=== PATIENT | male | born 1965 | race African-American/Black ===

== ENCOUNTER 2019-12-22 11:22 | Inpatient (IN) | payer OTHER ==
--- NOTE | 2019-12-22 12:03 | BHS.RME ---
Substance Use & Tx History - Substance Use History Alcohol Substance amount: 6 pack beer, 1 pint of vodka Frequency of use: Daily Substance route: Oral Date of Last Use: 12/21/19 Cocaine (Crack) Substance amount: $100 Frequency of use: Daily Substance route: Smoking Date of Last Use: 12/21/19 Cannabis Substance amount: $5 Frequency of use: Daily Substance route: Smoking Date of Last Use: 12/22/19 CIWA Nausea/Vomitin-Int. Nausea w/Dry Heave Muscle Tremors: 4-Moderate,w/Arms Extend Anxiety: 4-Mod. Anxious/Guarded Agitation: 3 Paroxysmal Sweats: 5 Orientation: 0-Oriented Tacttile Disturbances: 3-Moderate Itch/Numb/Burn Auditory Disturbances: 0-None Visual Disturbances: 0-None Headache: 5-Severe (last drank last night at 10:30PM) CIWA-Ar Total Score: 28
--- NOTE | 2019-12-22 13:02 | HP ---
CIWA Score Nausea/Vomitin-Int. Nausea w/Dry Heave Muscle Tremors: 4-Moderate,w/Arms Extend Anxiety: 4-Mod. Anxious/Guarded Agitation: 3 Paroxysmal Sweats: 5 Orientation: 0-Oriented Tacttile Disturbances: 3-Moderate Itch/Numb/Burn Auditory Disturbances: 0-None Visual Disturbances: 0-None Headache: 5-Severe (last drank last night at 10:30PM) CIWA-Ar Total Score: 28 - Admission Criteria OASAS Guidelines: Admission for Medically Managed Detox: Requires at least one of the followin. CIWA greater than 12 2. Seizures within the past 24 hours 3. Delirium tremens within the past 24 hours 4. Hallucinations within the past 24 hours 5. Acute intervention needed for co occurring medical disorder 6. Acute intervention needed for co occurring psychiatric disorder 7. Severe withdrawal that cannot be handled at a lower level of care (continued vomiting, continued diarrhea, abnormal vital signs) requiring intravenous medication and/or fluids 8. Admitting History and Physical - Admission Chief Complaint: Mr. Wilkinson is a 54 yo gentleman who presents asking for detox for alcohol with follow up Rehab. History of Present Illness: Mr. Wilkinson is a 54 yo gentleman who presents asking for detox for alcohol with follow up Rehab. 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 Black out 2-3 days ago. No seizures. 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 Crack: first use age 20 y, last use yesterday, $100. per day Cannabis: first use at [age]age of 10 y, last use this am, $5. per day Cits: 4-10 per day K-2: first use at the age of 46y, last use 2 days ago, neighbor supplies drug, he smokes 2-3 joints per night SOC: domiciled, [facility] History Source: Patient Limitations to Obtaining History: No Limitations - Past Medical History Cardiovascular: Yes: HTN Pulmonary: Yes: Asthma Heme/Onc: Yes: Other (G6PD deficiency) Musculoskeletal: Yes: Osteoarthritis Endocrine: Yes: Diabetes Mellitus - Past Surgical History Additional Past Surgical History: Left hip replacement, left toe bunionectomy, mammoplasty - Alcohol/Substance Use Hx Alcohol Use: Yes History of Substance Use: reports: Cocaine, Marijuana - Social History Usual Living Arrangement: Yes: Alone Admission [facility] - HPI Exam Limitations: No Limitations - Ebola screening Have you traveled outside of the country in the last 21 days: No Have you had contact with anyone from an Ebola affected area: No Have you been sick,other than usual withdrawal symptoms: No Do you have a fever: No - Review of Systems Constitutional: Unexplained wgt Loss (50 lbs loss in the past 4 months) EENT: reports: Other (pain with deep inspiration x 2) Cardiac: reports: No Symptoms Reported GI: reports: Diarrhea, Nausea : reports: No Symptoms Reported Musculoskeletal: reports: Joint Pain Integumentary: reports: No Symptoms Reported Neuro: reports: Headache Endocrine: reports: Unexplained Weight Loss (does not check his sugar) Hematology: reports: No Symptoms Reported Psychiatric: reports: No Sypmtoms Reported Patient History - Smoking Cessation Smoking history: Current every day smoker Have you smoked in the past 12 months: Yes Aproximately how many cigarettes per day: 10 Initiated information on smoking cessation: Yes 'Breaking Loose' booklet given: 12/22/19 Admission Physical Exam [facility] - Physical General Appearance: Yes: Nourished, Appropriately Dressed HEENTM: Yes: Hearing grossly Normal, Other (loose fitting dentures, mildly dysmorphic facies) Respiratory: Yes: Lungs Clear Breast: Yes: Mastectomy (scars beneath both breasts, well healed surgical scars) Cardiology: Yes: Systolic Murmur Abdominal: Yes: Normal Bowel Sounds, Non Tender, Protuberent Back: Yes: Normal Inspection Extremities: Yes: Other (left calf larger than right , bilateral hyperpigmented legs) Neurological: Yes: Alert, Normal Response, Other (mild dysarthria) Integumentary: Yes: Within Normal Limits - Diagnostic (1) Uncomplicated alcohol withdrawal Current Visit: Yes Status: Acute (2) HTN (hypertension) Current Visit: Yes Status: Chronic (3) Diabetes mellitus Current Visit: Yes Status: Chronic (4) Asthma Current Visit: Yes Status: Chronic (5) Osteoarthritis Current Visit: Yes Status: Chronic (6) G6PD deficiency Current Visit: No Status: Chronic (7) Klinefelter syndrome Current Visit: No Status: Chronic Cleared for Admission S - Detox or Rehab [facility] Level of Care: Medically Managed Breathalyzer - Breathalyzer Breathalyzer: 0 Urine Drug Screen - Test Device Lot number: [id number] Expiration date: 10/02/21 - Control Is test valid?: Yes - Results Drug screen NEGATIVE: No Urine drug screen results: THC-Marijuana, BAIRON-Cocaine Inpatient Rehab Admission - Rehab Decision to Admit Inpatient rehab admission?: No
[2019-12-22] MEDS ORDERED: ACETAMINOPHEN 325 MG TABLET (FP) PO PRN ×2 (13:14)
[2019-12-22] MEDS ORDERED: MAGNESIUM CITRATE 300 ML BOTTLE PO PRN (13:14)
[2019-12-22] MEDS ORDERED: MELATONIN 5 MG TABLETS PO PRN (13:14)
[2019-12-22] MEDS ORDERED: BISMUTH SUBSALICYLATE 262 MG/15 ML BTL PO PRN (13:14)
[2019-12-22] MEDS ORDERED: hydrOXYzine PAMOATE 25 MG CAPSULE (FP) PO PRN (13:14)
[2019-12-22] MEDS ORDERED: MAGNESIUM HYDROX 2400MG/30ML ORAL SUSPENSION 30 ML CUP PO PRN (13:14)
[2019-12-22] MEDS ORDERED: MENTHOL/PHENOL 1 EACH UD MM PRN (13:14)
[2019-12-22] MEDS ORDERED: METHOCARBAMOL 500 MG TABLET PO PRN (13:14)
[2019-12-22] MEDS ORDERED: MAG HYDROX/AL HYDROX/SIMETH 30 ML UNIT-DOSE CUP PO PRN (13:14)
[2019-12-22] MEDS ORDERED: chlordiazePOXIDE HCL 25 MG CAPSULE PO PRN (13:14)
[2019-12-22] MEDS ORDERED: GABAPENTIN 300 MG CAPSULE PO PRN (13:26)
[2019-12-22 13:53] VITALS: BMI 28.0
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
[2019-12-22] MEDS: PANTOPRAZOLE 20 MG TABLET PO SCH ×2 (15:02→22:32)
[2019-12-22 16:58] LABS: HEMATOCRIT 42.5 % (35.4-49); HEMOGLOBIN 14.4 GM/dL (11.7-16.9); MCH 34.1 pg (25.7-33.7); MCHC 33.9 g/dl (32.0-35.9); MEAN CELL VOLUME 100.4 fl (80-96); MEAN PLT VOLUME 9.2 fl (7.5-11.1); PLATELET COUNT 153 K/MM3 (134-434); RBC 4.23 M/mm3 (4.00-5.60); RDW 15.4 % (11.9-15.9); WHITE BLOOD COUNT 5.1 K/mm3 (4.0-10.0)
[2019-12-22 17:03] LABS: ALBUMIN 3.6 g/dl (3.4-5.0); BILIRUBIN,TOTAL 0.6 mg/dL (0.2-1); BLOOD UREA NITROGEN 8.3 mg/dL (7-18); CALCIUM 8.8 mg/dL (8.5-10.1); POTASSIUM 4.2 mmol/L (3.5-5.1); TOT PROT 6.7 g/dl (6.4-8.2)
[2019-12-22] MEDS: chlordiazePOXIDE HCL 25 MG CAPSULE PO SCH ×2 (17:23→22:32)
[2019-12-22] MEDS: MIRTAZAPINE 15 MG TABLET (FP) PO SCH (22:32)
[2019-12-22] MEDS: OLANZapine 10 MG TABLET PO SCH (22:32)
[2019-12-22] MEDS: THIAMINE HCL 100 MG TABLET (FP) PO SCH (22:33)
[2019-12-22] MEDS: BUDESONIDE/FORMETEROL FUMARATE 160/4.5 mcg INHALER IH SCH (22:33)
[2019-12-23] MEDS: chlordiazePOXIDE HCL 25 MG CAPSULE PO SCH ×4 (05:40→23:11)
[2019-12-23] MEDS: OLANZapine 10 MG TABLET PO SCH ×2 (10:55→22:54)
[2019-12-23] MEDS: PANTOPRAZOLE 20 MG TABLET PO SCH ×2 (10:55→22:54)
[2019-12-23] MEDS: BUDESONIDE/FORMETEROL FUMARATE 160/4.5 mcg INHALER IH SCH ×2 (10:55→22:55)
[2019-12-23] MEDS: PRENATAL VITAMINS W/ FOLIC ACID TABLET (FP) PO SCH (10:56)
--- NOTE | 2019-12-23 11:18 | PN ---
BHS CIWA - CIWA Score Nausea/Vomitin-Mild Nausea/No Vomiting Muscle Tremors: 3 Anxiety: 2 Agitation: 1-Slight > Activity Paroxysmal Sweats: 1-Minimal Palms Moist Orientation: 0-Oriented Tacttile Disturbances: 0-None Auditory Disturbances: 0-None Visual Disturbances: 1-Very Mild Sensitivity Headache: 0-None Present CIWA-Ar Total Score: 9 BHS Progress Note (SOAP) Subjective: pt states feeling better O: Vital Signs - 24 hr 12/22/19 12/22/19 12/22/19 13:50 16:50 20:37 Temperature 98.4 F 97.5 F L 97.9 F Pulse Rate 101 H 76 72 Respiratory 18 18 18 Rate Blood Pressure 156/85 160/88 151/77 12/23/19 12/23/19 12/23/19 04:31 05:29 09:42 Temperature 98.1 F 98.6 F Pulse Rate 71 65 Respiratory 18 19 17 Rate Blood Pressure 144/76 158/79 Laboratory Tests 12/22/19 12/22/19 12/22/19 13:35 13:35 13:35 WBC 5.1 RBC 4.23 Hgb 14.4 Hct 42.5 MCV 100.4 H MCH 34.1 H MCHC 33.9 RDW 15.4 Plt Count 153 MPV 9.2 Sodium 143 Potassium 4.2 Chloride 113 H Carbon Dioxide 26 Anion Gap 4 L BUN 8.3 Creatinine 1.0 Est GFR (CKD-EPI)AfAm 97.08 Est GFR (CKD-EPI)NonAf 83.76 POC Glucometer Random Glucose 246 H Calcium 8.8 Total Bilirubin 0.6 AST 39 H ALT 41 Alkaline Phosphatase 90 Total Protein 6.7 Albumin 3.6 HIV 1&2 Antibody Screen Cancelled HIV P24 Antigen Cancelled 12/22/19 12/23/19 13:55 05:40 WBC RBC Hgb Hct MCV MCH MCHC RDW Plt Count MPV Sodium Potassium Chloride Carbon Dioxide Anion Gap BUN Creatinine Est GFR (CKD-EPI)AfAm Est GFR (CKD-EPI)NonAf POC Glucometer 183 131 Random Glucose Calcium Total Bilirubin AST ALT Alkaline Phosphatase Total Protein Albumin HIV 1&2 Antibody Screen HIV P24 Antigen a/p AUD- continue detox protocol MH- pt on meds seen by MH consult DM- f/s
[2019-12-23 14:57] LABS: RPR REACTIVE 1:1 (NONREACTIVE)
[2019-12-23] MEDS: THIAMINE HCL 100 MG TABLET (FP) PO SCH (22:54)
[2019-12-23] MEDS: MIRTAZAPINE 15 MG TABLET (FP) PO SCH (22:54)
[2019-12-24] MEDS: chlordiazePOXIDE HCL 25 MG CAPSULE PO SCH ×3 (05:44→17:29)
[2019-12-24] MEDS: OLANZapine 10 MG TABLET PO SCH (10:35)
[2019-12-24] MEDS: BUDESONIDE/FORMETEROL FUMARATE 160/4.5 mcg INHALER IH SCH (10:35)
[2019-12-24] MEDS: PRENATAL VITAMINS W/ FOLIC ACID TABLET (FP) PO SCH (10:35)
--- NOTE | 2019-12-24 12:02 | PN ---
[facility] CIWA - CIWA Score Nausea/Vomitin-No Nausea/No Vomiting Muscle Tremors: 2 Anxiety: 4-Mod. Anxious/Guarded Agitation: 0-Normal Activity Paroxysmal Sweats: No Perspiration Orientation: 1-Uncertain about Date Tacttile Disturbances: 0-None Auditory Disturbances: 0-None Visual Disturbances: 0-None Headache: 2-Mild CIWA-Ar Total Score: 9 S Progress Note (SOAP) Subjective: Patient admitted for alcohol detox Sleepy, guarded, +chills/ mild shakes Objective: 12/24/19 11:59 Laboratory Tests 12/22/19 12/22/19 12/22/19 13:00 13:35 13:35 WBC 5.1 RBC 4.23 Hgb 14.4 Hct 42.5 MCV 100.4 H MCH 34.1 H MCHC 33.9 RDW 15.4 Plt Count 153 MPV 9.2 Sodium 143 Potassium 4.2 Chloride 113 H Carbon Dioxide 26 Anion Gap 4 L BUN 8.3 Creatinine 1.0 Est GFR (CKD-EPI)AfAm 97.08 Est GFR (CKD-EPI)NonAf 83.76 POC Glucometer Random Glucose 246 H Calcium 8.8 Total Bilirubin 0.6 AST 39 H ALT 41 Alkaline Phosphatase 90 Total Protein 6.7 Albumin 3.6 RPR Titer HIV 1&2 Ag/Ab, 4th Gen Non reactive HIV 1&2 Antibody Screen HIV P24 Antigen 12/22/19 12/22/19 12/22/19 13:35 13:35 13:55 WBC RBC Hgb Hct MCV MCH MCHC RDW Plt Count MPV Sodium Potassium Chloride Carbon Dioxide Anion Gap BUN Creatinine Est GFR (CKD-EPI)AfAm Est GFR (CKD-EPI)NonAf POC Glucometer 183 Random Glucose Calcium Total Bilirubin AST ALT Alkaline Phosphatase Total Protein Albumin RPR Titer Reactive 1:1 H HIV 1&2 Ag/Ab, 4th Gen HIV 1&2 Antibody Screen Cancelled HIV P24 Antigen Cancelled 12/23/19 12/24/19 05:40 05:43 WBC RBC Hgb Hct MCV MCH MCHC RDW Plt Count MPV Sodium Potassium Chloride Carbon Dioxide Anion Gap BUN Creatinine Est GFR (CKD-EPI)AfAm Est GFR (CKD-EPI)NonAf POC Glucometer 131 136 Random Glucose Calcium Total Bilirubin AST ALT Alkaline Phosphatase Total Protein Albumin RPR Titer HIV 1&2 Ag/Ab, 4th Gen HIV 1&2 Antibody Screen HIV P24 Antigen Vital Signs Temperature 98.2 F 12/24/19 11:35 Pulse Rate 62 12/24/19 11:35 Respiratory Rate 15 12/24/19 11:35 Blood Pressure 126/72 12/24/19 11:35 O2 Sat by Pulse Oximetry (%) PE exam limited, pt guarded and sleepiness alert and oriented x 3 skin warm and dry ext no visible edema, mild tremors anxious/guarded 12/24/19 12:03 Assessment: 12/24/19 12:02 etoh withdrawal sx Plan: continue detox encourage oral fluids monitor clinically
[2019-12-24] MEDS: PANTOPRAZOLE 20 MG TABLET PO SCH (13:33)
[2019-12-24] MEDS: NICOTINE 7 MG/24 HOURS TOPICAL PATCH TD SCH (19:30)
[2019-12-25] MEDS ORDERED: chlordiazePOXIDE HCL 10 MG CAPSULE PO PRN
[2019-12-25] MEDS: chlordiazePOXIDE HCL 25 MG CAPSULE PO SCH (00:07)
[2019-12-25] MEDS: OLANZapine 10 MG TABLET PO SCH ×3 (00:08→22:26)
[2019-12-25] MEDS: BUDESONIDE/FORMETEROL FUMARATE 160/4.5 mcg INHALER IH SCH ×3 (00:08→22:28)
[2019-12-25] MEDS: PANTOPRAZOLE 20 MG TABLET PO SCH ×3 (00:08→22:26)
[2019-12-25] MEDS: MIRTAZAPINE 15 MG TABLET (FP) PO SCH ×2 (00:08→22:26)
[2019-12-25] MEDS: THIAMINE HCL 100 MG TABLET (FP) PO SCH ×2 (00:08→22:26)
[2019-12-25] MEDS: chlordiazePOXIDE HCL 10 MG CAPSULE PO SCH ×4 (05:54→22:29)
[2019-12-25 07:49] LABS: TREPONEMA ANTIBODY NON REACTIVE (NONREACTIVE)
[2019-12-25] MEDS: PRENATAL VITAMINS W/ FOLIC ACID TABLET (FP) PO SCH (10:59)
[2019-12-25] MEDS: NICOTINE 7 MG/24 HOURS TOPICAL PATCH TD SCH (10:59)
[2019-12-25] MEDS: IBUPROFEN 400 MG TABLET (FP) PO PRN (11:03)
--- NOTE | 2019-12-25 13:14 | PN ---
S CIWA - CIWA Score Nausea/Vomitin-Mild Nausea/No Vomiting Muscle Tremors: 1-None Visible, but [place] Anxiety: 1-Mildly Anxious Agitation: 1-Slight > Activity Paroxysmal Sweats: No Perspiration Orientation: 0-Oriented Tacttile Disturbances: 0-None Auditory Disturbances: 0-None Visual Disturbances: 0-None Headache: 1-Very Mild CIWA-Ar Total Score: 5 BHS Progress Note (SOAP) Subjective: alert,irritable,pain in the body Objective: 12/25/19 13:15 Vital Signs Temperature 97.7 F 12/25/19 10:57 Pulse Rate 75 12/25/19 10:57 Respiratory Rate 18 12/25/19 10:57 Blood Pressure 141/79 12/25/19 10:57 O2 Sat by Pulse Oximetry (%) 12/25/19 13:15 Laboratory 12/22/19 12/22/19 12/22/19 13:00 13:35 13:35 WBC 5.1 K/mm3 K/mm3 (4.0-10.0) RBC 4.23 M/mm3 M/mm3 (4.00-5.60) Hgb 14.4 GM/dL GM/dL (11.7-16.9) Hct 42.5 % % (35.4-49) MCV 100.4 fl H fl (80-96) MCH 34.1 pg H pg (25.7-33.7) MCHC 33.9 g/dl g/dl (32.0-35.9) RDW 15.4 % % (11.9-15.9) Plt Count 153 K/MM3 K/MM3 (134-434) MPV 9.2 fl fl (7.5-11.1) Sodium 143 mmol/L mmol/L (136-145) Potassium 4.2 mmol/L mmol/L (3.5-5.1) Chloride 113 mmol/L H mmol/L (98-107) Carbon Dioxide 26 mmol/L mmol/L (21-32) Anion Gap 4 MMOL/L L MMOL/L (8-16) BUN 8.3 mg/dL mg/dL (7-18) Creatinine 1.0 mg/dL mg/dL (0.55-1.3) Est GFR (CKD-EPI)AfAm 97.08 Est GFR (CKD-EPI)NonAf 83.76 POC Glucometer Random Glucose 246 mg/dL H mg/dL (74-106) Calcium 8.8 mg/dL mg/dL (8.5-10.1) Total Bilirubin 0.6 mg/dL mg/dL (0.2-1) AST 39 U/L H U/L (15-37) ALT 41 U/L U/L (13-61) Alkaline Phosphatase 90 U/L U/L (45-117) Total Protein 6.7 g/dl g/dl (6.4-8.2) Albumin 3.6 g/dl g/dl (3.4-5.0) RPR Titer T.pallidum Ab (MHA) HIV 1&2 Ag/Ab, 4th Gen Non reactive (Non Reactive) HIV 1&2 Antibody Screen HIV P24 Antigen 12/22/19 12/22/19 12/22/19 13:35 13:35 13:55 WBC RBC Hgb Hct MCV MCH MCHC RDW Plt Count MPV Sodium Potassium Chloride Carbon Dioxide Anion Gap BUN Creatinine Est GFR (CKD-EPI)AfAm Est GFR (CKD-EPI)NonAf POC Glucometer 183 UNITS UNITS (80-120) Random Glucose Calcium Total Bilirubin AST ALT Alkaline Phosphatase Total Protein Albumin RPR Titer Reactive 1:1 H (NONREACTIVE) T.pallidum Ab (MHA) Non reactive (NONREACTIVE) HIV 1&2 Ag/Ab, 4th Gen HIV 1&2 Antibody Screen Cancelled HIV P24 Antigen Cancelled 12/23/19 12/24/19 12/25/19 05:40 05:43 05:53 WBC RBC Hgb Hct MCV MCH MCHC RDW Plt Count MPV Sodium Potassium Chloride Carbon Dioxide Anion Gap BUN Creatinine Est GFR (CKD-EPI)AfAm Est GFR (CKD-EPI)NonAf POC Glucometer 131 UNITS UNITS 136 UNITS UNITS 163 UNITS UNITS (80-120) (80-120) (80-120) Random Glucose Calcium Total Bilirubin AST ALT Alkaline Phosphatase Total Protein Albumin RPR Titer T.pallidum Ab (MHA) HIV 1&2 Ag/Ab, 4th Gen HIV 1&2 Antibody Screen HIV P24 Antigen Assessment: 12/25/19 13:16 withdrawal symptom Plan: continue detox librium regimen,bgm monitoring
[2019-12-26] MEDS: chlordiazePOXIDE HCL 10 MG CAPSULE PO SCH ×2 (06:36→17:41)
--- NOTE | 2019-12-26 10:11 | PN ---
[facility] CIWA - CIWA Score Nausea/Vomitin-Mild Nausea/No Vomiting Muscle Tremors: 1-None Visible, but [place] Anxiety: 1-Mildly Anxious Agitation: 1-Slight > Activity Paroxysmal Sweats: No Perspiration Orientation: 0-Oriented Tacttile Disturbances: 1-Very Mild Itch/Numbness Auditory Disturbances: 0-None Visual Disturbances: 0-None Headache: 0-None Present CIWA-Ar Total Score: 5 BHS Progress Note (SOAP) Subjective: alert,anxious,interrupted sleep Objective: 12/26/19 10:09 Vital Signs Temperature 97.0 F L 12/26/19 09:16 Pulse Rate 82 12/26/19 09:16 Respiratory Rate 17 12/26/19 09:16 Blood Pressure 157/85 12/26/19 09:16 O2 Sat by Pulse Oximetry (%) Laboratory Last Values WBC 5.1 K/mm3 (4.0-10.0) 12/22/19 13:35 RBC 4.23 M/mm3 (4.00-5.60) 12/22/19 13:35 Hgb 14.4 GM/dL (11.7-16.9) 12/22/19 13:35 Hct 42.5 % (35.4-49) 12/22/19 13:35 MCV 100.4 fl (80-96) H 12/22/19 13:35 MCH 34.1 pg (25.7-33.7) H 12/22/19 13:35 MCHC 33.9 g/dl (32.0-35.9) 12/22/19 13:35 RDW 15.4 % (11.9-15.9) 12/22/19 13:35 Plt Count 153 K/MM3 (134-434) 12/22/19 13:35 MPV 9.2 fl (7.5-11.1) 12/22/19 13:35 Sodium 143 mmol/L (136-145) 12/22/19 13:35 Potassium 4.2 mmol/L (3.5-5.1) 12/22/19 13:35 Chloride 113 mmol/L (98-107) H 12/22/19 13:35 Carbon Dioxide 26 mmol/L (21-32) 12/22/19 13:35 Anion Gap 4 MMOL/L (8-16) L 12/22/19 13:35 BUN 8.3 mg/dL (7-18) 12/22/19 13:35 Creatinine 1.0 mg/dL (0.55-1.3) 12/22/19 13:35 Est GFR (CKD-EPI)AfAm 97.08 12/22/19 13:35 Est GFR (CKD-EPI)NonAf 83.76 12/22/19 13:35 POC Glucometer 111 UNITS (80-120) 12/26/19 06:35 Random Glucose 246 mg/dL (74-106) H 12/22/19 13:35 Calcium 8.8 mg/dL (8.5-10.1) 12/22/19 13:35 Total Bilirubin 0.6 mg/dL (0.2-1) 12/22/19 13:35 AST 39 U/L (15-37) H 12/22/19 13:35 ALT 41 U/L (13-61) 12/22/19 13:35 Alkaline Phosphatase 90 U/L (45-117) 12/22/19 13:35 Total Protein 6.7 g/dl (6.4-8.2) 12/22/19 13:35 Albumin 3.6 g/dl (3.4-5.0) 12/22/19 13:35 RPR Titer Reactive 1:1 (NONREACTIVE) H 12/22/19 13:35 T.pallidum Ab (MHA) Non reactive (NONREACTIVE) 12/22/19 13:35 HIV 1&2 Ag/Ab, 4th Gen Non reactive (Non Reactive) 12/22/19 13:00 HIV 1&2 Antibody Screen Cancelled 12/22/19 13:35 HIV P24 Antigen Cancelled 12/22/19 13:35 josé luis has been treated for syphilis before Assessment: 12/26/19 10:10 withdrawal symptom Plan: continue detox with librium regimen,discharge in am
[2019-12-26] MEDS: OLANZapine 10 MG TABLET PO SCH ×2 (10:30→23:09)
[2019-12-26] MEDS: BUDESONIDE/FORMETEROL FUMARATE 160/4.5 mcg INHALER IH SCH ×2 (10:41→23:09)
[2019-12-26] MEDS: PANTOPRAZOLE 20 MG TABLET PO SCH ×2 (10:41→23:09)
[2019-12-26] MEDS: PRENATAL VITAMINS W/ FOLIC ACID TABLET (FP) PO SCH (10:41)
[2019-12-26] MEDS: NICOTINE 7 MG/24 HOURS TOPICAL PATCH TD SCH (10:42)
--- NOTE | 2019-12-26 15:15 | PN ---
[facility] Progress Note Note: informed by RN Teodora Vera,to evaluate patient,patient stated he fell in the bath room last night after midnight,hit the back of occipital area, no loc, alert,oriented x 3 no obvious injury to occipital area no pain n the nock lung clear no abdominal pain pin in right hip able to ambulate without difficulty no deformity of extremities Vital Signs Temperature 97.7 F 12/26/19 13:01 Pulse Rate 82 12/26/19 13:01 Respiratory Rate 18 12/26/19 13:01 Blood Pressure 152/65 12/26/19 13:01 O2 Sat by Pulse Oximetry (%) impression history of head injury unwitnessed fall treatment to er for evaluation initiate fall protocol 1 patient refused treatment and evaluation in er,signed release form,consequence explained,patient understood, to continue fall protocol 1,close monitoring
[2019-12-26] MEDS: IBUPROFEN 400 MG TABLET (FP) PO PRN (17:41)
[2019-12-26] MEDS: THIAMINE HCL 100 MG TABLET (FP) PO SCH (23:09)
[2019-12-26] MEDS: MIRTAZAPINE 15 MG TABLET (FP) PO SCH (23:09)
[2019-12-27] MEDS ORDERED: chlordiazePOXIDE HCL 10 MG CAPSULE PO ONE (05:00)
--- NOTE | 2019-12-27 09:00 | PN ---
[facility] CIWA - CIWA Score Nausea/Vomitin-No Nausea/No Vomiting Muscle Tremors: None Anxiety: 1-Mildly Anxious Agitation: 1-Slight > Activity Paroxysmal Sweats: No Perspiration Orientation: 0-Oriented Tacttile Disturbances: 0-None Auditory Disturbances: 0-None Visual Disturbances: 0-None Headache: 0-None Present CIWA-Ar Total Score: 2 BHS Progress Note (SOAP) Subjective: alert,no complaint,ambulation on the unit Objective: 12/27/19 08:59 Vital Signs Temperature 98.1 F 12/27/19 07:23 Pulse Rate 83 12/27/19 07:23 Respiratory Rate 18 12/27/19 07:23 Blood Pressure 139/71 12/27/19 07:23 O2 Sat by Pulse Oximetry (%) 12/27/19 09:02 Laboratory Last Values WBC 5.1 K/mm3 (4.0-10.0) 12/22/19 13:35 RBC 4.23 M/mm3 (4.00-5.60) 12/22/19 13:35 Hgb 14.4 GM/dL (11.7-16.9) 12/22/19 13:35 Hct 42.5 % (35.4-49) 12/22/19 13:35 MCV 100.4 fl (80-96) H 12/22/19 13:35 MCH 34.1 pg (25.7-33.7) H 12/22/19 13:35 MCHC 33.9 g/dl (32.0-35.9) 12/22/19 13:35 RDW 15.4 % (11.9-15.9) 12/22/19 13:35 Plt Count 153 K/MM3 (134-434) 12/22/19 13:35 MPV 9.2 fl (7.5-11.1) 12/22/19 13:35 Sodium 143 mmol/L (136-145) 12/22/19 13:35 Potassium 4.2 mmol/L (3.5-5.1) 12/22/19 13:35 Chloride 113 mmol/L (98-107) H 12/22/19 13:35 Carbon Dioxide 26 mmol/L (21-32) 12/22/19 13:35 Anion Gap 4 MMOL/L (8-16) L 12/22/19 13:35 BUN 8.3 mg/dL (7-18) 12/22/19 13:35 Creatinine 1.0 mg/dL (0.55-1.3) 12/22/19 13:35 Est GFR (CKD-EPI)AfAm 97.08 12/22/19 13:35 Est GFR (CKD-EPI)NonAf 83.76 12/22/19 13:35 POC Glucometer 155 UNITS (80-120) 12/27/19 05:51 Random Glucose 246 mg/dL (74-106) H 12/22/19 13:35 Calcium 8.8 mg/dL (8.5-10.1) 12/22/19 13:35 Total Bilirubin 0.6 mg/dL (0.2-1) 12/22/19 13:35 AST 39 U/L (15-37) H 12/22/19 13:35 ALT 41 U/L (13-61) 12/22/19 13:35 Alkaline Phosphatase 90 U/L (45-117) 12/22/19 13:35 Total Protein 6.7 g/dl (6.4-8.2) 12/22/19 13:35 Albumin 3.6 g/dl (3.4-5.0) 12/22/19 13:35 RPR Titer Reactive 1:1 (NONREACTIVE) H 12/22/19 13:35 T.pallidum Ab (MHA) Non reactive (NONREACTIVE) 12/22/19 13:35 HIV 1&2 Ag/Ab, 4th Gen Non reactive (Non Reactive) 12/22/19 13:00 HIV 1&2 Antibody Screen Cancelled 12/22/19 13:35 HIV P24 Antigen Cancelled 12/22/19 13:35 Assessment: 12/27/19 09:02 detox completed no withdrawal symptom Plan: discharge today,follow up with [facility]
--- NOTE | 2019-12-27 09:11 | DS ---
[facility] Detox Discharge Summary Admission Date: 12/22/19 Discharge Date: 12/27/19 - History Present History: Alcohol Dependence, Cannabis Dependence, Cocaine Dependence Additional Comments: alert,oriented x3 ambulation on the unit heart normal heart sound lung clear no abdominal pain stable for discharge time spending on discharge 30 mins patient going to [facility] for rehab Pertinent Past History: klinefelter syndrome g6pd deficiency history of syphilis history of fall hypertension dm - Physical Exam Results Vital Signs: Vital Signs Temperature 98.1 F 12/27/19 07:23 Pulse Rate 83 12/27/19 07:23 Respiratory Rate 18 12/27/19 07:23 Blood Pressure 139/71 12/27/19 07:23 O2 Sat by Pulse Oximetry (%) Pertinent Admission Physical Exam Findings: withdrawal sympto - Treatment Hospital Course: Detox Protocol Followed, Detoxed Safely, Responded well, Discharged Condition Good, Rehab Referral Accepted Patient has Accepted a Rehab Referral to: [facility] - Medication Discharge Medications: Ambulatory Orders Budesonide/Formeterol Fumarate [SYMBICORT 160/4.5mcg -] 1 inh PO BID 12/22/19 Gabapentin [Neurontin] 600 mg PO TID PRN 12/22/19 Metoprolol Succinate [Toprol Xl] 100 mg PO DAILY 12/22/19 Mirtazapine 45 mg PO HS 12/22/19 Olanzapine [Zyprexa] 10 mg PO DAILY 12/22/19 Omeprazole 20 mg PO BID 12/22/19 metFORMIN HCL [Metformin HCl ER] 500 mg PO DAILY 12/22/19 Albuterol Sulfate Inhaler - [Ventolin HFA Inhaler -] 2 puff IH Q4H PRN #0 inhaler 12/27/19 - Diagnosis (1) Alcohol dependence with uncomplicated withdrawal Current Visit: Yes Status: Acute (2) Cannabis dependence Current Visit: Yes Status: Acute (3) Cocaine dependence Current Visit: Yes Status: Acute (4) Asthma Current Visit: Yes Status: Chronic (5) Diabetes mellitus Current Visit: Yes Status: Chronic (6) HTN (hypertension) Current Visit: Yes Status: Chronic (7) Nicotine dependence Current Visit: Yes Status: Chronic (8) Osteoarthritis Current Visit: Yes Status: Chronic (9) Schizoaffective disorder Current Visit: Yes Status: Chronic (10) G6PD deficiency Current Visit: No Status: Chronic (11) Klinefelter syndrome Current Visit: No Status: Chronic - AMA Did Patient Leave Against Medical Advice: No
[2019-12-27] MEDS ORDERED: ALBUTEROL SO4 HFA INHALER IH PRN (09:15)
[2019-12-27] MEDS: BUDESONIDE/FORMETEROL FUMARATE 160/4.5 mcg INHALER IH SCH (10:46)
[2019-12-27] MEDS: OLANZapine 10 MG TABLET PO SCH (10:46)
[2019-12-27] MEDS: NICOTINE 7 MG/24 HOURS TOPICAL PATCH TD SCH (10:46)
[2019-12-27] MEDS: PANTOPRAZOLE 20 MG TABLET PO SCH (10:46)
[2019-12-27] MEDS: PRENATAL VITAMINS W/ FOLIC ACID TABLET (FP) PO SCH (10:46)
[2019-12-27 10:53] VITALS: BP 162/82; PULSE 89; TEMP 97.8
== END 2019-12-27 10:59 | disposition home or self-care (01) | DRG 774 ==
LOC: YASAS 11:22 → Y6N 13:39
PROVIDERS: ADMIT Allergy & Immunology; ATTEND Allergy & Immunology
PROC: HZ2ZZZZ Detoxification Services for Substance Abuse Treatment (ICD-10-PCS; principal; 2019-12-22)
DX: F10.230 Alcohol dependence with withdrawal, uncomplicated (principal); F14.20 Cocaine dependence, uncomplicated; F12.20 Cannabis dependence, uncomplicated; F17.210 Nicotine dependence, cigarettes, uncomplicated; F19.282 Other psychoactive substance dependence with psychoactive substance-induced sleep disorder; F19.280 Other psychoactive substance dependence with psychoactive substance-induced anxiety disorder; F25.9 Schizoaffective disorder, unspecified; D75.A Glucose-6-phosphate dehydrogenase (G6PD) deficiency without anemia; J45.909 Unspecified asthma, uncomplicated; I10 Essential (primary) hypertension; E11.9 Type 2 diabetes mellitus without complications; Z79.84 Long term (current) use of oral hypoglycemic drugs; M19.90 Unspecified osteoarthritis, unspecified site; Q98.4 Klinefelter syndrome, unspecified; S09.8XXA Other specified injuries of head, initial encounter; W18.39XA Other fall on same level, initial encounter; Y93.89 Activity, other specified; Y92.231 Patient bathroom in hospital as the place of occurrence of the external cause; Y99.8 Other external cause status; Z86.19 Personal history of other infectious and parasitic diseases; Z62.810 Personal history of physical and sexual abuse in childhood
CPT/HCPCS: 36415; 80053; 82962; 85027; 86593; 86780; 87389

== ENCOUNTER 2020-11-21 13:23 | Inpatient (IN) | payer OTHER ==
[2020-11-21 13:39] VITALS: BMI 28.8
[2020-11-21] MEDS ORDERED: ACETAMINOPHEN 325 MG TABLET (FP) PO ONE (13:57)
[2020-11-21] MEDS ORDERED: ACETAMINOPHEN 325 MG TABLET (FP) ONE (14:11)
[2020-11-21 14:20] LABS: BASO % 0.7 % (0-2.0); EOS % 2.8 % (0-4.5); HEMATOCRIT 41.6 % (35.4-49); HEMOGLOBIN 13.8 GM/dL (11.7-16.9); LYMPH % 25.5 % (8-40); MCH 33.2 pg (25.7-33.7); MEAN CELL VOLUME 100.4 fl (80-96); MEAN PLT VOLUME 8.7 fl (7.5-11.1); MONO % 8.2 % (3.8-10.2); NEUT % 62.8 % (42.8-82.8); PLATELET COUNT 174 K/MM3 (134-434); RBC 4.14 M/mm3 (4.00-5.60); RDW 14.9 % (11.9-15.9); WHITE BLOOD COUNT 5.6 K/mm3 (4.0-10.0)
[2020-11-21 14:42] LABS: POTASSIUM 4.3 mmol/L (3.5-5.1)
[2020-11-21 14:44] LABS: CALCIUM 8.8 mg/dL (8.5-10.1)
[2020-11-21 14:45] LABS: ALBUMIN 3.5 g/dl (3.4-5.0); BLOOD UREA NITROGEN 7.9 mg/dL (7-18)
[2020-11-21 14:50] LABS: BILIRUBIN,TOTAL 0.6 mg/dL (0.2-1); TOT PROT 6.6 g/dl (6.4-8.2)
[2020-11-21] MEDS ORDERED: chlordiazePOXIDE HCL 25 MG CAPSULE PO ONE (15:48)
[2020-11-21] MEDS ORDERED: chlordiazePOXIDE HCL 25 MG CAPSULE ONE ×2 (15:52→22:40)
[2020-11-21] MEDS ORDERED: ACETAMINOPHEN 325 MG TABLET (FP) PO PRN (16:07)
[2020-11-21] MEDS ORDERED: chlordiazePOXIDE HCL 25 MG CAPSULE PO PRN (16:40)
[2020-11-21] MEDS: INSULIN SLIDING SCALE (NOVOLOG) 1 VIAL SQ SCH ×2 (18:52→23:41)
[2020-11-21] MEDS ORDERED: ASPIRIN 81 MG CHEWABLE TABLETS PO ONE (19:15)
[2020-11-21] MEDS ORDERED: ASPIRIN 81 MG CHEWABLE TABLETS ONE (21:33)
[2020-11-21] MEDS ORDERED: OLANZapine 10 MG TABLET ONE (22:40)
[2020-11-21] MEDS ORDERED: MIRTAZAPINE 15 MG TABLET (FP) ONE (22:40)
[2020-11-21] MEDS: chlordiazePOXIDE HCL 25 MG CAPSULE PO SCH (23:00)
[2020-11-21] MEDS: OLANZapine 10 MG TABLET PO SCH (23:00)
[2020-11-21] MEDS: MIRTAZAPINE 30 MG TABLET PO SCH (23:00)
[2020-11-22] MEDS ORDERED: chlordiazePOXIDE HCL 25 MG CAPSULE ONE ×3 (06:13→17:44)
[2020-11-22] MEDS: chlordiazePOXIDE HCL 25 MG CAPSULE PO SCH ×3 (06:23→17:34)
[2020-11-22 07:23] LABS: HEMATOCRIT 40.3 % (35.4-49); HEMOGLOBIN 13.3 GM/dL (11.7-16.9); MCH 33.7 pg (25.7-33.7); MCHC 32.9 g/dl (32.0-35.9); MEAN CELL VOLUME 102.2 fl (80-96); MEAN PLT VOLUME 9.3 fl (7.5-11.1); PLATELET COUNT 152 K/MM3 (134-434); RBC 3.94 M/mm3 (4.00-5.60); RDW 14.6 % (11.9-15.9); WHITE BLOOD COUNT 3.7 K/mm3 (4.0-10.0)
[2020-11-22 07:38] LABS: POTASSIUM 4.1 mmol/L (3.5-5.1)
[2020-11-22 07:41] LABS: CALCIUM 8.5 mg/dL (8.5-10.1)
[2020-11-22 07:42] LABS: BLOOD UREA NITROGEN 9.3 mg/dL (7-18); MAGNESIUM 2.1 mg/dL (1.8-2.4)
[2020-11-22 07:45] LABS: ALBUMIN 3.1 g/dl (3.4-5.0); BILIRUBIN,TOTAL 0.4 mg/dL (0.2-1); CREATININE 0.9 mg/dL (0.55-1.3); PHOSPHOROUS 4.3 mg/dL (2.5-4.9)
[2020-11-22] MEDS: INSULIN SLIDING SCALE (NOVOLOG) 1 VIAL SQ SCH ×4 (08:27→21:21)
[2020-11-22] MEDS ORDERED: TOPIRAMATE 25 MG TABLET ONE (10:09)
[2020-11-22] MEDS ORDERED: metoPROLOL SUCCINATE 25 MG TAB.SR.24H (FP) ONE (10:09)
[2020-11-22] MEDS ORDERED: OLANZapine 10 MG TABLET ONE ×2 (10:09→21:02)
[2020-11-22] MEDS: metoPROLOL SUCCINATE 25 MG TAB.SR.24H (FP) PO SCH (10:44)
[2020-11-22] MEDS: OLANZapine 10 MG TABLET PO SCH ×2 (10:44→21:21)
[2020-11-22] MEDS: TOPIRAMATE 25 MG TABLET PO SCH (10:44)
[2020-11-22] MEDS ORDERED: FOLIC ACID INJECTION - 1 MG, THIAMINE HCL 100 MG, MULTIVIT INJECTION ADULT 10 ML in SOD... IVPB ONE (13:10)
[2020-11-22] MEDS ORDERED: ASPIRIN 81 MG CHEWABLE TABLETS ONE (14:00)
[2020-11-22] MEDS ORDERED: FAMOTIDINE 20 MG/50 ML IVPB 20 MG/50 ML MG IVPB ONE ×2 (14:00→21:02)
[2020-11-22] MEDS: FAMOTIDINE 20 MG/50 ML IVPB 20 MG/50 ML MG IVPB SCH ×2 (14:15→21:48)
[2020-11-22] MEDS: ASPIRIN 81 MG CHEWABLE TABLETS PO SCH (14:15)
[2020-11-22 17:19] LABS: METHADONE, UR NEGATIVE ng/ml (CUTOFF=300); OPIATES, URI NEGATIVE ng/ml (CUTOFF=300); PHENCYCLIDINE,URINE NEGATIVE ng/ml (CUTOFF=25)
[2020-11-22 17:44] LABS: URINE AMPHETAMINES NEGATIVE ng/ml (CUTOFF=500); URINE BARBITURATES NEGATIVE ng/ml (CUTOFF=200)
[2020-11-22 17:56] LABS: URINE BENZODIAZEPINES POSITIVE ng/ml (CUTOFF=200)
[2020-11-22 17:57] LABS: COCAINE, UR POSITIVE ng/ml (CUTOFF=300)
[2020-11-22] MEDS ORDERED: MIRTAZAPINE 15 MG TABLET (FP) ONE (21:02)
[2020-11-22] MEDS: MIRTAZAPINE 30 MG TABLET PO SCH (21:21)
[2020-11-23] MEDS: chlordiazePOXIDE HCL 25 MG CAPSULE PO SCH ×5 (05:37→23:33)
[2020-11-23] MEDS: INSULIN SLIDING SCALE (NOVOLOG) 1 VIAL SQ SCH ×4 (06:27→21:16)
[2020-11-23 08:49] LABS: BASO % 1.2 % (0-2.0); EOS % 7.4 % (0-4.5); HEMATOCRIT 37.7 % (35.4-49); HEMOGLOBIN 12.5 GM/dL (11.7-16.9); LYMPH % 37.6 % (8-40); MCH 33.7 pg (25.7-33.7); MEAN CELL VOLUME 102.2 fl (80-96); MEAN PLT VOLUME 9.3 fl (7.5-11.1); MONO % 8.6 % (3.8-10.2); NEUT % 45.2 % (42.8-82.8); PLATELET COUNT 142 K/MM3 (134-434); RBC 3.69 M/mm3 (4.00-5.60); RDW 14.6 % (11.9-15.9); WHITE BLOOD COUNT 3.6 K/mm3 (4.0-10.0)
[2020-11-23] MEDS ORDERED: PT OWN MED DRAWER 7, Y5N ONE ×4 (09:01→20:58)
[2020-11-23 09:03] LABS: POTASSIUM 4.2 mmol/L (3.5-5.1)
[2020-11-23] MEDS: ASPIRIN 81 MG CHEWABLE TABLETS PO SCH (09:16)
[2020-11-23] MEDS: FOLIC ACID 1 MG TABLET (FP) PO SCH (09:16)
[2020-11-23] MEDS: THIAMINE HCL 100 MG TABLET (FP) PO SCH (09:16)
[2020-11-23] MEDS: metoPROLOL SUCCINATE 25 MG TAB.SR.24H (FP) PO SCH (09:16)
[2020-11-23] MEDS: MULTIVITAMINS (DAILY MVI) TABLET (FP) PO SCH (09:16)
[2020-11-23] MEDS: OLANZapine 10 MG TABLET PO SCH ×2 (09:17→23:34)
[2020-11-23] MEDS: FAMOTIDINE 20 MG/50 ML IVPB 20 MG/50 ML MG IVPB SCH ×2 (09:17→21:16)
[2020-11-23 09:18] LABS: CALCIUM 8.3 mg/dL (8.5-10.1)
[2020-11-23 09:19] LABS: ALBUMIN 2.9 g/dl (3.4-5.0); MAGNESIUM 2.1 mg/dL (1.8-2.4)
[2020-11-23 09:20] LABS: PHOSPHOROUS 4.5 mg/dL (2.5-4.9)
[2020-11-23 09:22] LABS: BILIRUBIN,TOTAL 0.5 mg/dL (0.2-1); TOT PROT 5.5 g/dl (6.4-8.2)
[2020-11-23] MEDS: TOPIRAMATE 25 MG TABLET PO SCH (13:36)
[2020-11-23] MEDS ORDERED: MIRTAZAPINE 15 MG TABLET (FP) ONE (20:57)
[2020-11-23] MEDS ORDERED: NICOTINE 14 MG/24 HOURS TOPICAL PATCH TD ONE (21:09)
[2020-11-23] MEDS: MIRTAZAPINE 30 MG TABLET PO SCH (21:15)
[2020-11-23] MEDS: ATORVASTATIN CA 80 MG TABLET (FP) PO SCH (21:15)
[2020-11-24] MEDS ORDERED: chlordiazePOXIDE HCL 10 MG CAPSULE PO PRN
[2020-11-24] MEDS: chlordiazePOXIDE HCL 10 MG CAPSULE PO SCH ×4 (05:48→22:51)
[2020-11-24] MEDS: INSULIN SLIDING SCALE (NOVOLOG) 1 VIAL SQ SCH ×4 (06:09→22:22)
[2020-11-24 07:23] LABS: BASO % 0.8 % (0-2.0); EOS % 7.3 % (0-4.5); HEMATOCRIT 36.7 % (35.4-49); HEMOGLOBIN 12.1 GM/dL (11.7-16.9); LYMPH % 36.7 % (8-40); MCH 33.7 pg (25.7-33.7); MCHC 33.1 g/dl (32.0-35.9); NEUT % 46.2 % (42.8-82.8); PLATELET COUNT 125 K/MM3 (134-434); RDW 14.9 % (11.9-15.9); WHITE BLOOD COUNT 3.5 K/mm3 (4.0-10.0)
[2020-11-24 07:33] LABS: POTASSIUM 4.3 mmol/L (3.5-5.1)
[2020-11-24 07:44] LABS: BLOOD UREA NITROGEN 17.8 mg/dL (7-18); CALCIUM 8.3 mg/dL (8.5-10.1)
[2020-11-24 07:45] LABS: ALBUMIN 2.8 g/dl (3.4-5.0); MAGNESIUM 2.1 mg/dL (1.8-2.4)
[2020-11-24 07:47] LABS: CREATININE 1.2 mg/dL (0.55-1.3)
[2020-11-24 07:49] LABS: BILIRUBIN,TOTAL 0.4 mg/dL (0.2-1); PHOSPHOROUS 4.2 mg/dL (2.5-4.9); TOT PROT 5.6 g/dl (6.4-8.2)
[2020-11-24] MEDS ORDERED: PT OWN MED DRAWER 7, Y5N ONE ×2 (09:17→21:38)
[2020-11-24] MEDS: FAMOTIDINE 20 MG/50 ML IVPB 20 MG/50 ML MG IVPB SCH ×2 (09:43→21:55)
[2020-11-24] MEDS: metoPROLOL SUCCINATE 25 MG TAB.SR.24H (FP) PO SCH (09:43)
[2020-11-24] MEDS: ENOXAPARIN NA (PORCINE) 40 MG/0.4 ML DISP.SYRIN SQ SCH (09:43)
[2020-11-24] MEDS: FOLIC ACID 1 MG TABLET (FP) PO SCH (09:43)
[2020-11-24] MEDS: ASPIRIN 81 MG CHEWABLE TABLETS PO SCH (09:43)
[2020-11-24] MEDS: MULTIVITAMINS (DAILY MVI) TABLET (FP) PO SCH (09:43)
[2020-11-24] MEDS: THIAMINE HCL 100 MG TABLET (FP) PO SCH (09:43)
[2020-11-24] MEDS: OLANZapine 10 MG TABLET PO SCH ×2 (09:44→21:55)
[2020-11-24] MEDS: TOPIRAMATE 25 MG TABLET PO SCH (09:44)
[2020-11-24] MEDS ORDERED: MIRTAZAPINE 15 MG TABLET (FP) ONE (21:37)
[2020-11-24] MEDS: ATORVASTATIN CA 80 MG TABLET (FP) PO SCH (21:54)
[2020-11-24] MEDS: MIRTAZAPINE 30 MG TABLET PO SCH (21:55)
[2020-11-25] MEDS: chlordiazePOXIDE HCL 10 MG CAPSULE PO SCH ×2 (05:58→17:12)
[2020-11-25] MEDS: INSULIN SLIDING SCALE (NOVOLOG) 1 VIAL SQ SCH ×4 (05:59→23:44)
[2020-11-25] MEDS ORDERED: PT OWN MED DRAWER 7, Y5N ONE ×3 (08:59→22:57)
[2020-11-25] MEDS: FAMOTIDINE 20 MG/50 ML IVPB 20 MG/50 ML MG IVPB SCH ×2 (09:09→23:02)
[2020-11-25] MEDS: ENOXAPARIN NA (PORCINE) 40 MG/0.4 ML DISP.SYRIN SQ SCH (09:09)
[2020-11-25] MEDS: MULTIVITAMINS (DAILY MVI) TABLET (FP) PO SCH (09:10)
[2020-11-25] MEDS: metoPROLOL SUCCINATE 25 MG TAB.SR.24H (FP) PO SCH (09:10)
[2020-11-25] MEDS: ASPIRIN 81 MG CHEWABLE TABLETS PO SCH (09:10)
[2020-11-25] MEDS: THIAMINE HCL 100 MG TABLET (FP) PO SCH (09:10)
[2020-11-25] MEDS: FOLIC ACID 1 MG TABLET (FP) PO SCH (09:10)
[2020-11-25] MEDS: TOPIRAMATE 25 MG TABLET PO SCH (09:11)
[2020-11-25] MEDS: OLANZapine 10 MG TABLET PO SCH ×2 (09:11→23:02)
[2020-11-25] MEDS ORDERED: MIRTAZAPINE 15 MG TABLET (FP) ONE (22:56)
[2020-11-25] MEDS: ATORVASTATIN CA 80 MG TABLET (FP) PO SCH (23:01)
[2020-11-25] MEDS: MIRTAZAPINE 30 MG TABLET PO SCH (23:02)
[2020-11-26] MEDS ORDERED: chlordiazePOXIDE HCL 10 MG CAPSULE PO ONE (05:00)
[2020-11-26] MEDS: INSULIN SLIDING SCALE (NOVOLOG) 1 VIAL SQ SCH ×3 (06:35→16:00)
[2020-11-26 07:32] LABS: BASO % 0.8 % (0-2.0); HEMATOCRIT 40.2 % (35.4-49); HEMOGLOBIN 13.3 GM/dL (11.7-16.9); LYMPH % 35.1 % (8-40); MCH 33.8 pg (25.7-33.7); MCHC 33.2 g/dl (32.0-35.9); MEAN CELL VOLUME 101.9 fl (80-96); MEAN PLT VOLUME 8.4 fl (7.5-11.1); MONO % 9.3 % (3.8-10.2); NEUT % 47.8 % (42.8-82.8); PLATELET COUNT 138 K/MM3 (134-434); RBC 3.95 M/mm3 (4.00-5.60); RDW 14.4 % (11.9-15.9); WHITE BLOOD COUNT 3.5 K/mm3 (4.0-10.0)
[2020-11-26 08:35] LABS: CALCIUM 8.6 mg/dL (8.5-10.1)
[2020-11-26 08:36] LABS: BLOOD UREA NITROGEN 15.8 mg/dL (7-18); MAGNESIUM 2.1 mg/dL (1.8-2.4); PHOSPHOROUS 4.4 mg/dL (2.5-4.9)
[2020-11-26 08:37] LABS: BILIRUBIN,TOTAL 0.9 mg/dL (0.2-1)
[2020-11-26 08:38] LABS: TOT PROT 5.7 g/dl (6.4-8.2)
[2020-11-26 08:39] LABS: CREATININE 0.9 mg/dL (0.55-1.3)
[2020-11-26] MEDS: ENOXAPARIN NA (PORCINE) 40 MG/0.4 ML DISP.SYRIN SQ SCH (09:39)
[2020-11-26] MEDS: ASPIRIN 81 MG CHEWABLE TABLETS PO SCH (09:40)
[2020-11-26] MEDS: FOLIC ACID 1 MG TABLET (FP) PO SCH (09:40)
[2020-11-26] MEDS: TOPIRAMATE 25 MG TABLET PO SCH (09:40)
[2020-11-26] MEDS: THIAMINE HCL 100 MG TABLET (FP) PO SCH (09:40)
[2020-11-26] MEDS: metoPROLOL SUCCINATE 25 MG TAB.SR.24H (FP) PO SCH (09:40)
[2020-11-26] MEDS: MULTIVITAMINS (DAILY MVI) TABLET (FP) PO SCH (09:40)
[2020-11-26] MEDS: OLANZapine 10 MG TABLET PO SCH (09:40)
[2020-11-26] MEDS: FAMOTIDINE 20 MG/50 ML IVPB 20 MG/50 ML MG IVPB SCH (09:50)
[2020-11-26 16:02] VITALS: BP 125/59; PULSE 70; TEMP 97.9
== END 2020-11-26 16:52 | disposition other institution (70) | DRG 774 ==
LOC: JER 13:23 → OBSVTOIN 16:11 → JERBED 16:11 → J4W 11-23 00:01 → JERBED 11-23 00:37 → J4W 11-23 00:39
PROVIDERS: ADMIT Internal Medicine; ATTEND Student in an Organized Health Care Education/Training Program
PROC: HZ2ZZZZ Detoxification Services for Substance Abuse Treatment (ICD-10-PCS; principal; 2020-11-21)
DX: F14.288 Cocaine dependence with other cocaine-induced disorder (principal); I10 Essential (primary) hypertension; E11.9 Type 2 diabetes mellitus without complications; Q98.4 Klinefelter syndrome, unspecified; I25.2 Old myocardial infarction; F10.230 Alcohol dependence with withdrawal, uncomplicated; F25.9 Schizoaffective disorder, unspecified; I42.2 Other hypertrophic cardiomyopathy; I25.119 Atherosclerotic heart disease of native coronary artery with unspecified angina pectoris; I31.3 Pericardial effusion (noninflammatory); J44.9 Chronic obstructive pulmonary disease, unspecified; J45.909 Unspecified asthma, uncomplicated; E78.5 Hyperlipidemia, unspecified; I24.8 Other forms of acute ischemic heart disease; Z96.649 Presence of unspecified artificial hip joint
CPT/HCPCS: 36415; 71046-TC-FY; 80053; 80061; 80307; 82550; 82962; 83036; 83721; 83735; 84100; 84443; 84484; 85025; 85027; 93005; 93010; 93306-TC; 99285-25; C9803; U0003

== ENCOUNTER 2020-11-26 17:26 | Inpatient (IN) | payer OTHER ==
[2020-11-26 17:53] VITALS: BMI 28.8
[2020-11-26] MEDS ORDERED: MAG HYDROX/AL HYDROX/SIMETH 30 ML UNIT-DOSE CUP PO PRN (18:02)
[2020-11-26] MEDS ORDERED: IBUPROFEN 400 MG TABLET (FP) PO PRN (18:02)
[2020-11-26] MEDS ORDERED: LOPERAMIDE HCL 2 MG CAPSULE PO PRN (18:02)
[2020-11-26] MEDS ORDERED: ACETAMINOPHEN 325 MG TABLET (FP) PO PRN (18:02)
[2020-11-26] MEDS ORDERED: P-EPHED 60MG/TRIPROLIDI 2.5MG TABLET PO PRN (18:02)
[2020-11-26] MEDS ORDERED: MAGNESIUM CITRATE 300 ML BOTTLE PO PRN (18:02)
[2020-11-26] MEDS ORDERED: NICOTINE POLACRILEX 2 MG GUM BC PRN (18:02)
[2020-11-26] MEDS ORDERED: MAGNESIUM HYDROX 2400MG/30ML ORAL SUSPENSION 30 ML CUP PO PRN (18:02)
[2020-11-26] MEDS ORDERED: guaiFENesin 200 MG/10 ML 10 ML UNIT-DOSE CUPS PO PRN (18:02)
[2020-11-26] MEDS: MELATONIN 5 MG TABLETS PO SCH (21:50)
[2020-11-26] MEDS: PANTOPRAZOLE 20 MG TABLET PO SCH (21:50)
[2020-11-26] MEDS: ATORVASTATIN CA 40 MG TABLET (FP) PO SCH (21:50)
[2020-11-26] MEDS: THIAMINE HCL 100 MG TABLET (FP) PO SCH (21:50)
[2020-11-27] MEDS: metFORMIN HCL 500 MG TABLET (FP) PO SCH ×2 (06:53→16:39)
[2020-11-27] MEDS: ASPIRIN 81 MG CHEWABLE TABLETS PO SCH (09:50)
[2020-11-27] MEDS: NICOTINE 21 MG/24 HOURS TOPICAL PATCH TD SCH (09:50)
[2020-11-27] MEDS: PANTOPRAZOLE 20 MG TABLET PO SCH ×2 (09:50→21:51)
[2020-11-27] MEDS: PRENATAL VITAMINS W/ FOLIC ACID TABLET (FP) PO SCH (09:50)
[2020-11-27] MEDS: FOLIC ACID 1 MG TABLET (FP) PO SCH (09:50)
[2020-11-27] MEDS: metoPROLOL SUCCINATE 25 MG TAB.SR.24H (FP) PO SCH (09:51)
[2020-11-27] MEDS: OLANZapine 10 MG TABLET PO SCH ×2 (10:51→21:51)
[2020-11-27] MEDS: MELATONIN 5 MG TABLETS PO SCH (21:50)
[2020-11-27] MEDS: THIAMINE HCL 100 MG TABLET (FP) PO SCH (21:50)
[2020-11-27] MEDS: MIRTAZAPINE 30 MG TABLET PO SCH (21:51)
[2020-11-27] MEDS: ATORVASTATIN CA 40 MG TABLET (FP) PO SCH (21:51)
[2020-11-28] MEDS: metFORMIN HCL 500 MG TABLET (FP) PO SCH ×2 (06:40→16:55)
[2020-11-28] MEDS: OLANZapine 10 MG TABLET PO SCH ×2 (09:37→21:52)
[2020-11-28] MEDS: ASPIRIN 81 MG CHEWABLE TABLETS PO SCH (09:38)
[2020-11-28] MEDS: PANTOPRAZOLE 20 MG TABLET PO SCH ×2 (09:38→21:52)
[2020-11-28] MEDS: NICOTINE 21 MG/24 HOURS TOPICAL PATCH TD SCH (09:38)
[2020-11-28] MEDS: PRENATAL VITAMINS W/ FOLIC ACID TABLET (FP) PO SCH (09:38)
[2020-11-28] MEDS: FOLIC ACID 1 MG TABLET (FP) PO SCH (11:10)
[2020-11-28] MEDS: metoPROLOL SUCCINATE 25 MG TAB.SR.24H (FP) PO SCH (11:10)
[2020-11-28] MEDS: THIAMINE HCL 100 MG TABLET (FP) PO SCH (21:52)
[2020-11-28] MEDS: MELATONIN 5 MG TABLETS PO SCH (21:52)
[2020-11-28] MEDS: ATORVASTATIN CA 40 MG TABLET (FP) PO SCH (21:52)
[2020-11-28] MEDS: MIRTAZAPINE 30 MG TABLET PO SCH (21:52)
[2020-11-29] MEDS: metFORMIN HCL 500 MG TABLET (FP) PO SCH ×2 (06:49→16:45)
[2020-11-29] MEDS: ASPIRIN 81 MG CHEWABLE TABLETS PO SCH (09:13)
[2020-11-29] MEDS: FOLIC ACID 1 MG TABLET (FP) PO SCH (09:14)
[2020-11-29] MEDS: NICOTINE 21 MG/24 HOURS TOPICAL PATCH TD SCH (09:14)
[2020-11-29] MEDS: PRENATAL VITAMINS W/ FOLIC ACID TABLET (FP) PO SCH (09:14)
[2020-11-29] MEDS: PANTOPRAZOLE 20 MG TABLET PO SCH ×2 (09:14→21:52)
[2020-11-29] MEDS: OLANZapine 10 MG TABLET PO SCH ×2 (09:15→21:52)
[2020-11-29] MEDS: metoPROLOL SUCCINATE 25 MG TAB.SR.24H (FP) PO SCH (09:15)
[2020-11-29] MEDS: MIRTAZAPINE 30 MG TABLET PO SCH (21:52)
[2020-11-29] MEDS: MELATONIN 5 MG TABLETS PO SCH (21:52)
[2020-11-29] MEDS: ATORVASTATIN CA 40 MG TABLET (FP) PO SCH (21:52)
[2020-11-29] MEDS: THIAMINE HCL 100 MG TABLET (FP) PO SCH (21:52)
[2020-11-30] MEDS: metFORMIN HCL 500 MG TABLET (FP) PO SCH ×2 (06:32→16:58)
[2020-11-30] MEDS: PRENATAL VITAMINS W/ FOLIC ACID TABLET (FP) PO SCH (09:26)
[2020-11-30] MEDS: FOLIC ACID 1 MG TABLET (FP) PO SCH (09:26)
[2020-11-30] MEDS: metoPROLOL SUCCINATE 25 MG TAB.SR.24H (FP) PO SCH (09:26)
[2020-11-30] MEDS: NICOTINE 21 MG/24 HOURS TOPICAL PATCH TD SCH (09:26)
[2020-11-30] MEDS: ASPIRIN 81 MG CHEWABLE TABLETS PO SCH (09:26)
[2020-11-30] MEDS: OLANZapine 10 MG TABLET PO SCH ×2 (09:26→21:07)
[2020-11-30] MEDS: PANTOPRAZOLE 20 MG TABLET PO SCH ×2 (09:27→21:08)
[2020-11-30] MEDS: LIDOCAINE 5% TOPICAL PATCH TP SCH (14:46)
[2020-11-30] MEDS: MIRTAZAPINE 30 MG TABLET PO SCH (21:07)
[2020-11-30] MEDS: ATORVASTATIN CA 40 MG TABLET (FP) PO SCH (21:08)
[2020-11-30] MEDS: THIAMINE HCL 100 MG TABLET (FP) PO SCH (21:08)
[2020-11-30] MEDS: MELATONIN 5 MG TABLETS PO SCH (21:08)
[2020-11-30] MEDS: LIDOCAINE PATCH REMOVAL MC SCH (21:08)
[2020-12-01] MEDS: metFORMIN HCL 500 MG TABLET (FP) PO SCH ×2 (06:52→17:05)
[2020-12-01] MEDS: ASPIRIN 81 MG CHEWABLE TABLETS PO SCH (09:27)
[2020-12-01] MEDS: metoPROLOL SUCCINATE 25 MG TAB.SR.24H (FP) PO SCH (09:27)
[2020-12-01] MEDS: PANTOPRAZOLE 20 MG TABLET PO SCH ×2 (09:27→21:41)
[2020-12-01] MEDS: PRENATAL VITAMINS W/ FOLIC ACID TABLET (FP) PO SCH (09:27)
[2020-12-01] MEDS: OLANZapine 10 MG TABLET PO SCH ×2 (09:27→21:41)
[2020-12-01] MEDS: LIDOCAINE 5% TOPICAL PATCH TP SCH (09:28)
[2020-12-01] MEDS: FOLIC ACID 1 MG TABLET (FP) PO SCH (09:28)
[2020-12-01] MEDS: NICOTINE 21 MG/24 HOURS TOPICAL PATCH TD SCH (09:28)
[2020-12-01] MEDS: THIAMINE HCL 100 MG TABLET (FP) PO SCH (21:38)
[2020-12-01] MEDS: LIDOCAINE PATCH REMOVAL MC SCH (21:39)
[2020-12-01] MEDS: ATORVASTATIN CA 40 MG TABLET (FP) PO SCH (21:39)
[2020-12-01] MEDS: MELATONIN 5 MG TABLETS PO SCH (21:39)
[2020-12-01] MEDS: MIRTAZAPINE 30 MG TABLET PO SCH (21:40)
[2020-12-02] MEDS: metFORMIN HCL 500 MG TABLET (FP) PO SCH ×2 (06:29→16:50)
[2020-12-02] MEDS: PANTOPRAZOLE 20 MG TABLET PO SCH ×2 (09:25→21:04)
[2020-12-02] MEDS: ASPIRIN 81 MG CHEWABLE TABLETS PO SCH (09:25)
[2020-12-02] MEDS: metoPROLOL SUCCINATE 25 MG TAB.SR.24H (FP) PO SCH (09:25)
[2020-12-02] MEDS: LIDOCAINE 5% TOPICAL PATCH TP SCH (09:26)
[2020-12-02] MEDS: PRENATAL VITAMINS W/ FOLIC ACID TABLET (FP) PO SCH (09:26)
[2020-12-02] MEDS: FOLIC ACID 1 MG TABLET (FP) PO SCH (09:26)
[2020-12-02] MEDS: NICOTINE 21 MG/24 HOURS TOPICAL PATCH TD SCH (09:26)
[2020-12-02] MEDS: OLANZapine 10 MG TABLET PO SCH ×2 (09:28→21:04)
[2020-12-02] MEDS: LIDOCAINE PATCH REMOVAL MC SCH (21:03)
[2020-12-02] MEDS: THIAMINE HCL 100 MG TABLET (FP) PO SCH (21:04)
[2020-12-02] MEDS: MIRTAZAPINE 30 MG TABLET PO SCH (21:04)
[2020-12-02] MEDS: ATORVASTATIN CA 40 MG TABLET (FP) PO SCH (21:04)
[2020-12-02] MEDS: MELATONIN 5 MG TABLETS PO SCH (21:04)
[2020-12-03] MEDS: metFORMIN HCL 500 MG TABLET (FP) PO SCH ×2 (06:24→16:42)
[2020-12-03] MEDS: ASPIRIN 81 MG CHEWABLE TABLETS PO SCH (09:26)
[2020-12-03] MEDS: PRENATAL VITAMINS W/ FOLIC ACID TABLET (FP) PO SCH (09:27)
[2020-12-03] MEDS: LIDOCAINE 5% TOPICAL PATCH TP SCH (09:27)
[2020-12-03] MEDS: OLANZapine 10 MG TABLET PO SCH ×2 (09:27→21:03)
[2020-12-03] MEDS: PANTOPRAZOLE 20 MG TABLET PO SCH ×2 (09:27→21:03)
[2020-12-03] MEDS: FOLIC ACID 1 MG TABLET (FP) PO SCH (09:27)
[2020-12-03] MEDS: metoPROLOL SUCCINATE 25 MG TAB.SR.24H (FP) PO SCH (09:28)
[2020-12-03] MEDS: NICOTINE 21 MG/24 HOURS TOPICAL PATCH TD SCH (09:28)
[2020-12-03] MEDS: THIAMINE HCL 100 MG TABLET (FP) PO SCH (21:02)
[2020-12-03] MEDS: MIRTAZAPINE 30 MG TABLET PO SCH (21:02)
[2020-12-03] MEDS: LIDOCAINE PATCH REMOVAL MC SCH (21:03)
[2020-12-03] MEDS: MELATONIN 5 MG TABLETS PO SCH (21:03)
[2020-12-03] MEDS: ATORVASTATIN CA 40 MG TABLET (FP) PO SCH (21:03)
[2020-12-04] MEDS: metFORMIN HCL 500 MG TABLET (FP) PO SCH ×2 (06:36→16:51)
[2020-12-04] MEDS: ASPIRIN 81 MG CHEWABLE TABLETS PO SCH (09:29)
[2020-12-04] MEDS: FOLIC ACID 1 MG TABLET (FP) PO SCH (09:29)
[2020-12-04] MEDS: LIDOCAINE 5% TOPICAL PATCH TP SCH (09:29)
[2020-12-04] MEDS: PANTOPRAZOLE 20 MG TABLET PO SCH ×2 (09:30→21:13)
[2020-12-04] MEDS: PRENATAL VITAMINS W/ FOLIC ACID TABLET (FP) PO SCH (09:30)
[2020-12-04] MEDS: NICOTINE 21 MG/24 HOURS TOPICAL PATCH TD SCH (09:30)
[2020-12-04] MEDS: metoPROLOL SUCCINATE 25 MG TAB.SR.24H (FP) PO SCH (09:31)
[2020-12-04] MEDS: OLANZapine 10 MG TABLET PO SCH ×2 (09:31→21:14)
[2020-12-04] MEDS: LIDOCAINE PATCH REMOVAL MC SCH (21:13)
[2020-12-04] MEDS: MIRTAZAPINE 30 MG TABLET PO SCH (21:13)
[2020-12-04] MEDS: ATORVASTATIN CA 40 MG TABLET (FP) PO SCH (21:13)
[2020-12-04] MEDS: THIAMINE HCL 100 MG TABLET (FP) PO SCH (21:13)
[2020-12-04] MEDS: MELATONIN 5 MG TABLETS PO SCH (21:14)
[2020-12-05] MEDS: metFORMIN HCL 500 MG TABLET (FP) PO SCH ×2 (06:38→17:05)
[2020-12-05] MEDS: FOLIC ACID 1 MG TABLET (FP) PO SCH (09:34)
[2020-12-05] MEDS: PANTOPRAZOLE 20 MG TABLET PO SCH ×2 (09:34→21:50)
[2020-12-05] MEDS: metoPROLOL SUCCINATE 25 MG TAB.SR.24H (FP) PO SCH (09:34)
[2020-12-05] MEDS: PRENATAL VITAMINS W/ FOLIC ACID TABLET (FP) PO SCH (09:34)
[2020-12-05] MEDS: LIDOCAINE 5% TOPICAL PATCH TP SCH (09:34)
[2020-12-05] MEDS: ASPIRIN 81 MG CHEWABLE TABLETS PO SCH (09:34)
[2020-12-05] MEDS: NICOTINE 21 MG/24 HOURS TOPICAL PATCH TD SCH (09:35)
[2020-12-05] MEDS: OLANZapine 10 MG TABLET PO SCH ×2 (09:55→21:51)
[2020-12-05] MEDS: MELATONIN 5 MG TABLETS PO SCH (21:50)
[2020-12-05] MEDS: LIDOCAINE PATCH REMOVAL MC SCH (21:50)
[2020-12-05] MEDS: THIAMINE HCL 100 MG TABLET (FP) PO SCH (21:50)
[2020-12-05] MEDS: MIRTAZAPINE 30 MG TABLET PO SCH (21:50)
[2020-12-05] MEDS: ATORVASTATIN CA 40 MG TABLET (FP) PO SCH (21:50)
[2020-12-06] MEDS: metFORMIN HCL 500 MG TABLET (FP) PO SCH ×2 (06:19→16:51)
[2020-12-06] MEDS ORDERED: MASKS NR ONE (06:22)
[2020-12-06] MEDS: NICOTINE 21 MG/24 HOURS TOPICAL PATCH TD SCH (09:38)
[2020-12-06] MEDS: OLANZapine 10 MG TABLET PO SCH ×2 (09:38→21:07)
[2020-12-06] MEDS: ASPIRIN 81 MG CHEWABLE TABLETS PO SCH (09:38)
[2020-12-06] MEDS: PANTOPRAZOLE 20 MG TABLET PO SCH ×2 (09:38→21:07)
[2020-12-06] MEDS: metoPROLOL SUCCINATE 25 MG TAB.SR.24H (FP) PO SCH (09:38)
[2020-12-06] MEDS: PRENATAL VITAMINS W/ FOLIC ACID TABLET (FP) PO SCH (09:38)
[2020-12-06] MEDS: LIDOCAINE 5% TOPICAL PATCH TP SCH (09:38)
[2020-12-06] MEDS: FOLIC ACID 1 MG TABLET (FP) PO SCH (09:39)
[2020-12-06] MEDS: ATORVASTATIN CA 40 MG TABLET (FP) PO SCH (21:07)
[2020-12-06] MEDS: MIRTAZAPINE 30 MG TABLET PO SCH (21:07)
[2020-12-06] MEDS: MELATONIN 5 MG TABLETS PO SCH (21:08)
[2020-12-06] MEDS: LIDOCAINE PATCH REMOVAL MC SCH (21:08)
[2020-12-06] MEDS: THIAMINE HCL 100 MG TABLET (FP) PO SCH (21:08)
[2020-12-07] MEDS: metFORMIN HCL 500 MG TABLET (FP) PO SCH ×2 (06:42→16:16)
[2020-12-07] MEDS: PRENATAL VITAMINS W/ FOLIC ACID TABLET (FP) PO SCH (09:27)
[2020-12-07] MEDS: metoPROLOL SUCCINATE 25 MG TAB.SR.24H (FP) PO SCH (09:28)
[2020-12-07] MEDS: ASPIRIN 81 MG CHEWABLE TABLETS PO SCH (09:28)
[2020-12-07] MEDS: PANTOPRAZOLE 20 MG TABLET PO SCH ×2 (09:28→21:04)
[2020-12-07] MEDS: OLANZapine 10 MG TABLET PO SCH ×2 (09:28→21:04)
[2020-12-07] MEDS: NICOTINE 21 MG/24 HOURS TOPICAL PATCH TD SCH (09:28)
[2020-12-07] MEDS: LIDOCAINE 5% TOPICAL PATCH TP SCH (09:28)
[2020-12-07] MEDS: FOLIC ACID 1 MG TABLET (FP) PO SCH (09:29)
[2020-12-07] MEDS: ATORVASTATIN CA 40 MG TABLET (FP) PO SCH (21:03)
[2020-12-07] MEDS: THIAMINE HCL 100 MG TABLET (FP) PO SCH (21:03)
[2020-12-07] MEDS: MIRTAZAPINE 30 MG TABLET PO SCH (21:04)
[2020-12-07] MEDS: LIDOCAINE PATCH REMOVAL MC SCH (21:04)
[2020-12-07] MEDS: MELATONIN 5 MG TABLETS PO SCH (21:04)
[2020-12-08] MEDS: metFORMIN HCL 500 MG TABLET (FP) PO SCH ×2 (06:04→16:29)
[2020-12-08] MEDS: OLANZapine 10 MG TABLET PO SCH ×2 (09:44→22:23)
[2020-12-08] MEDS: PANTOPRAZOLE 20 MG TABLET PO SCH ×2 (09:44→22:22)
[2020-12-08] MEDS: metoPROLOL SUCCINATE 25 MG TAB.SR.24H (FP) PO SCH (09:44)
[2020-12-08] MEDS: FOLIC ACID 1 MG TABLET (FP) PO SCH (09:44)
[2020-12-08] MEDS: ASPIRIN 81 MG CHEWABLE TABLETS PO SCH (09:44)
[2020-12-08] MEDS: PRENATAL VITAMINS W/ FOLIC ACID TABLET (FP) PO SCH (09:44)
[2020-12-08] MEDS: NICOTINE 21 MG/24 HOURS TOPICAL PATCH TD SCH (09:45)
[2020-12-08] MEDS: LIDOCAINE 5% TOPICAL PATCH TP SCH (09:46)
[2020-12-08] MEDS: THIAMINE HCL 100 MG TABLET (FP) PO SCH (22:22)
[2020-12-08] MEDS: ATORVASTATIN CA 40 MG TABLET (FP) PO SCH (22:22)
[2020-12-08] MEDS: MIRTAZAPINE 30 MG TABLET PO SCH (22:22)
[2020-12-08] MEDS: MELATONIN 5 MG TABLETS PO SCH (22:22)
[2020-12-08] MEDS: LIDOCAINE PATCH REMOVAL MC SCH (22:23)
[2020-12-09] MEDS: metFORMIN HCL 500 MG TABLET (FP) PO SCH ×2 (06:43→16:56)
[2020-12-09] MEDS: PRENATAL VITAMINS W/ FOLIC ACID TABLET (FP) PO SCH (09:50)
[2020-12-09] MEDS: FOLIC ACID 1 MG TABLET (FP) PO SCH (09:50)
[2020-12-09] MEDS: OLANZapine 10 MG TABLET PO SCH ×2 (09:50→21:04)
[2020-12-09] MEDS: NICOTINE 21 MG/24 HOURS TOPICAL PATCH TD SCH (09:50)
[2020-12-09] MEDS: PANTOPRAZOLE 20 MG TABLET PO SCH ×2 (09:50→21:05)
[2020-12-09] MEDS: metoPROLOL SUCCINATE 25 MG TAB.SR.24H (FP) PO SCH (09:50)
[2020-12-09] MEDS: LIDOCAINE 5% TOPICAL PATCH TP SCH (09:50)
[2020-12-09] MEDS: ASPIRIN 81 MG CHEWABLE TABLETS PO SCH (11:41)
[2020-12-09] MEDS: MIRTAZAPINE 30 MG TABLET PO SCH (21:04)
[2020-12-09] MEDS: THIAMINE HCL 100 MG TABLET (FP) PO SCH (21:05)
[2020-12-09] MEDS: LIDOCAINE PATCH REMOVAL MC SCH (21:05)
[2020-12-09] MEDS: MELATONIN 5 MG TABLETS PO SCH (21:05)
[2020-12-09] MEDS: ATORVASTATIN CA 40 MG TABLET (FP) PO SCH (21:05)
[2020-12-10] MEDS: metFORMIN HCL 500 MG TABLET (FP) PO SCH (06:26)
[2020-12-10 07:00] VITALS: TEMP 96.9
[2020-12-10 08:45] VITALS: BP 167/82; PULSE 84
[2020-12-10] MEDS: LIDOCAINE 5% TOPICAL PATCH TP SCH (09:46)
[2020-12-10] MEDS: FOLIC ACID 1 MG TABLET (FP) PO SCH (09:46)
[2020-12-10] MEDS: PANTOPRAZOLE 20 MG TABLET PO SCH (09:46)
[2020-12-10] MEDS: OLANZapine 10 MG TABLET PO SCH (09:46)
[2020-12-10] MEDS: ASPIRIN 81 MG CHEWABLE TABLETS PO SCH (09:46)
[2020-12-10] MEDS: PRENATAL VITAMINS W/ FOLIC ACID TABLET (FP) PO SCH (09:46)
[2020-12-10] MEDS: NICOTINE 21 MG/24 HOURS TOPICAL PATCH TD SCH (09:47)
[2020-12-10] MEDS: metoPROLOL SUCCINATE 25 MG TAB.SR.24H (FP) PO SCH (09:48)
== END 2020-12-10 09:50 | disposition home or self-care (01) | DRG 772 ==
LOC: YASAS 17:26 → Y5N 18:03
PROVIDERS: ADMIT Allergy & Immunology; ATTEND Allergy & Immunology
PROC: HZ42ZZZ Group Counseling for Substance Abuse Treatment, Cognitive-Behavioral (ICD-10-PCS; principal; 2020-11-26)
DX: F11.20 Opioid dependence, uncomplicated (principal); F10.20 Alcohol dependence, uncomplicated; F14.20 Cocaine dependence, uncomplicated; F12.20 Cannabis dependence, uncomplicated; F17.210 Nicotine dependence, cigarettes, uncomplicated; F25.9 Schizoaffective disorder, unspecified; F19.282 Other psychoactive substance dependence with psychoactive substance-induced sleep disorder; I25.10 Atherosclerotic heart disease of native coronary artery without angina pectoris; I10 Essential (primary) hypertension; I42.2 Other hypertrophic cardiomyopathy; R01.1 Cardiac murmur, unspecified; I25.2 Old myocardial infarction; D75.A Glucose-6-phosphate dehydrogenase (G6PD) deficiency without anemia; E11.9 Type 2 diabetes mellitus without complications; J45.909 Unspecified asthma, uncomplicated; M19.90 Unspecified osteoarthritis, unspecified site; Z96.642 Presence of left artificial hip joint; Q98.4 Klinefelter syndrome, unspecified; Z99.89 Dependence on other enabling machines and devices; Z79.84 Long term (current) use of oral hypoglycemic drugs; Z56.0 Unemployment, unspecified; Z88.8 Allergy status to other drugs, medicaments and biological substances; Z91.030 Bee allergy status
CPT/HCPCS: 82962; C9803; U0003

== ENCOUNTER 2021-07-29 10:20 | Inpatient (IN) | payer OTHER ==
[2021-07-29 11:08] VITALS: BMI 28.2
[2021-07-29] MEDS ORDERED: NICOTINE 10 MG CARTRIDGE (INHALER) IH PRN (11:40)
[2021-07-29] MEDS ORDERED: MENTHOL/PHENOL 1 EACH UD MM PRN (11:40)
[2021-07-29] MEDS ORDERED: IBUPROFEN 400 MG TABLET (FP) PO PRN (11:40)
[2021-07-29] MEDS ORDERED: MAGNESIUM CITRATE 300 ML BOTTLE PO PRN (11:40)
[2021-07-29] MEDS ORDERED: MAG HYDROX/AL HYDROX/SIMETH 30 ML UNIT-DOSE CUP PO PRN (11:40)
[2021-07-29] MEDS ORDERED: ACETAMINOPHEN 325 MG TABLET (FP) PO PRN ×2 (11:40)
[2021-07-29] MEDS ORDERED: diazePAM 5 MG TABLET PO PRN (11:40)
[2021-07-29] MEDS ORDERED: ONDANSETRON *ODT* 4 MG TABLET SL PRN (11:40)
[2021-07-29] MEDS ORDERED: MAGNESIUM HYDROX 2400MG/30ML ORAL SUSPENSION 30 ML CUP PO PRN (11:40)
[2021-07-29] MEDS ORDERED: METHOCARBAMOL 500 MG TABLET PO PRN (11:40)
[2021-07-29] MEDS ORDERED: BISMUTH SUBSALICYLATE 524 MG/30 ML PO PRN (11:40)
[2021-07-29 15:08] LABS: HEMATOCRIT 38.7 % (35.4-49); MCH 33.4 pg (25.7-33.7); MCHC 33.5 g/dl (32.0-35.9); MEAN CELL VOLUME 99.5 fl (80-96); MEAN PLT VOLUME 8.7 fl (7.5-11.1); PLATELET COUNT 155 10^3/uL (134-434); RDW 15.3 % (11.9-15.9); WHITE BLOOD COUNT 5.9 K/mm3 (4.0-10.0)
[2021-07-29] MEDS: PRENATAL VITAMINS W/ FOLIC ACID TABLET (FP) PO SCH (15:41)
[2021-07-29] MEDS: NICOTINE 21 MG/24 HOURS TOPICAL PATCH TD SCH (15:41)
[2021-07-29] MEDS: ASPIRIN 81 MG CHEWABLE TABLETS PO SCH (15:41)
[2021-07-29] MEDS: hydrOXYzine PAMOATE 25 MG CAPSULE (FP) PO SCH ×3 (15:42→22:56)
[2021-07-29 15:56] LABS: ALBUMIN 3.5 g/dl (3.4-5.0); BLOOD UREA NITROGEN 8.8 mg/dL (7-18)
[2021-07-29 15:58] LABS: BILIRUBIN,TOTAL 0.6 mg/dL (0.2-1); TOT PROT 6.6 g/dl (6.4-8.2)
[2021-07-29 15:59] LABS: CALCIUM 8.7 mg/dL (8.5-10.1)
[2021-07-29] MEDS: diazePAM 5 MG TABLET PO SCH ×2 (17:21→22:57)
[2021-07-29] MEDS: metFORMIN HCL 500 MG TABLET (FP) PO SCH (17:21)
[2021-07-29] MEDS: MIRTAZAPINE 15 MG TABLET (FP) PO SCH (22:56)
[2021-07-29] MEDS: ATORVASTATIN CA 40 MG TABLET (FP) PO SCH (22:56)
[2021-07-29] MEDS: OLANZapine 10 MG TABLET PO SCH (22:56)
[2021-07-29] MEDS: MELATONIN 5 MG TABLETS PO SCH (22:56)
[2021-07-29] MEDS: PANTOPRAZOLE 20 MG TABLET PO SCH (22:56)
[2021-07-29] MEDS: THIAMINE HCL 100 MG TABLET (FP) PO SCH (22:57)
[2021-07-30] MEDS: hydrOXYzine PAMOATE 25 MG CAPSULE (FP) PO SCH ×5 (06:06→23:10)
[2021-07-30] MEDS: diazePAM 5 MG TABLET PO SCH ×4 (06:07→22:50)
[2021-07-30] MEDS: metFORMIN HCL 500 MG TABLET (FP) PO SCH ×2 (07:42→16:30)
[2021-07-30] MEDS: metoPROLOL SUCCINATE 25 MG TAB.SR.24H (FP) PO SCH (10:38)
[2021-07-30] MEDS: ASPIRIN 81 MG CHEWABLE TABLETS PO SCH (10:38)
[2021-07-30] MEDS: PANTOPRAZOLE 20 MG TABLET PO SCH ×2 (10:38→22:49)
[2021-07-30] MEDS: OLANZapine 10 MG TABLET PO SCH ×2 (10:38→22:49)
[2021-07-30] MEDS: NICOTINE 21 MG/24 HOURS TOPICAL PATCH TD SCH (10:39)
[2021-07-30] MEDS: PRENATAL VITAMINS W/ FOLIC ACID TABLET (FP) PO SCH (10:39)
[2021-07-30 11:23] LABS: HIV INTERPRETATION NEGATIVE (NEGATIVE)
[2021-07-30] MEDS: MELATONIN 5 MG TABLETS PO SCH (22:49)
[2021-07-30] MEDS: MIRTAZAPINE 15 MG TABLET (FP) PO SCH (22:49)
[2021-07-30] MEDS: THIAMINE HCL 100 MG TABLET (FP) PO SCH (22:49)
[2021-07-30] MEDS: ATORVASTATIN CA 40 MG TABLET (FP) PO SCH (22:50)
[2021-07-31] MEDS: diazePAM 5 MG TABLET PO SCH ×3 (06:03→23:19)
[2021-07-31] MEDS: hydrOXYzine PAMOATE 25 MG CAPSULE (FP) PO SCH ×5 (06:03→23:05)
[2021-07-31] MEDS: metFORMIN HCL 500 MG TABLET (FP) PO SCH ×2 (06:11→18:38)
[2021-07-31] MEDS: PANTOPRAZOLE 20 MG TABLET PO SCH ×2 (10:46→23:17)
[2021-07-31] MEDS: ASPIRIN 81 MG CHEWABLE TABLETS PO SCH (10:46)
[2021-07-31] MEDS: OLANZapine 10 MG TABLET PO SCH ×2 (10:47→23:18)
[2021-07-31] MEDS: PRENATAL VITAMINS W/ FOLIC ACID TABLET (FP) PO SCH (10:49)
[2021-07-31] MEDS: metoPROLOL SUCCINATE 25 MG TAB.SR.24H (FP) PO SCH (10:49)
[2021-07-31] MEDS: NICOTINE 21 MG/24 HOURS TOPICAL PATCH TD SCH (10:50)
[2021-07-31] MEDS: MELATONIN 5 MG TABLETS PO SCH (23:14)
[2021-07-31] MEDS: THIAMINE HCL 100 MG TABLET (FP) PO SCH (23:14)
[2021-07-31] MEDS: MIRTAZAPINE 15 MG TABLET (FP) PO SCH (23:18)
[2021-07-31] MEDS: ATORVASTATIN CA 40 MG TABLET (FP) PO SCH (23:19)
[2021-08-01] MEDS: diazePAM 5 MG TABLET PO SCH ×2 (06:01→17:59)
[2021-08-01] MEDS: hydrOXYzine PAMOATE 25 MG CAPSULE (FP) PO SCH ×4 (06:01→18:00)
[2021-08-01] MEDS: metFORMIN HCL 500 MG TABLET (FP) PO SCH ×2 (06:18→17:59)
[2021-08-01] MEDS ORDERED: INSULIN SLIDING SCALE (NOVOLOG) 1 VIAL SQ ONE (06:59)
[2021-08-01] MEDS: metoPROLOL SUCCINATE 25 MG TAB.SR.24H (FP) PO SCH (10:35)
[2021-08-01] MEDS: PANTOPRAZOLE 20 MG TABLET PO SCH (10:36)
[2021-08-01] MEDS: OLANZapine 10 MG TABLET PO SCH (10:36)
[2021-08-01] MEDS: PRENATAL VITAMINS W/ FOLIC ACID TABLET (FP) PO SCH (10:36)
[2021-08-01] MEDS: NICOTINE 21 MG/24 HOURS TOPICAL PATCH TD SCH (10:36)
[2021-08-01] MEDS: ASPIRIN 81 MG CHEWABLE TABLETS PO SCH (10:36)
[2021-08-01 17:18] VITALS: BP 140/71; PULSE 72; TEMP 97.2
[2021-08-02] MEDS ORDERED: diazePAM 5 MG TABLET PO ONE (06:00)
== END 2021-08-01 19:08 | disposition other institution (70) | DRG 774 ==
LOC: YASAS 10:20 → Y3N 13:52
PROVIDERS: ADMIT Allergy & Immunology; ATTEND Allergy & Immunology
PROC: HZ2ZZZZ Detoxification Services for Substance Abuse Treatment (ICD-10-PCS; principal; 2021-07-29)
DX: F10.230 Alcohol dependence with withdrawal, uncomplicated (principal); F14.20 Cocaine dependence, uncomplicated; F12.20 Cannabis dependence, uncomplicated; F17.210 Nicotine dependence, cigarettes, uncomplicated; F25.9 Schizoaffective disorder, unspecified; F19.280 Other psychoactive substance dependence with psychoactive substance-induced anxiety disorder; F19.282 Other psychoactive substance dependence with psychoactive substance-induced sleep disorder; F19.24 Other psychoactive substance dependence with psychoactive substance-induced mood disorder; D75.A Glucose-6-phosphate dehydrogenase (G6PD) deficiency without anemia; E11.9 Type 2 diabetes mellitus without complications; Z79.84 Long term (current) use of oral hypoglycemic drugs; I10 Essential (primary) hypertension; I42.2 Other hypertrophic cardiomyopathy; I25.2 Old myocardial infarction; J45.909 Unspecified asthma, uncomplicated; Z96.641 Presence of right artificial hip joint; Z62.810 Personal history of physical and sexual abuse in childhood; Q98.4 Klinefelter syndrome, unspecified; Z99.89 Dependence on other enabling machines and devices; Z98.890 Other specified postprocedural states
CPT/HCPCS: 36415; 80053; 82962; 85027; 86780; 87389; C9803; U0003; U0005

== ENCOUNTER 2021-08-01 19:23 | Inpatient (IN) | payer OTHER ==
[2021-08-01] MEDS ORDERED: MELATONIN 5 MG TABLETS PO SCH (22:00)
[2021-08-01] MEDS ORDERED: IBUPROFEN 400 MG TABLET (FP) PO PRN (22:25)
[2021-08-01] MEDS ORDERED: ACETAMINOPHEN 325 MG TABLET (FP) PO PRN (22:25)
[2021-08-01] MEDS ORDERED: MENTHOL/PHENOL 1 EACH UD MM PRN (22:25)
[2021-08-01] MEDS ORDERED: MAGNESIUM HYDROX 2400MG/30ML ORAL SUSPENSION 30 ML CUP PO PRN (22:25)
[2021-08-01] MEDS ORDERED: MAGNESIUM CITRATE 300 ML BOTTLE PO PRN (22:25)
[2021-08-01] MEDS ORDERED: P-EPHED 60MG/TRIPROLIDI 2.5MG TABLET PO PRN (22:25)
[2021-08-01] MEDS ORDERED: guaiFENesin 200 MG/10 ML 10 ML UNIT-DOSE CUPS PO PRN (22:25)
[2021-08-01] MEDS ORDERED: NICOTINE 10 MG CARTRIDGE (INHALER) IH PRN (22:25)
[2021-08-01] MEDS ORDERED: MAG HYDROX/AL HYDROX/SIMETH 30 ML UNIT-DOSE CUP PO PRN (22:25)
[2021-08-01] MEDS ORDERED: NICOTINE POLACRILEX 2 MG GUM BUC PRN (22:25)
[2021-08-01] MEDS ORDERED: LOPERAMIDE HCL 2 MG CAPSULE PO PRN (22:25)
[2021-08-02] MEDS: metFORMIN HCL 500 MG TABLET (FP) PO SCH (06:32)
[2021-08-02] MEDS ORDERED: FOLIC ACID 1 MG TABLET (FP) PO SCH (10:00)
[2021-08-02] MEDS: metoPROLOL SUCCINATE 25 MG TAB.SR.24H (FP) PO SCH (10:16)
[2021-08-02] MEDS: PANTOPRAZOLE 20 MG TABLET PO SCH ×2 (10:16→21:25)
[2021-08-02] MEDS: PRENATAL VITAMINS W/ FOLIC ACID TABLET (FP) PO SCH (10:16)
[2021-08-02] MEDS: ASPIRIN 81 MG CHEWABLE TABLETS PO SCH (10:16)
[2021-08-02] MEDS: NICOTINE 21 MG/24 HOURS TOPICAL PATCH TD SCH (12:11)
[2021-08-02] MEDS: OLANZapine 10 MG TABLET PO SCH ×2 (12:11→21:25)
[2021-08-02] MEDS: THIAMINE HCL 100 MG TABLET (FP) PO SCH (21:25)
[2021-08-02] MEDS: ATORVASTATIN CA 40 MG TABLET (FP) PO SCH (21:25)
[2021-08-02] MEDS: MIRTAZAPINE 15 MG TABLET (FP) PO SCH (21:25)
[2021-08-03] MEDS: metFORMIN HCL 500 MG TABLET (FP) PO SCH (06:38)
[2021-08-03] MEDS: metoPROLOL SUCCINATE 25 MG TAB.SR.24H (FP) PO SCH (09:48)
[2021-08-03] MEDS: PRENATAL VITAMINS W/ FOLIC ACID TABLET (FP) PO SCH (09:48)
[2021-08-03] MEDS: ASPIRIN 81 MG CHEWABLE TABLETS PO SCH (09:48)
[2021-08-03] MEDS: OLANZapine 10 MG TABLET PO SCH ×2 (09:49→21:18)
[2021-08-03] MEDS: PANTOPRAZOLE 20 MG TABLET PO SCH ×2 (09:49→21:18)
[2021-08-03] MEDS: NICOTINE 21 MG/24 HOURS TOPICAL PATCH TD SCH (09:49)
[2021-08-03] MEDS: THIAMINE HCL 100 MG TABLET (FP) PO SCH (21:17)
[2021-08-03] MEDS: ATORVASTATIN CA 40 MG TABLET (FP) PO SCH (21:19)
[2021-08-03] MEDS: MIRTAZAPINE 15 MG TABLET (FP) PO SCH (21:19)
[2021-08-04] MEDS: metFORMIN HCL 500 MG TABLET (FP) PO SCH (06:43)
[2021-08-04] MEDS: PANTOPRAZOLE 20 MG TABLET PO SCH ×2 (10:33→21:19)
[2021-08-04] MEDS: ASPIRIN 81 MG CHEWABLE TABLETS PO SCH (10:33)
[2021-08-04] MEDS: metoPROLOL SUCCINATE 25 MG TAB.SR.24H (FP) PO SCH (10:33)
[2021-08-04] MEDS: PRENATAL VITAMINS W/ FOLIC ACID TABLET (FP) PO SCH (10:33)
[2021-08-04] MEDS: NICOTINE 21 MG/24 HOURS TOPICAL PATCH TD SCH (10:34)
[2021-08-04] MEDS: OLANZapine 10 MG TABLET PO SCH ×2 (10:34→21:19)
[2021-08-04] MEDS: MIRTAZAPINE 15 MG TABLET (FP) PO SCH (21:19)
[2021-08-04] MEDS: ATORVASTATIN CA 40 MG TABLET (FP) PO SCH (21:19)
[2021-08-04] MEDS: THIAMINE HCL 100 MG TABLET (FP) PO SCH (21:19)
[2021-08-05] MEDS: metFORMIN HCL 500 MG TABLET (FP) PO SCH (06:27)
[2021-08-05 06:55] VITALS: TEMP 97.5
[2021-08-05] MEDS: NICOTINE 21 MG/24 HOURS TOPICAL PATCH TD SCH (09:13)
[2021-08-05] MEDS: metoPROLOL SUCCINATE 25 MG TAB.SR.24H (FP) PO SCH (09:13)
[2021-08-05] MEDS: ASPIRIN 81 MG CHEWABLE TABLETS PO SCH (09:13)
[2021-08-05] MEDS: PANTOPRAZOLE 20 MG TABLET PO SCH (09:13)
[2021-08-05] MEDS: OLANZapine 10 MG TABLET PO SCH (09:14)
[2021-08-05] MEDS: PRENATAL VITAMINS W/ FOLIC ACID TABLET (FP) PO SCH (09:17)
[2021-08-05 10:56] VITALS: BP 151/85; PULSE 91
== END 2021-08-05 17:55 | disposition short-term general hospital (02) | DRG 774 ==
LOC: YASAS 19:23 → Y3W 19:27
PROVIDERS: ADMIT Allergy & Immunology; ATTEND Allergy & Immunology
PROC: HZ2ZZZZ Detoxification Services for Substance Abuse Treatment (ICD-10-PCS; principal; 2021-08-01)
DX: F10.20 Alcohol dependence, uncomplicated (principal); F14.20 Cocaine dependence, uncomplicated; F12.20 Cannabis dependence, uncomplicated; F17.210 Nicotine dependence, cigarettes, uncomplicated; F19.282 Other psychoactive substance dependence with psychoactive substance-induced sleep disorder; F25.9 Schizoaffective disorder, unspecified; F31.9 Bipolar disorder, unspecified; I10 Essential (primary) hypertension; E11.9 Type 2 diabetes mellitus without complications; E78.5 Hyperlipidemia, unspecified; J44.9 Chronic obstructive pulmonary disease, unspecified; M25.562 Pain in left knee; M25.462 Effusion, left knee; Z96.642 Presence of left artificial hip joint; Q98.4 Klinefelter syndrome, unspecified; Z99.89 Dependence on other enabling machines and devices
CPT/HCPCS: 82962; C9803; U0003; U0005

== ENCOUNTER 2021-08-05 12:09 | Inpatient (IN) | payer OTHER ==
[2021-08-05 13:51] LABS: BASO % 0.7 % (0-2.0); EOS % 3.2 % (0-4.5); HEMATOCRIT 38.9 % (35.4-49); LYMPH % 27.8 % (8-40); MCH 33.3 pg (25.7-33.7); MCHC 33.4 g/dl (32.0-35.9); MEAN CELL VOLUME 99.7 fl (80-96); MEAN PLT VOLUME 8.8 fl (7.5-11.1); MONO % 11.3 % (3.8-10.2); PLATELET COUNT 140 10^3/uL (134-434); RBC 3.91 M/mm3 (4.00-5.60); RDW 14.6 % (11.9-15.9)
[2021-08-05 14:20] LABS: ALBUMIN 3.4 g/dl (3.4-5.0); CALCIUM 8.9 mg/dL (8.5-10.1)
[2021-08-05 14:21] LABS: BLOOD UREA NITROGEN 18.4 mg/dL (7-18)
[2021-08-05 14:24] LABS: CREATININE 0.9 mg/dL (0.55-1.3)
[2021-08-05 14:25] LABS: BILIRUBIN,TOTAL 0.4 mg/dL (0.2-1); TOT PROT 6.7 g/dl (6.4-8.2)
[2021-08-05] MEDS ORDERED: CEFTRIAXONE 2,000 MG in DEXTROSE 5%-WATER - 50 ML IVPB ONE (15:54)
[2021-08-05] MEDS ORDERED: VANCOMYCIN 1 GM in D5W (PRE-DOCKED) 1,000 MG/250 ML IVPB ONE (15:54)
[2021-08-05] MEDS ORDERED: VANCOMYCIN 1 GRAM (PRE-DOCKED) 1,000 MG/250 ML BAG IVPB ONE (16:00)
[2021-08-05] MEDS ORDERED: CEFTRIAXONE 2 GM/100 ML BAG IVPB ONE (16:00)
[2021-08-05 17:05] LABS: BF WBC & OTHER NUCLEATED CELLS 606 /mm3
[2021-08-05 19:00] LABS: BODY FLUID MACROPHAGES 50 %; BODY FLUID MESOTHELIAL 19 %; BODY FLUID MONOCYTE 12 %
[2021-08-05] MEDS ORDERED: MIRTAZAPINE 30 MG TABLET PO SCH (22:00)
[2021-08-05] MEDS ORDERED: OLANZapine 10 MG TABLET PO SCH (22:00)
[2021-08-05] MEDS ORDERED: ATORVASTATIN CA 40 MG TABLET (FP) PO SCH (22:00)
[2021-08-05] MEDS ORDERED: MIRTAZAPINE 15 MG TABLET (FP) ONE (22:26)
[2021-08-05] MEDS: PANTOPRAZOLE 20 MG TABLET PO SCH (22:39)
[2021-08-05] MEDS: INSULIN SLIDING SCALE (NOVOLOG) 1 VIAL SQ SCH (22:40)
[2021-08-05] MEDS: ENOXAPARIN NA (PORCINE) 40 MG/0.4 ML DISP.SYRIN SQ SCH (22:45)
[2021-08-06 00:13] VITALS: BMI 28.9
[2021-08-06] MEDS: INSULIN SLIDING SCALE (NOVOLOG) 1 VIAL SQ SCH ×2 (06:55→11:34)
[2021-08-06 08:53] LABS: BASO % 0.8 % (0-2.0); EOS % 3.7 % (0-4.5); HEMATOCRIT 36.2 % (35.4-49); HEMOGLOBIN 12.4 GM/dL (11.7-16.9); LYMPH % 27.4 % (8-40); MCH 33.5 pg (25.7-33.7); MCHC 34.3 g/dl (32.0-35.9); MEAN CELL VOLUME 97.6 fl (80-96); MEAN PLT VOLUME 8.3 fl (7.5-11.1); MONO % 11.6 % (3.8-10.2); NEUT % 56.5 % (42.8-82.8); PLATELET COUNT 133 10^3/uL (134-434); RBC 3.71 M/mm3 (4.00-5.60); RDW 14.6 % (11.9-15.9); WHITE BLOOD COUNT 3.8 K/mm3 (4.0-10.0)
[2021-08-06 09:18] LABS: BLOOD UREA NITROGEN 15.7 mg/dL (7-18); CALCIUM 8.5 mg/dL (8.5-10.1); MAGNESIUM 1.9 mg/dL (1.8-2.4)
[2021-08-06 09:19] LABS: PHOSPHOROUS 4.8 mg/dL (2.5-4.9)
[2021-08-06 09:21] LABS: BILIRUBIN,TOTAL 0.4 mg/dL (0.2-1); CREATININE 0.8 mg/dL (0.55-1.3); TOT PROT 6.2 g/dl (6.4-8.2)
[2021-08-06] MEDS ORDERED: DEXTROSE 5%-WATER 100 ML IVPB ONE (09:33)
[2021-08-06] MEDS: PANTOPRAZOLE 20 MG TABLET PO SCH (09:41)
[2021-08-06] MEDS: ENOXAPARIN NA (PORCINE) 40 MG/0.4 ML DISP.SYRIN SQ SCH (09:42)
[2021-08-06] MEDS ORDERED: CEFTRIAXONE 2 GM in DEXTROSE 5%-WATER 100 ML IVPB SCH (10:00)
[2021-08-06] MEDS ORDERED: OLANZapine 10 MG TABLET PO SCH (10:00)
[2021-08-06] MEDS ORDERED: FOLIC ACID 1 MG TABLET (FP) PO SCH (10:00)
[2021-08-06] MEDS ORDERED: ASPIRIN 81 MG CHEWABLE TABLETS PO SCH (10:00)
[2021-08-06] MEDS ORDERED: THIAMINE HCL 100 MG TABLET (FP) PO SCH (10:00)
[2021-08-06 11:18] LABS: URIC ACID 5.1 mg/dL (2.6-7.2)
[2021-08-06] MEDS ORDERED: guaiFENesin 200 MG/10 ML 10 ML UNIT-DOSE CUPS PO PRN (13:13)
[2021-08-06 14:57] VITALS: BP 121/67; PULSE 86; TEMP 97.7
[2021-08-07 17:07] LABS: BODY FLUID ALBUMIN 1.9 g/dL (Not Estab.)
== END 2021-08-06 17:35 | disposition short-term general hospital (02) | DRG 351 ==
LOC: JER 12:09 → JERBED 16:01 → J6S 21:01
PROVIDERS: ADMIT Family Medicine
PROC: 0S9D3ZX Drainage of Left Knee Joint, Percutaneous Approach, Diagnostic (ICD-10-PCS; principal; 2021-08-05)
DX: M25.462 Effusion, left knee (principal); E11.9 Type 2 diabetes mellitus without complications; I10 Essential (primary) hypertension; E78.5 Hyperlipidemia, unspecified; M06.9 Rheumatoid arthritis, unspecified; F25.9 Schizoaffective disorder, unspecified; Q98.4 Klinefelter syndrome, unspecified; J45.909 Unspecified asthma, uncomplicated; D75.A Glucose-6-phosphate dehydrogenase (G6PD) deficiency without anemia; F19.10 Other psychoactive substance abuse, uncomplicated
CPT/HCPCS: 36415; 71046-TC-FY; 73564-TC-LT-FY; 80053; 82042; 82550; 82945; 82962; 83036; 83735; 83880; 84100; 84484; 84550; 85025; 87070; 87075; 87205; 89060; 93005; 93010; 97116-GP; 97162-GP; 99285-25; C9803; U0003; U0005

== ENCOUNTER 2021-08-06 17:12 | Inpatient (IN) | payer OTHER ==
[2021-08-06 17:40] VITALS: BMI 28.8
[2021-08-06] MEDS ORDERED: LOPERAMIDE HCL 2 MG CAPSULE PO PRN (17:47)
[2021-08-06] MEDS ORDERED: MAGNESIUM HYDROX 2400MG/30ML ORAL SUSPENSION 30 ML CUP PO PRN (17:47)
[2021-08-06] MEDS ORDERED: P-EPHED 60MG/TRIPROLIDI 2.5MG TABLET PO PRN (17:47)
[2021-08-06] MEDS ORDERED: guaiFENesin 200 MG/10 ML 10 ML UNIT-DOSE CUPS PO PRN (17:47)
[2021-08-06] MEDS ORDERED: MAG HYDROX/AL HYDROX/SIMETH 30 ML UNIT-DOSE CUP PO PRN (17:47)
[2021-08-06] MEDS ORDERED: MENTHOL/PHENOL 1 EACH UD MM PRN (17:47)
[2021-08-06] MEDS ORDERED: MAGNESIUM CITRATE 300 ML BOTTLE PO PRN (17:47)
[2021-08-06] MEDS ORDERED: NICOTINE POLACRILEX 2 MG GUM BUC PRN (17:47)
[2021-08-06] MEDS ORDERED: ACETAMINOPHEN 325 MG TABLET (FP) PO PRN (17:47)
[2021-08-06] MEDS: MELATONIN 5 MG TABLETS PO SCH (21:06)
[2021-08-06] MEDS: THIAMINE HCL 100 MG TABLET (FP) PO SCH (21:06)
[2021-08-06] MEDS: PANTOPRAZOLE 20 MG TABLET PO SCH (21:07)
[2021-08-06] MEDS: ATORVASTATIN CA 40 MG TABLET (FP) PO SCH (21:07)
[2021-08-06] MEDS: IBUPROFEN 400 MG TABLET (FP) PO PRN (21:07)
[2021-08-07] MEDS: metFORMIN HCL 500 MG TABLET (FP) PO SCH (06:22)
[2021-08-07] MEDS: metoPROLOL SUCCINATE 25 MG TAB.SR.24H (FP) PO SCH (09:32)
[2021-08-07] MEDS: ASPIRIN 81 MG CHEWABLE TABLETS PO SCH (09:32)
[2021-08-07] MEDS: PANTOPRAZOLE 20 MG TABLET PO SCH ×2 (09:32→21:17)
[2021-08-07] MEDS: PRENATAL VITAMINS W/ FOLIC ACID TABLET (FP) PO SCH (09:32)
[2021-08-07] MEDS: IBUPROFEN 400 MG TABLET (FP) PO PRN ×2 (09:33→21:20)
[2021-08-07] MEDS: OLANZapine 10 MG TABLET PO SCH ×2 (10:27→21:21)
[2021-08-07] MEDS: NICOTINE 21 MG/24 HOURS TOPICAL PATCH TD SCH (12:01)
[2021-08-07] MEDS: ATORVASTATIN CA 40 MG TABLET (FP) PO SCH (21:17)
[2021-08-07] MEDS: THIAMINE HCL 100 MG TABLET (FP) PO SCH (21:17)
[2021-08-07] MEDS: MELATONIN 5 MG TABLETS PO SCH (21:18)
[2021-08-07] MEDS: MIRTAZAPINE 30 MG TABLET PO SCH (21:22)
[2021-08-08] MEDS: metFORMIN HCL 500 MG TABLET (FP) PO SCH (06:28)
[2021-08-08] MEDS: IBUPROFEN 400 MG TABLET (FP) PO PRN ×2 (06:28→15:41)
[2021-08-08] MEDS: ASPIRIN 81 MG CHEWABLE TABLETS PO SCH (10:21)
[2021-08-08] MEDS: metoPROLOL SUCCINATE 25 MG TAB.SR.24H (FP) PO SCH (10:21)
[2021-08-08] MEDS: PRENATAL VITAMINS W/ FOLIC ACID TABLET (FP) PO SCH (10:21)
[2021-08-08] MEDS: OLANZapine 10 MG TABLET PO SCH ×2 (10:21→21:49)
[2021-08-08] MEDS: NICOTINE 21 MG/24 HOURS TOPICAL PATCH TD SCH (10:21)
[2021-08-08] MEDS: PANTOPRAZOLE 20 MG TABLET PO SCH ×2 (10:21→21:49)
[2021-08-08] MEDS: MELATONIN 5 MG TABLETS PO SCH (21:48)
[2021-08-08] MEDS: THIAMINE HCL 100 MG TABLET (FP) PO SCH (21:48)
[2021-08-08] MEDS: MIRTAZAPINE 30 MG TABLET PO SCH (21:49)
[2021-08-08] MEDS: ATORVASTATIN CA 40 MG TABLET (FP) PO SCH (21:49)
[2021-08-09] MEDS: IBUPROFEN 400 MG TABLET (FP) PO PRN ×2 (06:29→21:12)
[2021-08-09] MEDS: metFORMIN HCL 500 MG TABLET (FP) PO SCH (06:29)
[2021-08-09] MEDS: ASPIRIN 81 MG CHEWABLE TABLETS PO SCH (10:05)
[2021-08-09] MEDS: PRENATAL VITAMINS W/ FOLIC ACID TABLET (FP) PO SCH (10:05)
[2021-08-09] MEDS: NICOTINE 21 MG/24 HOURS TOPICAL PATCH TD SCH (10:05)
[2021-08-09] MEDS: OLANZapine 10 MG TABLET PO SCH ×2 (10:05→21:12)
[2021-08-09] MEDS: PANTOPRAZOLE 20 MG TABLET PO SCH ×2 (10:05→21:12)
[2021-08-09] MEDS: metoPROLOL SUCCINATE 25 MG TAB.SR.24H (FP) PO SCH (10:05)
[2021-08-09] MEDS: MELATONIN 5 MG TABLETS PO SCH (21:11)
[2021-08-09] MEDS: THIAMINE HCL 100 MG TABLET (FP) PO SCH (21:11)
[2021-08-09] MEDS: ATORVASTATIN CA 40 MG TABLET (FP) PO SCH (21:12)
[2021-08-09] MEDS: MIRTAZAPINE 30 MG TABLET PO SCH (21:12)
[2021-08-10] MEDS: metFORMIN HCL 500 MG TABLET (FP) PO SCH (06:18)
[2021-08-10] MEDS: IBUPROFEN 400 MG TABLET (FP) PO PRN ×2 (06:18→21:30)
[2021-08-10] MEDS: ASPIRIN 81 MG CHEWABLE TABLETS PO SCH (10:03)
[2021-08-10] MEDS: metoPROLOL SUCCINATE 25 MG TAB.SR.24H (FP) PO SCH (10:03)
[2021-08-10] MEDS: PANTOPRAZOLE 20 MG TABLET PO SCH ×2 (10:03→21:29)
[2021-08-10] MEDS: NICOTINE 21 MG/24 HOURS TOPICAL PATCH TD SCH (10:03)
[2021-08-10] MEDS: PRENATAL VITAMINS W/ FOLIC ACID TABLET (FP) PO SCH (10:03)
[2021-08-10] MEDS: OLANZapine 10 MG TABLET PO SCH ×2 (10:03→21:29)
[2021-08-10] MEDS: MELATONIN 5 MG TABLETS PO SCH (21:28)
[2021-08-10] MEDS: THIAMINE HCL 100 MG TABLET (FP) PO SCH (21:28)
[2021-08-10] MEDS: MIRTAZAPINE 30 MG TABLET PO SCH (21:29)
[2021-08-10] MEDS: ATORVASTATIN CA 40 MG TABLET (FP) PO SCH (21:29)
[2021-08-11] MEDS: IBUPROFEN 400 MG TABLET (FP) PO PRN ×2 (06:33→16:47)
[2021-08-11] MEDS: metFORMIN HCL 500 MG TABLET (FP) PO SCH (06:33)
[2021-08-11] MEDS: PRENATAL VITAMINS W/ FOLIC ACID TABLET (FP) PO SCH (09:40)
[2021-08-11] MEDS: OLANZapine 10 MG TABLET PO SCH ×2 (09:40→21:08)
[2021-08-11] MEDS: PANTOPRAZOLE 20 MG TABLET PO SCH ×2 (09:40→21:08)
[2021-08-11] MEDS: metoPROLOL SUCCINATE 25 MG TAB.SR.24H (FP) PO SCH (09:40)
[2021-08-11] MEDS: ASPIRIN 81 MG CHEWABLE TABLETS PO SCH (09:41)
[2021-08-11] MEDS: NICOTINE 21 MG/24 HOURS TOPICAL PATCH TD SCH (09:41)
[2021-08-11] MEDS ORDERED: PT OWN MED DRAWER 7, Y5N ONE (10:17)
[2021-08-11] MEDS: MIRTAZAPINE 30 MG TABLET PO SCH (21:08)
[2021-08-11] MEDS: THIAMINE HCL 100 MG TABLET (FP) PO SCH (21:08)
[2021-08-11] MEDS: MELATONIN 5 MG TABLETS PO SCH (21:08)
[2021-08-11] MEDS: ATORVASTATIN CA 40 MG TABLET (FP) PO SCH (21:08)
[2021-08-12] MEDS: IBUPROFEN 400 MG TABLET (FP) PO PRN ×3 (06:42→21:55)
[2021-08-12] MEDS: metFORMIN HCL 500 MG TABLET (FP) PO SCH (06:43)
[2021-08-12] MEDS: PANTOPRAZOLE 20 MG TABLET PO SCH ×2 (10:14→21:54)
[2021-08-12] MEDS: OLANZapine 10 MG TABLET PO SCH ×2 (10:14→21:54)
[2021-08-12] MEDS: metoPROLOL SUCCINATE 25 MG TAB.SR.24H (FP) PO SCH (10:14)
[2021-08-12] MEDS: PRENATAL VITAMINS W/ FOLIC ACID TABLET (FP) PO SCH (10:14)
[2021-08-12] MEDS: ASPIRIN 81 MG CHEWABLE TABLETS PO SCH (10:14)
[2021-08-12] MEDS: NICOTINE 21 MG/24 HOURS TOPICAL PATCH TD SCH (10:14)
[2021-08-12] MEDS: MELATONIN 5 MG TABLETS PO SCH (21:54)
[2021-08-12] MEDS: MIRTAZAPINE 30 MG TABLET PO SCH (21:54)
[2021-08-12] MEDS: ATORVASTATIN CA 40 MG TABLET (FP) PO SCH (21:54)
[2021-08-12] MEDS: THIAMINE HCL 100 MG TABLET (FP) PO SCH (21:54)
[2021-08-13] MEDS: metFORMIN HCL 500 MG TABLET (FP) PO SCH (06:26)
[2021-08-13] MEDS: IBUPROFEN 400 MG TABLET (FP) PO PRN ×2 (06:26→14:49)
[2021-08-13] MEDS: PRENATAL VITAMINS W/ FOLIC ACID TABLET (FP) PO SCH (09:51)
[2021-08-13] MEDS: OLANZapine 10 MG TABLET PO SCH ×2 (09:51→21:30)
[2021-08-13] MEDS: metoPROLOL SUCCINATE 25 MG TAB.SR.24H (FP) PO SCH (09:51)
[2021-08-13] MEDS: PANTOPRAZOLE 20 MG TABLET PO SCH ×2 (09:51→21:30)
[2021-08-13] MEDS: NICOTINE 21 MG/24 HOURS TOPICAL PATCH TD SCH (09:51)
[2021-08-13] MEDS: ASPIRIN 81 MG CHEWABLE TABLETS PO SCH (09:51)
[2021-08-13] MEDS: METHYL SALICYLATE/MENTHOL OINT 30 GM TUBE TP SCH ×2 (13:32→21:31)
[2021-08-13] MEDS ORDERED: PT OWN MED DRAWER 7, Y5N ONE ×2 (16:15→20:08)
[2021-08-13] MEDS: MIRTAZAPINE 30 MG TABLET PO SCH (21:30)
[2021-08-13] MEDS: ATORVASTATIN CA 40 MG TABLET (FP) PO SCH (21:30)
[2021-08-13] MEDS: THIAMINE HCL 100 MG TABLET (FP) PO SCH (21:30)
[2021-08-13] MEDS: MELATONIN 5 MG TABLETS PO SCH (21:30)
[2021-08-14] MEDS: metFORMIN HCL 500 MG TABLET (FP) PO SCH (06:22)
[2021-08-14] MEDS: IBUPROFEN 400 MG TABLET (FP) PO PRN (06:22)
[2021-08-14] MEDS: PRENATAL VITAMINS W/ FOLIC ACID TABLET (FP) PO SCH (10:27)
[2021-08-14] MEDS: METHYL SALICYLATE/MENTHOL OINT 30 GM TUBE TP SCH ×2 (10:27→21:06)
[2021-08-14] MEDS: metoPROLOL SUCCINATE 25 MG TAB.SR.24H (FP) PO SCH (10:27)
[2021-08-14] MEDS: PANTOPRAZOLE 20 MG TABLET PO SCH ×2 (10:27→21:05)
[2021-08-14] MEDS: ASPIRIN 81 MG CHEWABLE TABLETS PO SCH (10:27)
[2021-08-14] MEDS: OLANZapine 10 MG TABLET PO SCH ×2 (10:28→21:05)
[2021-08-14] MEDS: NICOTINE 21 MG/24 HOURS TOPICAL PATCH TD SCH (10:28)
[2021-08-14] MEDS: MELATONIN 5 MG TABLETS PO SCH (21:05)
[2021-08-14] MEDS: ATORVASTATIN CA 40 MG TABLET (FP) PO SCH (21:05)
[2021-08-14] MEDS: MIRTAZAPINE 30 MG TABLET PO SCH (21:05)
[2021-08-14] MEDS: THIAMINE HCL 100 MG TABLET (FP) PO SCH (21:05)
[2021-08-15] MEDS: metFORMIN HCL 500 MG TABLET (FP) PO SCH (06:31)
[2021-08-15] MEDS: IBUPROFEN 400 MG TABLET (FP) PO PRN (06:31)
[2021-08-15] MEDS: OLANZapine 10 MG TABLET PO SCH ×2 (09:46→21:14)
[2021-08-15] MEDS: METHYL SALICYLATE/MENTHOL OINT 30 GM TUBE TP SCH ×2 (09:46→21:15)
[2021-08-15] MEDS: NICOTINE 21 MG/24 HOURS TOPICAL PATCH TD SCH (09:46)
[2021-08-15] MEDS: PRENATAL VITAMINS W/ FOLIC ACID TABLET (FP) PO SCH (09:46)
[2021-08-15] MEDS: PANTOPRAZOLE 20 MG TABLET PO SCH ×2 (09:46→21:14)
[2021-08-15] MEDS: ASPIRIN 81 MG CHEWABLE TABLETS PO SCH (09:46)
[2021-08-15] MEDS: metoPROLOL SUCCINATE 25 MG TAB.SR.24H (FP) PO SCH (09:47)
[2021-08-15] MEDS: METHOCARBAMOL 750 MG TABLET PO SCH ×2 (14:42→21:14)
[2021-08-15] MEDS: ATORVASTATIN CA 40 MG TABLET (FP) PO SCH (21:14)
[2021-08-15] MEDS: MIRTAZAPINE 30 MG TABLET PO SCH (21:14)
[2021-08-15] MEDS: THIAMINE HCL 100 MG TABLET (FP) PO SCH (21:14)
[2021-08-15] MEDS: MELATONIN 5 MG TABLETS PO SCH (21:14)
[2021-08-16] MEDS: METHOCARBAMOL 750 MG TABLET PO SCH ×3 (06:19→21:41)
[2021-08-16] MEDS: metFORMIN HCL 500 MG TABLET (FP) PO SCH (06:19)
[2021-08-16] MEDS: metoPROLOL SUCCINATE 25 MG TAB.SR.24H (FP) PO SCH (10:33)
[2021-08-16] MEDS: PANTOPRAZOLE 20 MG TABLET PO SCH ×2 (10:33→21:40)
[2021-08-16] MEDS: NICOTINE 21 MG/24 HOURS TOPICAL PATCH TD SCH (10:33)
[2021-08-16] MEDS: PRENATAL VITAMINS W/ FOLIC ACID TABLET (FP) PO SCH (10:33)
[2021-08-16] MEDS: ASPIRIN 81 MG CHEWABLE TABLETS PO SCH (10:33)
[2021-08-16] MEDS: OLANZapine 10 MG TABLET PO SCH ×2 (10:33→21:40)
[2021-08-16] MEDS: METHYL SALICYLATE/MENTHOL OINT 30 GM TUBE TP SCH ×2 (10:34→21:42)
[2021-08-16] MEDS: MIRTAZAPINE 30 MG TABLET PO SCH (21:40)
[2021-08-16] MEDS: ATORVASTATIN CA 40 MG TABLET (FP) PO SCH (21:40)
[2021-08-16] MEDS: MELATONIN 5 MG TABLETS PO SCH (21:41)
[2021-08-16] MEDS: THIAMINE HCL 100 MG TABLET (FP) PO SCH (21:41)
[2021-08-17] MEDS: METHOCARBAMOL 750 MG TABLET PO SCH ×3 (06:03→21:20)
[2021-08-17] MEDS: metFORMIN HCL 500 MG TABLET (FP) PO SCH (06:03)
[2021-08-17] MEDS: PRENATAL VITAMINS W/ FOLIC ACID TABLET (FP) PO SCH (10:25)
[2021-08-17] MEDS: ASPIRIN 81 MG CHEWABLE TABLETS PO SCH (10:25)
[2021-08-17] MEDS: NICOTINE 21 MG/24 HOURS TOPICAL PATCH TD SCH (10:25)
[2021-08-17] MEDS: PANTOPRAZOLE 20 MG TABLET PO SCH ×2 (10:25→21:20)
[2021-08-17] MEDS: metoPROLOL SUCCINATE 25 MG TAB.SR.24H (FP) PO SCH (10:25)
[2021-08-17] MEDS: OLANZapine 10 MG TABLET PO SCH ×2 (10:26→22:30)
[2021-08-17] MEDS: METHYL SALICYLATE/MENTHOL OINT 30 GM TUBE TP SCH ×2 (10:35→21:20)
[2021-08-17] MEDS: THIAMINE HCL 100 MG TABLET (FP) PO SCH (21:19)
[2021-08-17] MEDS: GABAPENTIN 300 MG CAPSULE PO PRN (21:19)
[2021-08-17] MEDS: MELATONIN 5 MG TABLETS PO SCH (21:19)
[2021-08-17] MEDS: ATORVASTATIN CA 40 MG TABLET (FP) PO SCH (21:20)
[2021-08-17] MEDS: MIRTAZAPINE 30 MG TABLET PO SCH (21:20)
[2021-08-17] MEDS ORDERED: PT OWN MED DRAWER 7, Y5N ONE (22:15)
[2021-08-18] MEDS: metFORMIN HCL 500 MG TABLET (FP) PO SCH (06:46)
[2021-08-18] MEDS: METHOCARBAMOL 750 MG TABLET PO SCH ×3 (06:46→21:34)
[2021-08-18] MEDS: OLANZapine 10 MG TABLET PO SCH ×2 (09:54→21:33)
[2021-08-18] MEDS: PANTOPRAZOLE 20 MG TABLET PO SCH ×2 (09:54→21:34)
[2021-08-18] MEDS: NICOTINE 21 MG/24 HOURS TOPICAL PATCH TD SCH (09:54)
[2021-08-18] MEDS: PRENATAL VITAMINS W/ FOLIC ACID TABLET (FP) PO SCH (09:54)
[2021-08-18] MEDS: metoPROLOL SUCCINATE 25 MG TAB.SR.24H (FP) PO SCH (09:54)
[2021-08-18] MEDS: METHYL SALICYLATE/MENTHOL OINT 30 GM TUBE TP SCH ×2 (09:55→21:34)
[2021-08-18] MEDS: ASPIRIN 81 MG CHEWABLE TABLETS PO SCH (10:34)
[2021-08-18] MEDS: GABAPENTIN 300 MG CAPSULE PO PRN (15:32)
[2021-08-18] MEDS: MELATONIN 5 MG TABLETS PO SCH (21:33)
[2021-08-18] MEDS: THIAMINE HCL 100 MG TABLET (FP) PO SCH (21:33)
[2021-08-18] MEDS: MIRTAZAPINE 30 MG TABLET PO SCH (21:34)
[2021-08-18] MEDS: ATORVASTATIN CA 40 MG TABLET (FP) PO SCH (21:34)
[2021-08-19] MEDS: METHOCARBAMOL 750 MG TABLET PO SCH ×3 (06:47→21:18)
[2021-08-19] MEDS: metFORMIN HCL 500 MG TABLET (FP) PO SCH (06:48)
[2021-08-19] MEDS: OLANZapine 10 MG TABLET PO SCH ×2 (10:21→21:18)
[2021-08-19] MEDS: ASPIRIN 81 MG CHEWABLE TABLETS PO SCH (10:21)
[2021-08-19] MEDS: METHYL SALICYLATE/MENTHOL OINT 30 GM TUBE TP SCH ×2 (10:21→21:19)
[2021-08-19] MEDS: PANTOPRAZOLE 20 MG TABLET PO SCH ×2 (10:21→21:18)
[2021-08-19] MEDS: PRENATAL VITAMINS W/ FOLIC ACID TABLET (FP) PO SCH (10:21)
[2021-08-19] MEDS: metoPROLOL SUCCINATE 25 MG TAB.SR.24H (FP) PO SCH (10:21)
[2021-08-19] MEDS: NICOTINE 21 MG/24 HOURS TOPICAL PATCH TD SCH (10:21)
[2021-08-19] MEDS: MELATONIN 5 MG TABLETS PO SCH (21:18)
[2021-08-19] MEDS: THIAMINE HCL 100 MG TABLET (FP) PO SCH (21:18)
[2021-08-19] MEDS: MIRTAZAPINE 30 MG TABLET PO SCH (21:18)
[2021-08-19] MEDS: ATORVASTATIN CA 40 MG TABLET (FP) PO SCH (21:18)
[2021-08-20] MEDS: METHOCARBAMOL 750 MG TABLET PO SCH ×3 (06:20→21:31)
[2021-08-20] MEDS: metFORMIN HCL 500 MG TABLET (FP) PO SCH (06:20)
[2021-08-20] MEDS: metoPROLOL SUCCINATE 25 MG TAB.SR.24H (FP) PO SCH (10:03)
[2021-08-20] MEDS: NICOTINE 21 MG/24 HOURS TOPICAL PATCH TD SCH (10:03)
[2021-08-20] MEDS: PANTOPRAZOLE 20 MG TABLET PO SCH ×2 (10:03→21:31)
[2021-08-20] MEDS: ASPIRIN 81 MG CHEWABLE TABLETS PO SCH (10:03)
[2021-08-20] MEDS: OLANZapine 10 MG TABLET PO SCH ×2 (10:03→21:31)
[2021-08-20] MEDS: PRENATAL VITAMINS W/ FOLIC ACID TABLET (FP) PO SCH (10:04)
[2021-08-20] MEDS: METHYL SALICYLATE/MENTHOL OINT 30 GM TUBE TP SCH ×2 (10:04→21:32)
[2021-08-20] MEDS: MIRTAZAPINE 30 MG TABLET PO SCH (21:31)
[2021-08-20] MEDS: MELATONIN 5 MG TABLETS PO SCH (21:31)
[2021-08-20] MEDS: ATORVASTATIN CA 40 MG TABLET (FP) PO SCH (21:31)
[2021-08-20] MEDS: THIAMINE HCL 100 MG TABLET (FP) PO SCH (21:33)
[2021-08-21] MEDS ORDERED: PT OWN MED DRAWER 7, Y5N ONE (03:01)
[2021-08-21] MEDS: METHOCARBAMOL 750 MG TABLET PO SCH ×3 (06:17→21:16)
[2021-08-21] MEDS: metFORMIN HCL 500 MG TABLET (FP) PO SCH (06:18)
[2021-08-21] MEDS: ASPIRIN 81 MG CHEWABLE TABLETS PO SCH (09:30)
[2021-08-21] MEDS: NICOTINE 21 MG/24 HOURS TOPICAL PATCH TD SCH (09:30)
[2021-08-21] MEDS: METHYL SALICYLATE/MENTHOL OINT 30 GM TUBE TP SCH ×2 (09:30→21:17)
[2021-08-21] MEDS: PRENATAL VITAMINS W/ FOLIC ACID TABLET (FP) PO SCH (09:31)
[2021-08-21] MEDS: metoPROLOL SUCCINATE 25 MG TAB.SR.24H (FP) PO SCH (09:31)
[2021-08-21] MEDS: PANTOPRAZOLE 20 MG TABLET PO SCH ×2 (09:31→21:16)
[2021-08-21] MEDS: OLANZapine 10 MG TABLET PO SCH ×2 (09:31→21:16)
[2021-08-21] MEDS: THIAMINE HCL 100 MG TABLET (FP) PO SCH (21:16)
[2021-08-21] MEDS: ATORVASTATIN CA 40 MG TABLET (FP) PO SCH (21:16)
[2021-08-21] MEDS: MIRTAZAPINE 30 MG TABLET PO SCH (21:16)
[2021-08-21] MEDS: MELATONIN 5 MG TABLETS PO SCH (21:16)
[2021-08-22] MEDS: METHOCARBAMOL 750 MG TABLET PO SCH ×3 (06:36→21:39)
[2021-08-22] MEDS: metFORMIN HCL 500 MG TABLET (FP) PO SCH (06:36)
[2021-08-22] MEDS: PRENATAL VITAMINS W/ FOLIC ACID TABLET (FP) PO SCH (10:08)
[2021-08-22] MEDS: PANTOPRAZOLE 20 MG TABLET PO SCH ×2 (10:08→21:38)
[2021-08-22] MEDS: METHYL SALICYLATE/MENTHOL OINT 30 GM TUBE TP SCH ×2 (10:09→21:40)
[2021-08-22] MEDS: ASPIRIN 81 MG CHEWABLE TABLETS PO SCH (10:09)
[2021-08-22] MEDS: OLANZapine 10 MG TABLET PO SCH ×2 (10:09→21:38)
[2021-08-22] MEDS: metoPROLOL SUCCINATE 25 MG TAB.SR.24H (FP) PO SCH (10:09)
[2021-08-22] MEDS: NICOTINE 21 MG/24 HOURS TOPICAL PATCH TD SCH (10:09)
[2021-08-22] MEDS: MIRTAZAPINE 30 MG TABLET PO SCH (21:38)
[2021-08-22] MEDS: ATORVASTATIN CA 40 MG TABLET (FP) PO SCH (21:39)
[2021-08-22] MEDS: THIAMINE HCL 100 MG TABLET (FP) PO SCH (21:39)
[2021-08-22] MEDS: MELATONIN 5 MG TABLETS PO SCH (21:39)
[2021-08-23] MEDS: METHOCARBAMOL 750 MG TABLET PO SCH ×3 (06:40→21:12)
[2021-08-23] MEDS: metFORMIN HCL 500 MG TABLET (FP) PO SCH (06:40)
[2021-08-23] MEDS: ASPIRIN 81 MG CHEWABLE TABLETS PO SCH (09:45)
[2021-08-23] MEDS: PRENATAL VITAMINS W/ FOLIC ACID TABLET (FP) PO SCH (09:45)
[2021-08-23] MEDS: PANTOPRAZOLE 20 MG TABLET PO SCH ×2 (09:45→21:11)
[2021-08-23] MEDS: metoPROLOL SUCCINATE 25 MG TAB.SR.24H (FP) PO SCH (09:45)
[2021-08-23] MEDS: NICOTINE 21 MG/24 HOURS TOPICAL PATCH TD SCH (09:45)
[2021-08-23] MEDS: METHYL SALICYLATE/MENTHOL OINT 30 GM TUBE TP SCH ×2 (09:46→21:12)
[2021-08-23] MEDS: OLANZapine 10 MG TABLET PO SCH ×2 (09:46→21:12)
[2021-08-23] MEDS: MIRTAZAPINE 30 MG TABLET PO SCH (21:11)
[2021-08-23] MEDS: ATORVASTATIN CA 40 MG TABLET (FP) PO SCH (21:11)
[2021-08-23] MEDS: THIAMINE HCL 100 MG TABLET (FP) PO SCH (21:12)
[2021-08-23] MEDS: MELATONIN 5 MG TABLETS PO SCH (21:12)
[2021-08-24] MEDS: METHOCARBAMOL 750 MG TABLET PO SCH ×3 (06:40→21:28)
[2021-08-24] MEDS: metFORMIN HCL 500 MG TABLET (FP) PO SCH (06:47)
[2021-08-24] MEDS: PANTOPRAZOLE 20 MG TABLET PO SCH ×2 (09:54→21:28)
[2021-08-24] MEDS: OLANZapine 10 MG TABLET PO SCH ×2 (09:54→21:28)
[2021-08-24] MEDS: METHYL SALICYLATE/MENTHOL OINT 30 GM TUBE TP SCH ×2 (09:54→21:29)
[2021-08-24] MEDS: PRENATAL VITAMINS W/ FOLIC ACID TABLET (FP) PO SCH (09:54)
[2021-08-24] MEDS: ASPIRIN 81 MG CHEWABLE TABLETS PO SCH (09:54)
[2021-08-24] MEDS: metoPROLOL SUCCINATE 25 MG TAB.SR.24H (FP) PO SCH (09:54)
[2021-08-24] MEDS: NICOTINE 21 MG/24 HOURS TOPICAL PATCH TD SCH (09:54)
[2021-08-24] MEDS: THIAMINE HCL 100 MG TABLET (FP) PO SCH (21:28)
[2021-08-24] MEDS: MIRTAZAPINE 30 MG TABLET PO SCH (21:28)
[2021-08-24] MEDS: MELATONIN 5 MG TABLETS PO SCH (21:28)
[2021-08-24] MEDS: ATORVASTATIN CA 40 MG TABLET (FP) PO SCH (21:28)
[2021-08-25] MEDS: METHOCARBAMOL 750 MG TABLET PO SCH (06:16)
[2021-08-25] MEDS: metFORMIN HCL 500 MG TABLET (FP) PO SCH (06:16)
[2021-08-25 06:48] VITALS: BP 152/79; PULSE 81; TEMP 98
[2021-08-25] MEDS ORDERED: PT OWN MED DRAWER 7, Y5N ONE (08:44)
== END 2021-08-25 08:48 | disposition home or self-care (01) | DRG 772 ==
LOC: YASAS 17:12 → Y3W 17:46
PROVIDERS: ADMIT Allergy & Immunology; ATTEND Allergy & Immunology
PROC: HZ42ZZZ Group Counseling for Substance Abuse Treatment, Cognitive-Behavioral (ICD-10-PCS; principal; 2021-08-06)
DX: F10.20 Alcohol dependence, uncomplicated (principal); F14.20 Cocaine dependence, uncomplicated; F12.20 Cannabis dependence, uncomplicated; F17.210 Nicotine dependence, cigarettes, uncomplicated; F25.9 Schizoaffective disorder, unspecified; I10 Essential (primary) hypertension; E11.9 Type 2 diabetes mellitus without complications; J44.9 Chronic obstructive pulmonary disease, unspecified; M17.12 Unilateral primary osteoarthritis, left knee; Q98.4 Klinefelter syndrome, unspecified; I25.2 Old myocardial infarction; D75.A Glucose-6-phosphate dehydrogenase (G6PD) deficiency without anemia; R00.1 Bradycardia, unspecified; Z91.038 Other insect allergy status; Z88.8 Allergy status to other drugs, medicaments and biological substances; Z79.84 Long term (current) use of oral hypoglycemic drugs
CPT/HCPCS: 82962

== ENCOUNTER 2021-11-24 10:05 | Inpatient (IN) | payer OTHER ==
[2021-11-24] MEDS ORDERED: LORazepam 1 MG TABLET PO PRN (10:49)
[2021-11-24] MEDS ORDERED: BISMUTH SUBSALICYLATE 262 MG/15 ML BTL PO PRN (10:49)
[2021-11-24] MEDS ORDERED: IBUPROFEN 400 MG TABLET (FP) PO PRN (10:49)
[2021-11-24] MEDS ORDERED: MAG HYDROX/AL HYDROX/SIMETH 30 ML UNIT-DOSE CUP PO PRN (10:49)
[2021-11-24] MEDS ORDERED: MAGNESIUM CITRATE 300 ML BOTTLE PO PRN (10:49)
[2021-11-24] MEDS ORDERED: ACETAMINOPHEN 325 MG TABLET (FP) PO PRN ×2 (10:49)
[2021-11-24] MEDS ORDERED: MENTHOL/PHENOL 1 EACH UD MM PRN (10:49)
[2021-11-24] MEDS ORDERED: MAGNESIUM HYDROX 2400MG/30ML ORAL SUSPENSION 30 ML CUP PO PRN (10:49)
[2021-11-24] MEDS ORDERED: NICOTINE 10 MG CARTRIDGE (INHALER) IH PRN (10:49)
[2021-11-24] MEDS ORDERED: ONDANSETRON *ODT* 4 MG TABLET SL PRN (10:49)
[2021-11-24] MEDS ORDERED: NICOTINE 7 MG/24 HOURS TOPICAL PATCH TD SCH (11:00)
[2021-11-24] MEDS ORDERED: GABAPENTIN 300 MG CAPSULE PO PRN (11:11)
[2021-11-24 13:15] VITALS: BMI 28.4
[2021-11-24] MEDS: NICOTINE 7 MG/24 HOURS TOPICAL PATCH TD SCH (13:43)
[2021-11-24] MEDS: PRENATAL VITAMINS W/ FOLIC ACID TABLET (FP) PO SCH (13:43)
[2021-11-24] MEDS: LORazepam 2 MG TABLET PO SCH ×3 (13:46→22:17)
[2021-11-24] MEDS: hydrOXYzine PAMOATE 25 MG CAPSULE (FP) PO SCH ×3 (13:48→22:17)
[2021-11-24] MEDS ORDERED: MELATONIN 5 MG TABLETS PO SCH (22:00)
[2021-11-24] MEDS: ATORVASTATIN CA 40 MG TABLET (FP) PO SCH (22:17)
[2021-11-24] MEDS: MIRTAZAPINE 30 MG TABLET PO SCH (22:17)
[2021-11-24] MEDS: OLANZapine 10 MG TABLET PO SCH (22:17)
[2021-11-24] MEDS: THIAMINE HCL 100 MG TABLET (FP) PO SCH (22:17)
[2021-11-25] MEDS: hydrOXYzine PAMOATE 25 MG CAPSULE (FP) PO SCH ×5 (05:51→22:57)
[2021-11-25] MEDS: LORazepam 2 MG TABLET PO SCH ×4 (05:51→22:57)
[2021-11-25] MEDS: metFORMIN HCL 500 MG TABLET (FP) PO SCH (07:18)
[2021-11-25] MEDS: METHOCARBAMOL 500 MG TABLET PO PRN (10:32)
[2021-11-25] MEDS: ASPIRIN 81 MG CHEWABLE TABLETS PO SCH (10:32)
[2021-11-25] MEDS: OLANZapine 10 MG TABLET PO SCH ×2 (10:33→22:57)
[2021-11-25] MEDS: PRENATAL VITAMINS W/ FOLIC ACID TABLET (FP) PO SCH (10:34)
[2021-11-25] MEDS: NICOTINE 7 MG/24 HOURS TOPICAL PATCH TD SCH (10:34)
[2021-11-25] MEDS: metoPROLOL SUCCINATE 25 MG TAB.SR.24H (FP) PO SCH (11:05)
[2021-11-25 13:30] LABS: CALCIUM 8.5 mg/dL (8.5-10.1)
[2021-11-25 13:31] LABS: ALBUMIN 2.9 g/dl (3.4-5.0); BLOOD UREA NITROGEN 13.5 mg/dL (7-18); HEMATOCRIT 38.8 % (35.4-49); HEMOGLOBIN 12.9 GM/dL (11.7-16.9); MCH 32.6 pg (25.7-33.7); MCHC 33.3 g/dl (32.0-35.9); MEAN CELL VOLUME 97.9 fl (80-96); MEAN PLT VOLUME 8.9 fl (7.5-11.1); PLATELET COUNT 129 10^3/uL (134-434); RBC 3.96 M/mm3 (4.00-5.60); RDW 15.5 % (11.9-15.9); WHITE BLOOD COUNT 3.1 K/mm3 (4.0-10.0)
[2021-11-25 13:32] LABS: CREATININE 0.7 mg/dL (0.55-1.3)
[2021-11-25 13:35] LABS: BILIRUBIN,TOTAL 0.5 mg/dL (0.2-1)
[2021-11-25 13:36] LABS: TOT PROT 5.4 g/dl (6.4-8.2)
[2021-11-25] MEDS: ATORVASTATIN CA 40 MG TABLET (FP) PO SCH (22:56)
[2021-11-25] MEDS: THIAMINE HCL 100 MG TABLET (FP) PO SCH (22:56)
[2021-11-25] MEDS: MIRTAZAPINE 30 MG TABLET PO SCH (22:57)
[2021-11-26] MEDS: LORazepam 1 MG TABLET PO SCH ×4 (05:36→23:04)
[2021-11-26] MEDS: hydrOXYzine PAMOATE 25 MG CAPSULE (FP) PO SCH ×5 (05:36→21:48)
[2021-11-26] MEDS: metFORMIN HCL 500 MG TABLET (FP) PO SCH (06:31)
[2021-11-26] MEDS: METHOCARBAMOL 500 MG TABLET PO PRN (10:26)
[2021-11-26] MEDS: OLANZapine 10 MG TABLET PO SCH ×2 (10:26→21:51)
[2021-11-26] MEDS: PRENATAL VITAMINS W/ FOLIC ACID TABLET (FP) PO SCH (10:26)
[2021-11-26] MEDS: NICOTINE 7 MG/24 HOURS TOPICAL PATCH TD SCH (10:27)
[2021-11-26] MEDS: metoPROLOL SUCCINATE 25 MG TAB.SR.24H (FP) PO SCH (10:27)
[2021-11-26] MEDS: ASPIRIN 81 MG CHEWABLE TABLETS PO SCH (10:27)
[2021-11-26] MEDS: ATORVASTATIN CA 40 MG TABLET (FP) PO SCH (21:48)
[2021-11-26] MEDS: THIAMINE HCL 100 MG TABLET (FP) PO SCH (21:49)
[2021-11-26] MEDS: MIRTAZAPINE 30 MG TABLET PO SCH (21:49)
[2021-11-27] MEDS ORDERED: LORazepam 0.5 MG TABLET PO PRN
[2021-11-27] MEDS: LORazepam 0.5 MG TABLET PO SCH ×4 (06:39→22:47)
[2021-11-27] MEDS: metFORMIN HCL 500 MG TABLET (FP) PO SCH (06:39)
[2021-11-27] MEDS: hydrOXYzine PAMOATE 25 MG CAPSULE (FP) PO SCH ×5 (06:39→22:46)
[2021-11-27] MEDS: metoPROLOL SUCCINATE 25 MG TAB.SR.24H (FP) PO SCH (10:29)
[2021-11-27] MEDS: PRENATAL VITAMINS W/ FOLIC ACID TABLET (FP) PO SCH (10:29)
[2021-11-27] MEDS: ASPIRIN 81 MG CHEWABLE TABLETS PO SCH (10:29)
[2021-11-27] MEDS: NICOTINE 7 MG/24 HOURS TOPICAL PATCH TD SCH (10:30)
[2021-11-27] MEDS: OLANZapine 10 MG TABLET PO SCH (10:37)
[2021-11-27] MEDS ORDERED: OLANZapine 10 MG TABLET PO SCH (22:00)
[2021-11-27] MEDS: ATORVASTATIN CA 40 MG TABLET (FP) PO SCH (22:46)
[2021-11-27] MEDS: THIAMINE HCL 100 MG TABLET (FP) PO SCH (22:46)
[2021-11-28] MEDS ORDERED: LORazepam 0.5 MG TABLET PO ONE (05:00)
[2021-11-28] MEDS: hydrOXYzine PAMOATE 25 MG CAPSULE (FP) PO SCH ×4 (05:39→17:30)
[2021-11-28] MEDS: metFORMIN HCL 500 MG TABLET (FP) PO SCH (08:50)
[2021-11-28] MEDS: metoPROLOL SUCCINATE 25 MG TAB.SR.24H (FP) PO SCH (10:45)
[2021-11-28] MEDS: NICOTINE 7 MG/24 HOURS TOPICAL PATCH TD SCH (10:45)
[2021-11-28] MEDS: ASPIRIN 81 MG CHEWABLE TABLETS PO SCH (10:45)
[2021-11-28] MEDS: PRENATAL VITAMINS W/ FOLIC ACID TABLET (FP) PO SCH (10:45)
[2021-11-28 17:04] VITALS: BP 155/81; PULSE 78; TEMP 97.8
== END 2021-11-28 17:40 | disposition other institution (70) | DRG 774 ==
LOC: YASAS 10:05 → Y6N 12:37
PROVIDERS: ADMIT Allergy & Immunology; ATTEND Allergy & Immunology
PROC: HZ2ZZZZ Detoxification Services for Substance Abuse Treatment (ICD-10-PCS; principal; 2021-11-24)
DX: F10.230 Alcohol dependence with withdrawal, uncomplicated (principal); F14.20 Cocaine dependence, uncomplicated; F12.20 Cannabis dependence, uncomplicated; F17.210 Nicotine dependence, cigarettes, uncomplicated; F19.282 Other psychoactive substance dependence with psychoactive substance-induced sleep disorder; F19.280 Other psychoactive substance dependence with psychoactive substance-induced anxiety disorder; F25.9 Schizoaffective disorder, unspecified; D75.A Glucose-6-phosphate dehydrogenase (G6PD) deficiency without anemia; I25.10 Atherosclerotic heart disease of native coronary artery without angina pectoris; I10 Essential (primary) hypertension; I42.2 Other hypertrophic cardiomyopathy; I25.2 Old myocardial infarction; E78.5 Hyperlipidemia, unspecified; E11.9 Type 2 diabetes mellitus without complications; Z79.84 Long term (current) use of oral hypoglycemic drugs; M17.12 Unilateral primary osteoarthritis, left knee; Z96.642 Presence of left artificial hip joint; Z62.810 Personal history of physical and sexual abuse in childhood; Z88.8 Allergy status to other drugs, medicaments and biological substances
CPT/HCPCS: 36415; 80053; 82962; 85027; 86780; C9803; U0003; U0005

== ENCOUNTER 2021-11-28 17:58 | Inpatient (IN) | payer OTHER ==
[2021-11-28] MEDS ORDERED: MELATONIN 5 MG TABLETS PO SCH (22:00)
[2021-11-28] MEDS ORDERED: MAG HYDROX/AL HYDROX/SIMETH 30 ML UNIT-DOSE CUP PO PRN (23:02)
[2021-11-28] MEDS ORDERED: MAGNESIUM HYDROX 2400MG/30ML ORAL SUSPENSION 30 ML CUP PO PRN (23:02)
[2021-11-28] MEDS ORDERED: guaiFENesin 200 MG/10 ML 10 ML UNIT-DOSE CUPS PO PRN (23:02)
[2021-11-28] MEDS ORDERED: NICOTINE 10 MG CARTRIDGE (INHALER) IH PRN (23:02)
[2021-11-28] MEDS ORDERED: NICOTINE POLACRILEX 2 MG GUM BUC PRN (23:02)
[2021-11-28] MEDS ORDERED: P-EPHED 60MG/TRIPROLIDI 2.5MG TABLET PO PRN (23:02)
[2021-11-28] MEDS ORDERED: MENTHOL/PHENOL 1 EACH UD MM PRN (23:02)
[2021-11-28] MEDS ORDERED: MAGNESIUM CITRATE 300 ML BOTTLE PO PRN (23:02)
[2021-11-28] MEDS ORDERED: IBUPROFEN 400 MG TABLET (FP) PO PRN (23:02)
[2021-11-28] MEDS ORDERED: hydrOXYzine PAMOATE 25 MG CAPSULE (FP) PO PRN (23:02)
[2021-11-29] MEDS: metFORMIN HCL 500 MG TABLET (FP) PO SCH (06:44)
[2021-11-29] MEDS: ASPIRIN 81 MG CHEWABLE TABLETS PO SCH (09:46)
[2021-11-29] MEDS: PRENATAL VITAMINS W/ FOLIC ACID TABLET (FP) PO SCH (09:46)
[2021-11-29] MEDS: metoPROLOL SUCCINATE 25 MG TAB.SR.24H (FP) PO SCH (09:46)
[2021-11-29] MEDS: OLANZapine 10 MG TABLET PO SCH ×2 (09:46→22:08)
[2021-11-29] MEDS ORDERED: MIRTAZAPINE 15 MG TABLET (FP) ONE (21:52)
[2021-11-29] MEDS: ATORVASTATIN CA 40 MG TABLET (FP) PO SCH (22:08)
[2021-11-29] MEDS: MIRTAZAPINE 30 MG TABLET PO SCH (22:08)
[2021-11-29] MEDS: THIAMINE HCL 100 MG TABLET (FP) PO SCH (22:08)
[2021-11-29] MEDS: LOPERAMIDE HCL 2 MG CAPSULE PO PRN (22:10)
[2021-11-30] MEDS: metFORMIN HCL 500 MG TABLET (FP) PO SCH (06:44)
[2021-11-30] MEDS: metoPROLOL SUCCINATE 25 MG TAB.SR.24H (FP) PO SCH (11:01)
[2021-11-30] MEDS: OLANZapine 10 MG TABLET PO SCH ×2 (11:01→21:50)
[2021-11-30] MEDS: PRENATAL VITAMINS W/ FOLIC ACID TABLET (FP) PO SCH (11:01)
[2021-11-30] MEDS: ASPIRIN 81 MG CHEWABLE TABLETS PO SCH (11:01)
[2021-11-30] MEDS ORDERED: MIRTAZAPINE 15 MG TABLET (FP) ONE (20:54)
[2021-11-30] MEDS: ATORVASTATIN CA 40 MG TABLET (FP) PO SCH (21:50)
[2021-11-30] MEDS: MIRTAZAPINE 30 MG TABLET PO SCH (21:50)
[2021-11-30] MEDS: THIAMINE HCL 100 MG TABLET (FP) PO SCH (21:50)
[2021-12-01] MEDS: metFORMIN HCL 500 MG TABLET (FP) PO SCH (06:32)
[2021-12-01] MEDS: OLANZapine 10 MG TABLET PO SCH ×2 (10:06→21:54)
[2021-12-01] MEDS: PRENATAL VITAMINS W/ FOLIC ACID TABLET (FP) PO SCH (10:07)
[2021-12-01] MEDS: metoPROLOL SUCCINATE 25 MG TAB.SR.24H (FP) PO SCH (10:07)
[2021-12-01] MEDS: ASPIRIN 81 MG CHEWABLE TABLETS PO SCH (10:07)
[2021-12-01] MEDS: METHOCARBAMOL 500 MG TABLET PO SCH ×2 (15:01→21:54)
[2021-12-01] MEDS ORDERED: MIRTAZAPINE 15 MG TABLET (FP) ONE (19:24)
[2021-12-01] MEDS: GABAPENTIN 300 MG CAPSULE PO PRN (21:53)
[2021-12-01] MEDS: THIAMINE HCL 100 MG TABLET (FP) PO SCH (21:54)
[2021-12-01] MEDS: ATORVASTATIN CA 40 MG TABLET (FP) PO SCH (21:54)
[2021-12-01] MEDS: MIRTAZAPINE 30 MG TABLET PO SCH (21:55)
[2021-12-01] MEDS: METHYL SALICYLATE/MENTHOL OINT 30 GM TUBE TP SCH (21:55)
[2021-12-02] MEDS: METHOCARBAMOL 500 MG TABLET PO SCH ×3 (06:39→21:38)
[2021-12-02] MEDS: metFORMIN HCL 500 MG TABLET (FP) PO SCH (06:39)
[2021-12-02] MEDS: metoPROLOL SUCCINATE 25 MG TAB.SR.24H (FP) PO SCH (10:03)
[2021-12-02] MEDS: OLANZapine 10 MG TABLET PO SCH ×2 (10:04→21:38)
[2021-12-02] MEDS: METHYL SALICYLATE/MENTHOL OINT 30 GM TUBE TP SCH ×2 (10:04→21:39)
[2021-12-02] MEDS: ASPIRIN 81 MG CHEWABLE TABLETS PO SCH (10:04)
[2021-12-02] MEDS: PRENATAL VITAMINS W/ FOLIC ACID TABLET (FP) PO SCH (10:04)
[2021-12-02] MEDS ORDERED: MIRTAZAPINE 15 MG TABLET (FP) ONE (19:48)
[2021-12-02] MEDS: THIAMINE HCL 100 MG TABLET (FP) PO SCH (21:38)
[2021-12-02] MEDS: ATORVASTATIN CA 40 MG TABLET (FP) PO SCH (21:38)
[2021-12-02] MEDS: MIRTAZAPINE 30 MG TABLET PO SCH (21:39)
[2021-12-03] MEDS: metFORMIN HCL 500 MG TABLET (FP) PO SCH (06:40)
[2021-12-03] MEDS: METHOCARBAMOL 500 MG TABLET PO SCH ×3 (06:40→21:23)
[2021-12-03] MEDS: METHYL SALICYLATE/MENTHOL OINT 30 GM TUBE TP SCH ×2 (10:08→21:24)
[2021-12-03] MEDS: OLANZapine 10 MG TABLET PO SCH ×2 (10:08→21:23)
[2021-12-03] MEDS: PRENATAL VITAMINS W/ FOLIC ACID TABLET (FP) PO SCH (10:08)
[2021-12-03] MEDS: LOPERAMIDE HCL 2 MG CAPSULE PO PRN ×2 (10:08→21:22)
[2021-12-03] MEDS: ASPIRIN 81 MG CHEWABLE TABLETS PO SCH (10:08)
[2021-12-03] MEDS: metoPROLOL SUCCINATE 25 MG TAB.SR.24H (FP) PO SCH (10:08)
[2021-12-03] MEDS ORDERED: MIRTAZAPINE 15 MG TABLET (FP) ONE (20:37)
[2021-12-03] MEDS: MIRTAZAPINE 30 MG TABLET PO SCH (21:22)
[2021-12-03] MEDS: THIAMINE HCL 100 MG TABLET (FP) PO SCH (21:23)
[2021-12-03] MEDS: ATORVASTATIN CA 40 MG TABLET (FP) PO SCH (21:23)
[2021-12-04] MEDS: metFORMIN HCL 500 MG TABLET (FP) PO SCH (06:30)
[2021-12-04] MEDS: METHOCARBAMOL 500 MG TABLET PO SCH ×3 (06:30→21:39)
[2021-12-04] MEDS: PRENATAL VITAMINS W/ FOLIC ACID TABLET (FP) PO SCH (09:27)
[2021-12-04] MEDS: METHYL SALICYLATE/MENTHOL OINT 30 GM TUBE TP SCH (09:27)
[2021-12-04] MEDS: OLANZapine 10 MG TABLET PO SCH ×2 (09:27→21:39)
[2021-12-04] MEDS: metoPROLOL SUCCINATE 25 MG TAB.SR.24H (FP) PO SCH (09:27)
[2021-12-04] MEDS: ASPIRIN 81 MG CHEWABLE TABLETS PO SCH (09:27)
[2021-12-04] MEDS ORDERED: MIRTAZAPINE 15 MG TABLET (FP) ONE (20:20)
[2021-12-04] MEDS: THIAMINE HCL 100 MG TABLET (FP) PO SCH (21:39)
[2021-12-04] MEDS: GABAPENTIN 300 MG CAPSULE PO PRN (21:39)
[2021-12-04] MEDS: ATORVASTATIN CA 40 MG TABLET (FP) PO SCH (21:39)
[2021-12-04] MEDS: MIRTAZAPINE 30 MG TABLET PO SCH (21:39)
[2021-12-05] MEDS: METHYL SALICYLATE/MENTHOL OINT 30 GM TUBE TP SCH ×3 (00:01→21:36)
[2021-12-05] MEDS: metFORMIN HCL 500 MG TABLET (FP) PO SCH (06:25)
[2021-12-05] MEDS: METHOCARBAMOL 500 MG TABLET PO SCH ×3 (06:25→21:36)
[2021-12-05] MEDS: ACETAMINOPHEN 325 MG TABLET (FP) PO PRN (10:17)
[2021-12-05] MEDS: metoPROLOL SUCCINATE 25 MG TAB.SR.24H (FP) PO SCH (10:17)
[2021-12-05] MEDS: ASPIRIN 81 MG CHEWABLE TABLETS PO SCH (10:17)
[2021-12-05] MEDS: OLANZapine 10 MG TABLET PO SCH ×2 (10:17→21:36)
[2021-12-05] MEDS: PANTOPRAZOLE 40 MG TABLET PO SCH (10:17)
[2021-12-05] MEDS: PRENATAL VITAMINS W/ FOLIC ACID TABLET (FP) PO SCH (10:17)
[2021-12-05] MEDS ORDERED: MIRTAZAPINE 15 MG TABLET (FP) ONE (20:48)
[2021-12-05] MEDS: THIAMINE HCL 100 MG TABLET (FP) PO SCH (21:36)
[2021-12-05] MEDS: MIRTAZAPINE 30 MG TABLET PO SCH (21:36)
[2021-12-05] MEDS: ATORVASTATIN CA 40 MG TABLET (FP) PO SCH (21:36)
[2021-12-06] MEDS: metFORMIN HCL 500 MG TABLET (FP) PO SCH (06:52)
[2021-12-06] MEDS: METHOCARBAMOL 500 MG TABLET PO SCH ×3 (06:52→21:40)
[2021-12-06] MEDS: metoPROLOL SUCCINATE 25 MG TAB.SR.24H (FP) PO SCH (09:47)
[2021-12-06] MEDS: METHYL SALICYLATE/MENTHOL OINT 30 GM TUBE TP SCH ×2 (09:48→21:52)
[2021-12-06] MEDS: PRENATAL VITAMINS W/ FOLIC ACID TABLET (FP) PO SCH (09:48)
[2021-12-06] MEDS: PANTOPRAZOLE 40 MG TABLET PO SCH (09:48)
[2021-12-06] MEDS: OLANZapine 10 MG TABLET PO SCH ×2 (09:48→21:40)
[2021-12-06] MEDS: ASPIRIN 81 MG CHEWABLE TABLETS PO SCH ×2 (09:49→10:27)
[2021-12-06] MEDS: ACETAMINOPHEN 325 MG TABLET (FP) PO PRN (13:59)
[2021-12-06] MEDS ORDERED: MIRTAZAPINE 15 MG TABLET (FP) ONE (19:21)
[2021-12-06] MEDS: ATORVASTATIN CA 40 MG TABLET (FP) PO SCH (21:40)
[2021-12-06] MEDS: THIAMINE HCL 100 MG TABLET (FP) PO SCH (21:40)
[2021-12-06] MEDS: MIRTAZAPINE 30 MG TABLET PO SCH (21:41)
[2021-12-07] MEDS: metFORMIN HCL 500 MG TABLET (FP) PO SCH (06:35)
[2021-12-07] MEDS: METHOCARBAMOL 500 MG TABLET PO SCH ×3 (06:35→21:31)
[2021-12-07] MEDS: ASPIRIN 81 MG CHEWABLE TABLETS PO SCH (09:37)
[2021-12-07] MEDS: PANTOPRAZOLE 40 MG TABLET PO SCH (09:38)
[2021-12-07] MEDS: metoPROLOL SUCCINATE 25 MG TAB.SR.24H (FP) PO SCH (09:38)
[2021-12-07] MEDS: PRENATAL VITAMINS W/ FOLIC ACID TABLET (FP) PO SCH (09:38)
[2021-12-07] MEDS: OLANZapine 10 MG TABLET PO SCH ×2 (09:38→21:31)
[2021-12-07] MEDS: ACETAMINOPHEN 325 MG TABLET (FP) PO PRN (09:39)
[2021-12-07] MEDS: METHYL SALICYLATE/MENTHOL OINT 30 GM TUBE TP SCH ×2 (09:45→21:31)
[2021-12-07] MEDS ORDERED: MIRTAZAPINE 15 MG TABLET (FP) ONE (19:12)
[2021-12-07] MEDS: ATORVASTATIN CA 40 MG TABLET (FP) PO SCH (21:30)
[2021-12-07] MEDS: THIAMINE HCL 100 MG TABLET (FP) PO SCH (21:30)
[2021-12-07] MEDS: MIRTAZAPINE 30 MG TABLET PO SCH (21:31)
[2021-12-08] MEDS: METHOCARBAMOL 500 MG TABLET PO SCH ×3 (06:36→21:43)
[2021-12-08] MEDS: metFORMIN HCL 500 MG TABLET (FP) PO SCH (06:36)
[2021-12-08] MEDS: PANTOPRAZOLE 40 MG TABLET PO SCH (09:47)
[2021-12-08] MEDS: PRENATAL VITAMINS W/ FOLIC ACID TABLET (FP) PO SCH (09:48)
[2021-12-08] MEDS: metoPROLOL SUCCINATE 25 MG TAB.SR.24H (FP) PO SCH (09:48)
[2021-12-08] MEDS: ASPIRIN 81 MG CHEWABLE TABLETS PO SCH (09:48)
[2021-12-08] MEDS: METHYL SALICYLATE/MENTHOL OINT 30 GM TUBE TP SCH ×2 (09:48→21:43)
[2021-12-08] MEDS: OLANZapine 10 MG TABLET PO SCH ×2 (10:24→21:43)
[2021-12-08] MEDS ORDERED: MIRTAZAPINE 15 MG TABLET (FP) ONE (19:52)
[2021-12-08] MEDS: ATORVASTATIN CA 40 MG TABLET (FP) PO SCH (21:42)
[2021-12-08] MEDS: THIAMINE HCL 100 MG TABLET (FP) PO SCH (21:42)
[2021-12-08] MEDS: MIRTAZAPINE 30 MG TABLET PO SCH (21:43)
[2021-12-09] MEDS: metFORMIN HCL 500 MG TABLET (FP) PO SCH (06:44)
[2021-12-09] MEDS: METHOCARBAMOL 500 MG TABLET PO SCH ×3 (06:44→21:28)
[2021-12-09] MEDS: PANTOPRAZOLE 40 MG TABLET PO SCH (09:50)
[2021-12-09] MEDS: metoPROLOL SUCCINATE 25 MG TAB.SR.24H (FP) PO SCH (09:50)
[2021-12-09] MEDS: PRENATAL VITAMINS W/ FOLIC ACID TABLET (FP) PO SCH (09:50)
[2021-12-09] MEDS: OLANZapine 10 MG TABLET PO SCH ×2 (09:50→21:28)
[2021-12-09] MEDS: METHYL SALICYLATE/MENTHOL OINT 30 GM TUBE TP SCH ×2 (09:51→21:28)
[2021-12-09] MEDS ORDERED: MIRTAZAPINE 15 MG TABLET (FP) ONE (19:23)
[2021-12-09] MEDS: ATORVASTATIN CA 40 MG TABLET (FP) PO SCH (21:28)
[2021-12-09] MEDS: MIRTAZAPINE 30 MG TABLET PO SCH (21:28)
[2021-12-09] MEDS: THIAMINE HCL 100 MG TABLET (FP) PO SCH (21:28)
[2021-12-10] MEDS: METHOCARBAMOL 500 MG TABLET PO SCH ×3 (06:42→21:33)
[2021-12-10] MEDS: metFORMIN HCL 500 MG TABLET (FP) PO SCH (06:42)
[2021-12-10] MEDS: METHYL SALICYLATE/MENTHOL OINT 30 GM TUBE TP SCH ×2 (09:54→21:33)
[2021-12-10] MEDS: metoPROLOL SUCCINATE 25 MG TAB.SR.24H (FP) PO SCH (09:54)
[2021-12-10] MEDS: PANTOPRAZOLE 40 MG TABLET PO SCH (09:54)
[2021-12-10] MEDS: PRENATAL VITAMINS W/ FOLIC ACID TABLET (FP) PO SCH (09:54)
[2021-12-10] MEDS: OLANZapine 10 MG TABLET PO SCH ×2 (09:54→21:33)
[2021-12-10] MEDS: THIAMINE HCL 100 MG TABLET (FP) PO SCH (21:33)
[2021-12-10] MEDS: ATORVASTATIN CA 40 MG TABLET (FP) PO SCH (21:33)
[2021-12-10] MEDS: MIRTAZAPINE 30 MG TABLET PO SCH (21:33)
[2021-12-11 06:38] VITALS: TEMP 97.1
[2021-12-11] MEDS: metFORMIN HCL 500 MG TABLET (FP) PO SCH (06:40)
[2021-12-11] MEDS: METHOCARBAMOL 500 MG TABLET PO SCH ×3 (06:40→21:41)
[2021-12-11] MEDS: METHYL SALICYLATE/MENTHOL OINT 30 GM TUBE TP SCH ×2 (09:33→21:40)
[2021-12-11] MEDS: OLANZapine 10 MG TABLET PO SCH ×2 (09:33→21:40)
[2021-12-11] MEDS: metoPROLOL SUCCINATE 25 MG TAB.SR.24H (FP) PO SCH (09:33)
[2021-12-11] MEDS: PRENATAL VITAMINS W/ FOLIC ACID TABLET (FP) PO SCH (09:33)
[2021-12-11] MEDS: PANTOPRAZOLE 40 MG TABLET PO SCH (09:33)
[2021-12-11] MEDS ORDERED: MIRTAZAPINE 15 MG TABLET (FP) ONE (20:49)
[2021-12-11] MEDS: THIAMINE HCL 100 MG TABLET (FP) PO SCH (21:40)
[2021-12-11] MEDS: ATORVASTATIN CA 40 MG TABLET (FP) PO SCH (21:41)
[2021-12-11] MEDS: MIRTAZAPINE 30 MG TABLET PO SCH (21:42)
[2021-12-12] MEDS: METHOCARBAMOL 500 MG TABLET PO SCH (07:34)
[2021-12-12] MEDS: metFORMIN HCL 500 MG TABLET (FP) PO SCH (07:34)
[2021-12-12 09:17] VITALS: BP 131/91; PULSE 88
[2021-12-12] MEDS: OLANZapine 10 MG TABLET PO SCH (09:23)
[2021-12-12] MEDS: PANTOPRAZOLE 40 MG TABLET PO SCH (09:23)
[2021-12-12] MEDS: PRENATAL VITAMINS W/ FOLIC ACID TABLET (FP) PO SCH (09:24)
[2021-12-12] MEDS: metoPROLOL SUCCINATE 25 MG TAB.SR.24H (FP) PO SCH (09:24)
[2021-12-12] MEDS: METHYL SALICYLATE/MENTHOL OINT 30 GM TUBE TP SCH (09:24)
== END 2021-12-12 09:45 | disposition home or self-care (01) | DRG 772 ==
LOC: YASAS 17:58 → Y3E 17:59
PROVIDERS: ADMIT Allergy & Immunology; ATTEND Allergy & Immunology
PROC: HZ42ZZZ Group Counseling for Substance Abuse Treatment, Cognitive-Behavioral (ICD-10-PCS; principal; 2021-11-28)
DX: F10.20 Alcohol dependence, uncomplicated (principal); F14.20 Cocaine dependence, uncomplicated; F12.20 Cannabis dependence, uncomplicated; F17.210 Nicotine dependence, cigarettes, uncomplicated; F32.A Depression, unspecified; E78.5 Hyperlipidemia, unspecified; I10 Essential (primary) hypertension; E11.9 Type 2 diabetes mellitus without complications; Z79.84 Long term (current) use of oral hypoglycemic drugs; Z86.2 Personal history of diseases of the blood and blood-forming organs and certain disorders involving the immune mechanism; Z88.8 Allergy status to other drugs, medicaments and biological substances; Z91.030 Bee allergy status
CPT/HCPCS: 82962; C9803; U0003; U0005

== ENCOUNTER 2022-05-29 09:23 | Inpatient (IN) | payer OTHER ==
[2022-05-29 10:00] VITALS: BMI 28.4
[2022-05-29] MEDS ORDERED: ONDANSETRON *ODT* 4 MG TABLET SL PRN (10:05)
[2022-05-29] MEDS ORDERED: IBUPROFEN 600 MG TABLET (FP) PO PRN (10:05)
[2022-05-29] MEDS ORDERED: METHOCARBAMOL 500 MG TABLET PO PRN (10:05)
[2022-05-29] MEDS ORDERED: MAG HYDROX/AL HYDROX/SIMETH 30 ML UNIT-DOSE CUP PO PRN (10:05)
[2022-05-29] MEDS ORDERED: MAGNESIUM CITRATE 300 ML BOTTLE PO PRN (10:05)
[2022-05-29] MEDS ORDERED: LOPERAMIDE HCL 2 MG CAPSULE PO PRN (10:05)
[2022-05-29] MEDS ORDERED: MAGNESIUM HYDROX 2400MG/30ML ORAL SUSPENSION 30 ML CUP PO PRN (10:05)
[2022-05-29] MEDS ORDERED: IBUPROFEN 400 MG TABLET (FP) PO PRN (10:05)
[2022-05-29] MEDS ORDERED: BENZOCAINE/MENTHOL (CHLORASEPTIC ) LOZENGE MM PRN (10:05)
[2022-05-29] MEDS ORDERED: BISMUTH SUBSALICYLATE 524 MG/30 ML PO PRN (10:05)
[2022-05-29] MEDS ORDERED: DICYCLOMINE HCL 10 MG CAPSULE PO PRN (10:05)
[2022-05-29] MEDS ORDERED: ACETAMINOPHEN 325 MG TABLET (FP) PO PRN (10:05)
[2022-05-29] MEDS ORDERED: NICOTINE 10 MG CARTRIDGE (INHALER) IH PRN (10:05)
[2022-05-29] MEDS ORDERED: LORazepam 1 MG TABLET PO PRN (10:05)
[2022-05-29] MEDS: PRENATAL VITAMINS W/ FOLIC ACID TABLET (FP) PO SCH (11:34)
[2022-05-29] MEDS: NICOTINE 14 MG/24 HOURS TOPICAL PATCH TD SCH (11:34)
[2022-05-29] MEDS: hydrOXYzine PAMOATE 25 MG CAPSULE (FP) PO SCH ×3 (15:13→22:34)
[2022-05-29 15:32] LABS: HEMATOCRIT 39.7 % (35.4-49); MCH 31.4 pg (25.7-33.7); MCHC 32.6 g/dl (32.0-35.9); MEAN CELL VOLUME 96.2 fl (80-96); MEAN PLT VOLUME 8.8 fl (7.5-11.1); PLATELET COUNT 133 10^3/uL (134-434); RBC 4.13 M/mm3 (4.00-5.60); RDW 17.1 % (11.9-15.9); WHITE BLOOD COUNT 3.3 K/mm3 (4.0-10.0)
[2022-05-29 15:36] LABS: ALBUMIN 3.3 g/dl (3.4-5.0); BLOOD UREA NITROGEN 11.4 mg/dL (7-18); CALCIUM 8.2 mg/dL (8.5-10.1)
[2022-05-29 15:39] LABS: CREATININE 0.9 mg/dL (0.55-1.3)
[2022-05-29 15:41] LABS: BILIRUBIN,TOTAL 0.4 mg/dL (0.2-1); TOT PROT 6.1 g/dl (6.4-8.2)
[2022-05-29] MEDS: LORazepam 2 MG TABLET PO SCH ×2 (18:15→22:35)
[2022-05-29] MEDS: OLANZapine 7.5 MG TABLET PO SCH (22:34)
[2022-05-29] MEDS: MIRTAZAPINE 15 MG TABLET (FP) PO SCH (22:34)
[2022-05-29] MEDS: ATORVASTATIN CA 40 MG TABLET (FP) PO SCH (22:35)
[2022-05-29] MEDS: THIAMINE HCL 100 MG TABLET (FP) PO SCH (22:35)
[2022-05-29] MEDS: MELATONIN 5 MG TABLETS PO SCH (22:35)
[2022-05-30] MEDS: hydrOXYzine PAMOATE 25 MG CAPSULE (FP) PO SCH ×5 (06:32→23:21)
[2022-05-30] MEDS: LORazepam 2 MG TABLET PO SCH ×4 (06:32→23:15)
[2022-05-30] MEDS: metFORMIN HCL 500 MG TABLET (FP) PO SCH (06:33)
[2022-05-30] MEDS ORDERED: OLANZapine 10 MG TABLET PO SCH (07:00)
[2022-05-30] MEDS: NICOTINE 14 MG/24 HOURS TOPICAL PATCH TD SCH (10:50)
[2022-05-30] MEDS: PRENATAL VITAMINS W/ FOLIC ACID TABLET (FP) PO SCH (10:50)
[2022-05-30] MEDS: ASPIRIN 81 MG CHEWABLE TABLETS PO SCH (10:50)
[2022-05-30] MEDS: ACETAMINOPHEN 325 MG TABLET (FP) PO PRN (18:42)
[2022-05-30] MEDS: MIRTAZAPINE 15 MG TABLET (FP) PO SCH (23:20)
[2022-05-30] MEDS: THIAMINE HCL 100 MG TABLET (FP) PO SCH (23:20)
[2022-05-30] MEDS: CARVEDILOL 25 MG TABLET (FP) PO SCH (23:20)
[2022-05-30] MEDS: MELATONIN 5 MG TABLETS PO SCH (23:20)
[2022-05-30] MEDS: OLANZapine 7.5 MG TABLET PO SCH (23:20)
[2022-05-30] MEDS: APIXABAN 5 MG TABLET PO SCH (23:20)
[2022-05-30] MEDS: ATORVASTATIN CA 40 MG TABLET (FP) PO SCH (23:21)
[2022-05-31] MEDS: LORazepam 1 MG TABLET PO SCH ×4 (05:31→22:23)
[2022-05-31] MEDS: hydrOXYzine PAMOATE 25 MG CAPSULE (FP) PO SCH ×5 (05:31→22:23)
[2022-05-31] MEDS: metFORMIN HCL 500 MG TABLET (FP) PO SCH (08:17)
[2022-05-31] MEDS: PRENATAL VITAMINS W/ FOLIC ACID TABLET (FP) PO SCH (10:31)
[2022-05-31] MEDS: APIXABAN 5 MG TABLET PO SCH ×2 (10:31→22:24)
[2022-05-31] MEDS: NICOTINE 14 MG/24 HOURS TOPICAL PATCH TD SCH (10:32)
[2022-05-31] MEDS: amLODIPine BESYLATE 10 MG TABLET (FP) PO SCH (10:32)
[2022-05-31] MEDS: ASPIRIN 81 MG CHEWABLE TABLETS PO SCH (10:32)
[2022-05-31] MEDS: CARVEDILOL 25 MG TABLET (FP) PO SCH ×2 (10:35→22:24)
[2022-05-31] MEDS: ACETAMINOPHEN 325 MG TABLET (FP) PO PRN (17:56)
[2022-05-31] MEDS: ATORVASTATIN CA 40 MG TABLET (FP) PO SCH (22:23)
[2022-05-31] MEDS: THIAMINE HCL 100 MG TABLET (FP) PO SCH (22:23)
[2022-05-31] MEDS: MIRTAZAPINE 15 MG TABLET (FP) PO SCH (22:24)
[2022-05-31] MEDS: MELATONIN 5 MG TABLETS PO SCH (22:30)
[2022-06-01] MEDS ORDERED: LORazepam 0.5 MG TABLET PO PRN
[2022-06-01] MEDS: OLANZapine 7.5 MG TABLET PO SCH ×2 (00:15→22:18)
[2022-06-01] MEDS: LORazepam 0.5 MG TABLET PO SCH ×4 (05:46→22:19)
[2022-06-01] MEDS: hydrOXYzine PAMOATE 25 MG CAPSULE (FP) PO SCH ×5 (05:46→22:19)
[2022-06-01] MEDS: metFORMIN HCL 500 MG TABLET (FP) PO SCH (08:14)
[2022-06-01] MEDS: PRENATAL VITAMINS W/ FOLIC ACID TABLET (FP) PO SCH (10:31)
[2022-06-01] MEDS: APIXABAN 5 MG TABLET PO SCH ×2 (10:32→22:19)
[2022-06-01] MEDS: ASPIRIN 81 MG CHEWABLE TABLETS PO SCH (10:32)
[2022-06-01] MEDS: amLODIPine BESYLATE 10 MG TABLET (FP) PO SCH (10:32)
[2022-06-01] MEDS: CARVEDILOL 25 MG TABLET (FP) PO SCH ×2 (10:32→22:18)
[2022-06-01] MEDS: NICOTINE 14 MG/24 HOURS TOPICAL PATCH TD SCH (10:33)
[2022-06-01] MEDS: MELATONIN 5 MG TABLETS PO SCH (22:18)
[2022-06-01] MEDS: ATORVASTATIN CA 40 MG TABLET (FP) PO SCH (22:18)
[2022-06-01] MEDS: THIAMINE HCL 100 MG TABLET (FP) PO SCH (22:18)
[2022-06-01] MEDS: MIRTAZAPINE 15 MG TABLET (FP) PO SCH (22:19)
[2022-06-02] MEDS ORDERED: LORazepam 0.5 MG TABLET PO ONE (05:00)
[2022-06-02] MEDS: hydrOXYzine PAMOATE 25 MG CAPSULE (FP) PO SCH ×2 (06:10→10:33)
[2022-06-02] MEDS: metFORMIN HCL 500 MG TABLET (FP) PO SCH (06:10)
[2022-06-02 06:19] VITALS: PULSE 74
[2022-06-02 08:45] VITALS: BP 155/76; RESP 16; TEMP 96.9
[2022-06-02] MEDS: amLODIPine BESYLATE 10 MG TABLET (FP) PO SCH (10:33)
[2022-06-02] MEDS: CARVEDILOL 25 MG TABLET (FP) PO SCH (10:33)
[2022-06-02] MEDS: APIXABAN 5 MG TABLET PO SCH (10:33)
[2022-06-02] MEDS: PRENATAL VITAMINS W/ FOLIC ACID TABLET (FP) PO SCH (10:33)
[2022-06-02] MEDS: ASPIRIN 81 MG CHEWABLE TABLETS PO SCH (10:33)
[2022-06-02] MEDS: NICOTINE 14 MG/24 HOURS TOPICAL PATCH TD SCH (10:35)
== END 2022-06-02 11:12 | disposition other institution (70) | DRG 774 ==
LOC: YASAS 09:23 → Y3N 11:00
PROVIDERS: ADMIT Allergy & Immunology; ATTEND Surgery
PROC: HZ2ZZZZ Detoxification Services for Substance Abuse Treatment (ICD-10-PCS; principal; 2022-05-29)
DX: F10.230 Alcohol dependence with withdrawal, uncomplicated (principal); F14.20 Cocaine dependence, uncomplicated; F12.20 Cannabis dependence, uncomplicated; F17.210 Nicotine dependence, cigarettes, uncomplicated; F25.9 Schizoaffective disorder, unspecified; E78.2 Mixed hyperlipidemia; G47.00 Insomnia, unspecified; I10 Essential (primary) hypertension; E11.9 Type 2 diabetes mellitus without complications; J44.9 Chronic obstructive pulmonary disease, unspecified; I82.402 Acute embolism and thrombosis of unspecified deep veins of left lower extremity; Z79.01 Long term (current) use of anticoagulants; M17.0 Bilateral primary osteoarthritis of knee; I25.2 Old myocardial infarction; Q98.4 Klinefelter syndrome, unspecified; Z88.8 Allergy status to other drugs, medicaments and biological substances; Z91.040 Latex allergy status; Z79.84 Long term (current) use of oral hypoglycemic drugs; Z99.89 Dependence on other enabling machines and devices
CPT/HCPCS: 36415; 80053; 82962; 85027; 86780; C9803-CS; U0003; U0005

== ENCOUNTER 2022-06-02 11:28 | Inpatient (IN) | payer OTHER ==
[2022-06-02] MEDS ORDERED: MELATONIN 5 MG TABLETS PO PRN (12:20)
[2022-06-02] MEDS ORDERED: MAGNESIUM HYDROX 2400MG/30ML ORAL SUSPENSION 30 ML CUP PO PRN (12:20)
[2022-06-02] MEDS ORDERED: MAGNESIUM CITRATE 300 ML BOTTLE PO PRN (12:20)
[2022-06-02] MEDS ORDERED: guaiFENesin 200 MG/10 ML 10 ML UNIT-DOSE CUPS PO PRN (12:20)
[2022-06-02] MEDS ORDERED: P-EPHED 60MG/TRIPROLIDI 2.5MG TABLET PO PRN (12:20)
[2022-06-02] MEDS ORDERED: MAG HYDROX/AL HYDROX/SIMETH 30 ML UNIT-DOSE CUP PO PRN (12:20)
[2022-06-02] MEDS ORDERED: BENZOCAINE/MENTHOL (CHLORASEPTIC ) LOZENGE MM PRN (12:20)
[2022-06-02] MEDS ORDERED: NICOTINE POLACRILEX 2 MG GUM BUC PRN (12:20)
[2022-06-02] MEDS ORDERED: IBUPROFEN 400 MG TABLET (FP) PO PRN (12:20)
[2022-06-02] MEDS: GABAPENTIN 300 MG CAPSULE PO SCH ×2 (14:23→21:19)
[2022-06-02] MEDS: ATORVASTATIN CA 40 MG TABLET (FP) PO SCH (21:19)
[2022-06-02] MEDS: APIXABAN 5 MG TABLET PO SCH (21:19)
[2022-06-02] MEDS: CALCIUM 500MG/VIT-D 200 UNITS COMBO TABLET (FP) PO SCH (21:20)
[2022-06-02] MEDS: CARVEDILOL 25 MG TABLET (FP) PO SCH (21:20)
[2022-06-02] MEDS: THIAMINE HCL 100 MG TABLET (FP) PO SCH (21:21)
[2022-06-02] MEDS ORDERED: OLANZapine 7.5 MG TABLET PO ONE (22:00)
[2022-06-03] MEDS: metFORMIN HCL 500 MG TABLET (FP) PO SCH (07:04)
[2022-06-03] MEDS: GABAPENTIN 300 MG CAPSULE PO SCH ×3 (07:04→21:12)
[2022-06-03] MEDS: hydrOXYzine PAMOATE 25 MG CAPSULE (FP) PO PRN (07:07)
[2022-06-03] MEDS: APIXABAN 5 MG TABLET PO SCH ×2 (10:46→21:13)
[2022-06-03] MEDS: CARVEDILOL 25 MG TABLET (FP) PO SCH ×2 (10:46→21:13)
[2022-06-03] MEDS: CALCIUM 500MG/VIT-D 200 UNITS COMBO TABLET (FP) PO SCH ×2 (10:46→21:13)
[2022-06-03] MEDS: ASPIRIN 81 MG CHEWABLE TABLETS PO SCH (10:46)
[2022-06-03] MEDS: PRENATAL VITAMINS W/ FOLIC ACID TABLET (FP) PO SCH (10:46)
[2022-06-03] MEDS: amLODIPine BESYLATE 10 MG TABLET (FP) PO SCH (10:46)
[2022-06-03] MEDS: THIAMINE HCL 100 MG TABLET (FP) PO SCH (21:12)
[2022-06-03] MEDS: OLANZapine 7.5 MG TABLET PO SCH (21:12)
[2022-06-03] MEDS: ATORVASTATIN CA 40 MG TABLET (FP) PO SCH (21:13)
[2022-06-03] MEDS: MIRTAZAPINE 15 MG TABLET (FP) PO SCH (21:14)
[2022-06-04] MEDS: GABAPENTIN 300 MG CAPSULE PO SCH ×3 (06:38→21:20)
[2022-06-04] MEDS: metFORMIN HCL 500 MG TABLET (FP) PO SCH (06:38)
[2022-06-04] MEDS: OLANZapine 10 MG TABLET PO SCH (06:39)
[2022-06-04] MEDS: APIXABAN 5 MG TABLET PO SCH ×2 (09:53→21:20)
[2022-06-04] MEDS: amLODIPine BESYLATE 10 MG TABLET (FP) PO SCH (09:53)
[2022-06-04] MEDS: ASPIRIN 81 MG CHEWABLE TABLETS PO SCH (09:53)
[2022-06-04] MEDS: CALCIUM 500MG/VIT-D 200 UNITS COMBO TABLET (FP) PO SCH ×2 (09:53→21:21)
[2022-06-04] MEDS: CARVEDILOL 25 MG TABLET (FP) PO SCH ×2 (09:53→21:20)
[2022-06-04] MEDS: PRENATAL VITAMINS W/ FOLIC ACID TABLET (FP) PO SCH (09:54)
[2022-06-04] MEDS: ACETAMINOPHEN 325 MG TABLET (FP) PO PRN ×2 (09:55→21:19)
[2022-06-04] MEDS: ATORVASTATIN CA 40 MG TABLET (FP) PO SCH (21:19)
[2022-06-04] MEDS: MIRTAZAPINE 15 MG TABLET (FP) PO SCH (21:20)
[2022-06-04] MEDS: THIAMINE HCL 100 MG TABLET (FP) PO SCH (21:20)
[2022-06-04] MEDS: OLANZapine 7.5 MG TABLET PO SCH (21:21)
[2022-06-05] MEDS: metFORMIN HCL 500 MG TABLET (FP) PO SCH (06:56)
[2022-06-05] MEDS: GABAPENTIN 300 MG CAPSULE PO SCH ×3 (06:56→22:03)
[2022-06-05] MEDS: OLANZapine 10 MG TABLET PO SCH (06:57)
[2022-06-05] MEDS: ACETAMINOPHEN 325 MG TABLET (FP) PO PRN (06:57)
[2022-06-05] MEDS ORDERED: LIDOCAINE 5% TOPICAL PATCH TP SCH (10:15)
[2022-06-05] MEDS: APIXABAN 5 MG TABLET PO SCH ×2 (10:47→22:03)
[2022-06-05] MEDS: CALCIUM 500MG/VIT-D 200 UNITS COMBO TABLET (FP) PO SCH ×2 (10:47→22:03)
[2022-06-05] MEDS: amLODIPine BESYLATE 10 MG TABLET (FP) PO SCH (10:47)
[2022-06-05] MEDS: ASPIRIN 81 MG CHEWABLE TABLETS PO SCH (10:47)
[2022-06-05] MEDS: PRENATAL VITAMINS W/ FOLIC ACID TABLET (FP) PO SCH (10:48)
[2022-06-05] MEDS: CARVEDILOL 25 MG TABLET (FP) PO SCH ×2 (10:48→22:03)
[2022-06-05] MEDS: METHYL SALICYLATE/MENTHOL OINT 30 GM TUBE TP SCH ×2 (13:45→22:02)
[2022-06-05] MEDS ORDERED: LIDOCAINE PATCH REMOVAL MC SCH (22:00)
[2022-06-05] MEDS: OLANZapine 7.5 MG TABLET PO SCH (22:02)
[2022-06-05] MEDS: MIRTAZAPINE 15 MG TABLET (FP) PO SCH (22:03)
[2022-06-05] MEDS: ATORVASTATIN CA 40 MG TABLET (FP) PO SCH (22:03)
[2022-06-05] MEDS: THIAMINE HCL 100 MG TABLET (FP) PO SCH (22:03)
[2022-06-06] MEDS: OLANZapine 10 MG TABLET PO SCH (06:22)
[2022-06-06] MEDS: metFORMIN HCL 500 MG TABLET (FP) PO SCH (06:23)
[2022-06-06] MEDS: GABAPENTIN 300 MG CAPSULE PO SCH ×3 (06:23→21:41)
[2022-06-06] MEDS: PRENATAL VITAMINS W/ FOLIC ACID TABLET (FP) PO SCH (11:10)
[2022-06-06] MEDS: METHYL SALICYLATE/MENTHOL OINT 30 GM TUBE TP SCH ×2 (11:10→22:03)
[2022-06-06] MEDS: CARVEDILOL 25 MG TABLET (FP) PO SCH ×2 (11:10→21:46)
[2022-06-06] MEDS: ASPIRIN 81 MG CHEWABLE TABLETS PO SCH (11:10)
[2022-06-06] MEDS: CALCIUM 500MG/VIT-D 200 UNITS COMBO TABLET (FP) PO SCH ×2 (11:10→21:41)
[2022-06-06] MEDS: APIXABAN 5 MG TABLET PO SCH ×2 (11:10→21:43)
[2022-06-06] MEDS: amLODIPine BESYLATE 10 MG TABLET (FP) PO SCH (11:10)
[2022-06-06] MEDS: OLANZapine 7.5 MG TABLET PO SCH (21:42)
[2022-06-06] MEDS: MIRTAZAPINE 15 MG TABLET (FP) PO SCH (21:43)
[2022-06-06] MEDS: THIAMINE HCL 100 MG TABLET (FP) PO SCH (21:43)
[2022-06-06] MEDS: ATORVASTATIN CA 40 MG TABLET (FP) PO SCH (21:43)
[2022-06-07] MEDS: OLANZapine 10 MG TABLET PO SCH (06:24)
[2022-06-07] MEDS: metFORMIN HCL 500 MG TABLET (FP) PO SCH (06:25)
[2022-06-07] MEDS: GABAPENTIN 300 MG CAPSULE PO SCH ×3 (06:25→21:53)
[2022-06-07] MEDS: APIXABAN 5 MG TABLET PO SCH ×2 (10:32→21:54)
[2022-06-07] MEDS: ASPIRIN 81 MG CHEWABLE TABLETS PO SCH (10:32)
[2022-06-07] MEDS: PRENATAL VITAMINS W/ FOLIC ACID TABLET (FP) PO SCH (10:32)
[2022-06-07] MEDS: CARVEDILOL 25 MG TABLET (FP) PO SCH ×2 (10:33→21:53)
[2022-06-07] MEDS: amLODIPine BESYLATE 10 MG TABLET (FP) PO SCH (10:33)
[2022-06-07] MEDS: CALCIUM 500MG/VIT-D 200 UNITS COMBO TABLET (FP) PO SCH ×2 (10:33→21:53)
[2022-06-07] MEDS: METHYL SALICYLATE/MENTHOL OINT 30 GM TUBE TP SCH ×2 (10:34→21:54)
[2022-06-07] MEDS: MIRTAZAPINE 15 MG TABLET (FP) PO SCH (21:53)
[2022-06-07] MEDS: OLANZapine 7.5 MG TABLET PO SCH (21:53)
[2022-06-07] MEDS: ATORVASTATIN CA 40 MG TABLET (FP) PO SCH (21:54)
[2022-06-07] MEDS: THIAMINE HCL 100 MG TABLET (FP) PO SCH (21:54)
[2022-06-08] MEDS: GABAPENTIN 300 MG CAPSULE PO SCH ×3 (06:27→21:16)
[2022-06-08] MEDS: OLANZapine 10 MG TABLET PO SCH (06:27)
[2022-06-08] MEDS: metFORMIN HCL 500 MG TABLET (FP) PO SCH (06:27)
[2022-06-08] MEDS: ASPIRIN 81 MG CHEWABLE TABLETS PO SCH (09:53)
[2022-06-08] MEDS: METHYL SALICYLATE/MENTHOL OINT 30 GM TUBE TP SCH ×2 (09:53→21:17)
[2022-06-08] MEDS: CARVEDILOL 25 MG TABLET (FP) PO SCH ×2 (09:55→21:17)
[2022-06-08] MEDS: CALCIUM 500MG/VIT-D 200 UNITS COMBO TABLET (FP) PO SCH ×2 (09:55→21:17)
[2022-06-08] MEDS: APIXABAN 5 MG TABLET PO SCH ×2 (09:55→21:16)
[2022-06-08] MEDS: PRENATAL VITAMINS W/ FOLIC ACID TABLET (FP) PO SCH (09:56)
[2022-06-08] MEDS: amLODIPine BESYLATE 10 MG TABLET (FP) PO SCH (10:44)
[2022-06-08] MEDS: ATORVASTATIN CA 40 MG TABLET (FP) PO SCH (21:16)
[2022-06-08] MEDS: MIRTAZAPINE 15 MG TABLET (FP) PO SCH (21:16)
[2022-06-08] MEDS: OLANZapine 7.5 MG TABLET PO SCH (21:17)
[2022-06-08] MEDS: THIAMINE HCL 100 MG TABLET (FP) PO SCH (22:55)
[2022-06-09] MEDS: OLANZapine 10 MG TABLET PO SCH (06:54)
[2022-06-09] MEDS: GABAPENTIN 300 MG CAPSULE PO SCH ×3 (06:54→21:13)
[2022-06-09] MEDS: metFORMIN HCL 500 MG TABLET (FP) PO SCH (06:54)
[2022-06-09] MEDS: amLODIPine BESYLATE 10 MG TABLET (FP) PO SCH (10:43)
[2022-06-09] MEDS: PRENATAL VITAMINS W/ FOLIC ACID TABLET (FP) PO SCH (10:43)
[2022-06-09] MEDS: CALCIUM 500MG/VIT-D 200 UNITS COMBO TABLET (FP) PO SCH ×2 (10:43→21:14)
[2022-06-09] MEDS: CARVEDILOL 25 MG TABLET (FP) PO SCH ×2 (10:43→21:14)
[2022-06-09] MEDS: ASPIRIN 81 MG CHEWABLE TABLETS PO SCH (10:45)
[2022-06-09] MEDS: METHYL SALICYLATE/MENTHOL OINT 30 GM TUBE TP SCH ×2 (10:45→21:12)
[2022-06-09] MEDS: APIXABAN 5 MG TABLET PO SCH ×2 (12:19→21:13)
[2022-06-09] MEDS: OLANZapine 7.5 MG TABLET PO SCH (21:13)
[2022-06-09] MEDS: THIAMINE HCL 100 MG TABLET (FP) PO SCH (21:13)
[2022-06-09] MEDS: MIRTAZAPINE 15 MG TABLET (FP) PO SCH (21:13)
[2022-06-09] MEDS: ATORVASTATIN CA 40 MG TABLET (FP) PO SCH (21:14)
[2022-06-10] MEDS: OLANZapine 10 MG TABLET PO SCH (06:32)
[2022-06-10] MEDS: GABAPENTIN 300 MG CAPSULE PO SCH ×3 (06:32→21:43)
[2022-06-10] MEDS: metFORMIN HCL 500 MG TABLET (FP) PO SCH (06:32)
[2022-06-10] MEDS: APIXABAN 5 MG TABLET PO SCH ×2 (09:33→21:43)
[2022-06-10] MEDS: CARVEDILOL 25 MG TABLET (FP) PO SCH ×2 (09:33→21:43)
[2022-06-10] MEDS: CALCIUM 500MG/VIT-D 200 UNITS COMBO TABLET (FP) PO SCH ×2 (09:33→21:43)
[2022-06-10] MEDS: PRENATAL VITAMINS W/ FOLIC ACID TABLET (FP) PO SCH (09:34)
[2022-06-10] MEDS: amLODIPine BESYLATE 10 MG TABLET (FP) PO SCH (09:34)
[2022-06-10] MEDS: ASPIRIN 81 MG CHEWABLE TABLETS PO SCH (09:34)
[2022-06-10] MEDS: METHYL SALICYLATE/MENTHOL OINT 30 GM TUBE TP SCH ×2 (10:02→21:43)
[2022-06-10] MEDS: OLANZapine 7.5 MG TABLET PO SCH (21:42)
[2022-06-10] MEDS: ATORVASTATIN CA 40 MG TABLET (FP) PO SCH (21:43)
[2022-06-10] MEDS: THIAMINE HCL 100 MG TABLET (FP) PO SCH (21:43)
[2022-06-10] MEDS: MIRTAZAPINE 15 MG TABLET (FP) PO SCH (21:43)
[2022-06-11] MEDS: OLANZapine 10 MG TABLET PO SCH (06:46)
[2022-06-11] MEDS: GABAPENTIN 300 MG CAPSULE PO SCH ×3 (06:46→21:42)
[2022-06-11] MEDS: metFORMIN HCL 500 MG TABLET (FP) PO SCH (06:47)
[2022-06-11] MEDS: ASPIRIN 81 MG CHEWABLE TABLETS PO SCH (10:10)
[2022-06-11] MEDS: APIXABAN 5 MG TABLET PO SCH ×2 (10:10→21:42)
[2022-06-11] MEDS: CARVEDILOL 25 MG TABLET (FP) PO SCH ×2 (10:10→21:45)
[2022-06-11] MEDS: METHYL SALICYLATE/MENTHOL OINT 30 GM TUBE TP SCH ×2 (10:10→21:42)
[2022-06-11] MEDS: NICOTINE 7 MG/24 HOURS TOPICAL PATCH TD SCH (10:10)
[2022-06-11] MEDS: CALCIUM 500MG/VIT-D 200 UNITS COMBO TABLET (FP) PO SCH ×2 (10:10→21:43)
[2022-06-11] MEDS: amLODIPine BESYLATE 10 MG TABLET (FP) PO SCH (10:10)
[2022-06-11] MEDS: PRENATAL VITAMINS W/ FOLIC ACID TABLET (FP) PO SCH (10:11)
[2022-06-11] MEDS: MIRTAZAPINE 15 MG TABLET (FP) PO SCH (21:43)
[2022-06-11] MEDS: OLANZapine 7.5 MG TABLET PO SCH (21:43)
[2022-06-11] MEDS: THIAMINE HCL 100 MG TABLET (FP) PO SCH (21:43)
[2022-06-11] MEDS: ATORVASTATIN CA 40 MG TABLET (FP) PO SCH (21:44)
[2022-06-12] MEDS: OLANZapine 10 MG TABLET PO SCH (06:18)
[2022-06-12] MEDS: GABAPENTIN 300 MG CAPSULE PO SCH ×3 (06:18→21:51)
[2022-06-12] MEDS: metFORMIN HCL 500 MG TABLET (FP) PO SCH (06:18)
[2022-06-12] MEDS: CALCIUM 500MG/VIT-D 200 UNITS COMBO TABLET (FP) PO SCH ×2 (09:34→21:52)
[2022-06-12] MEDS: ASPIRIN 81 MG CHEWABLE TABLETS PO SCH (09:34)
[2022-06-12] MEDS: NICOTINE 7 MG/24 HOURS TOPICAL PATCH TD SCH (09:34)
[2022-06-12] MEDS: APIXABAN 5 MG TABLET PO SCH ×2 (09:34→21:51)
[2022-06-12] MEDS: amLODIPine BESYLATE 10 MG TABLET (FP) PO SCH (09:34)
[2022-06-12] MEDS: CARVEDILOL 25 MG TABLET (FP) PO SCH ×2 (09:34→21:53)
[2022-06-12] MEDS: METHYL SALICYLATE/MENTHOL OINT 30 GM TUBE TP SCH ×2 (09:35→21:53)
[2022-06-12] MEDS: PRENATAL VITAMINS W/ FOLIC ACID TABLET (FP) PO SCH (09:35)
[2022-06-12] MEDS ORDERED: VITAMINS A AND D TOPICAL OINTMENT 60 GM TUBE TP PRN (14:02)
[2022-06-12] MEDS: THIAMINE HCL 100 MG TABLET (FP) PO SCH (21:50)
[2022-06-12] MEDS: ATORVASTATIN CA 40 MG TABLET (FP) PO SCH (21:51)
[2022-06-12] MEDS: MIRTAZAPINE 15 MG TABLET (FP) PO SCH (21:51)
[2022-06-12] MEDS: OLANZapine 7.5 MG TABLET PO SCH (21:53)
[2022-06-13] MEDS: metFORMIN HCL 500 MG TABLET (FP) PO SCH (06:28)
[2022-06-13] MEDS: OLANZapine 10 MG TABLET PO SCH (06:28)
[2022-06-13] MEDS: GABAPENTIN 300 MG CAPSULE PO SCH ×3 (06:28→21:13)
[2022-06-13] MEDS: APIXABAN 5 MG TABLET PO SCH ×2 (09:56→21:13)
[2022-06-13] MEDS: PRENATAL VITAMINS W/ FOLIC ACID TABLET (FP) PO SCH (09:56)
[2022-06-13] MEDS: ASPIRIN 81 MG CHEWABLE TABLETS PO SCH (09:57)
[2022-06-13] MEDS: NICOTINE 7 MG/24 HOURS TOPICAL PATCH TD SCH (09:57)
[2022-06-13] MEDS: CARVEDILOL 25 MG TABLET (FP) PO SCH ×2 (09:57→21:14)
[2022-06-13] MEDS: METHYL SALICYLATE/MENTHOL OINT 30 GM TUBE TP SCH ×2 (09:57→21:12)
[2022-06-13] MEDS: CALCIUM 500MG/VIT-D 200 UNITS COMBO TABLET (FP) PO SCH ×2 (09:57→21:16)
[2022-06-13] MEDS: amLODIPine BESYLATE 10 MG TABLET (FP) PO SCH (09:57)
[2022-06-13] MEDS: THIAMINE HCL 100 MG TABLET (FP) PO SCH (21:12)
[2022-06-13] MEDS: ATORVASTATIN CA 40 MG TABLET (FP) PO SCH (21:13)
[2022-06-13] MEDS: MIRTAZAPINE 15 MG TABLET (FP) PO SCH (21:13)
[2022-06-13] MEDS: OLANZapine 7.5 MG TABLET PO SCH (21:14)
[2022-06-14] MEDS: GABAPENTIN 300 MG CAPSULE PO SCH ×3 (06:34→21:17)
[2022-06-14] MEDS: OLANZapine 10 MG TABLET PO SCH (06:35)
[2022-06-14] MEDS: metFORMIN HCL 500 MG TABLET (FP) PO SCH (06:35)
[2022-06-14] MEDS: CALCIUM 500MG/VIT-D 200 UNITS COMBO TABLET (FP) PO SCH ×2 (09:19→21:18)
[2022-06-14] MEDS: NICOTINE 7 MG/24 HOURS TOPICAL PATCH TD SCH (09:19)
[2022-06-14] MEDS: amLODIPine BESYLATE 10 MG TABLET (FP) PO SCH (09:19)
[2022-06-14] MEDS: APIXABAN 5 MG TABLET PO SCH ×2 (09:19→21:18)
[2022-06-14] MEDS: ASPIRIN 81 MG CHEWABLE TABLETS PO SCH (09:19)
[2022-06-14] MEDS: PRENATAL VITAMINS W/ FOLIC ACID TABLET (FP) PO SCH (09:19)
[2022-06-14] MEDS: CARVEDILOL 25 MG TABLET (FP) PO SCH ×2 (09:20→21:18)
[2022-06-14] MEDS: METHYL SALICYLATE/MENTHOL OINT 30 GM TUBE TP SCH ×2 (09:20→21:17)
[2022-06-14] MEDS: ACETAMINOPHEN 325 MG TABLET (FP) PO PRN (09:21)
[2022-06-14] MEDS: MIRTAZAPINE 15 MG TABLET (FP) PO SCH (21:17)
[2022-06-14] MEDS: OLANZapine 7.5 MG TABLET PO SCH (21:17)
[2022-06-14] MEDS: THIAMINE HCL 100 MG TABLET (FP) PO SCH (21:17)
[2022-06-14] MEDS: ATORVASTATIN CA 40 MG TABLET (FP) PO SCH (21:17)
[2022-06-15] MEDS: GABAPENTIN 300 MG CAPSULE PO SCH ×3 (06:47→21:31)
[2022-06-15] MEDS: OLANZapine 10 MG TABLET PO SCH (06:47)
[2022-06-15] MEDS: metFORMIN HCL 500 MG TABLET (FP) PO SCH (06:50)
[2022-06-15] MEDS: ASPIRIN 81 MG CHEWABLE TABLETS PO SCH (10:31)
[2022-06-15] MEDS: amLODIPine BESYLATE 10 MG TABLET (FP) PO SCH (10:31)
[2022-06-15] MEDS: NICOTINE 7 MG/24 HOURS TOPICAL PATCH TD SCH (10:31)
[2022-06-15] MEDS: APIXABAN 5 MG TABLET PO SCH ×2 (10:31→21:31)
[2022-06-15] MEDS: CALCIUM 500MG/VIT-D 200 UNITS COMBO TABLET (FP) PO SCH ×2 (10:32→21:31)
[2022-06-15] MEDS: METHYL SALICYLATE/MENTHOL OINT 30 GM TUBE TP SCH ×2 (10:32→21:33)
[2022-06-15] MEDS: CARVEDILOL 25 MG TABLET (FP) PO SCH ×2 (10:32→21:33)
[2022-06-15] MEDS: PRENATAL VITAMINS W/ FOLIC ACID TABLET (FP) PO SCH (10:32)
[2022-06-15] MEDS: MIRTAZAPINE 15 MG TABLET (FP) PO SCH (21:31)
[2022-06-15] MEDS: OLANZapine 7.5 MG TABLET PO SCH (21:31)
[2022-06-15] MEDS: ATORVASTATIN CA 40 MG TABLET (FP) PO SCH (21:31)
[2022-06-15] MEDS: THIAMINE HCL 100 MG TABLET (FP) PO SCH (21:31)
[2022-06-16] MEDS: metFORMIN HCL 500 MG TABLET (FP) PO SCH (07:02)
[2022-06-16] MEDS: GABAPENTIN 300 MG CAPSULE PO SCH ×3 (07:02→21:08)
[2022-06-16] MEDS: OLANZapine 10 MG TABLET PO SCH (07:02)
[2022-06-16] MEDS: ASPIRIN 81 MG CHEWABLE TABLETS PO SCH (09:59)
[2022-06-16] MEDS: CARVEDILOL 25 MG TABLET (FP) PO SCH ×2 (09:59→21:07)
[2022-06-16] MEDS: APIXABAN 5 MG TABLET PO SCH ×2 (09:59→21:07)
[2022-06-16] MEDS: amLODIPine BESYLATE 10 MG TABLET (FP) PO SCH (09:59)
[2022-06-16] MEDS: PRENATAL VITAMINS W/ FOLIC ACID TABLET (FP) PO SCH (10:00)
[2022-06-16] MEDS: CALCIUM 500MG/VIT-D 200 UNITS COMBO TABLET (FP) PO SCH ×2 (10:01→21:07)
[2022-06-16] MEDS: NICOTINE 7 MG/24 HOURS TOPICAL PATCH TD SCH (11:04)
[2022-06-16] MEDS: METHYL SALICYLATE/MENTHOL OINT 30 GM TUBE TP SCH ×2 (11:04→23:59)
[2022-06-16] MEDS: MIRTAZAPINE 15 MG TABLET (FP) PO SCH (21:07)
[2022-06-16] MEDS: ATORVASTATIN CA 40 MG TABLET (FP) PO SCH (21:07)
[2022-06-16] MEDS: OLANZapine 7.5 MG TABLET PO SCH (21:08)
[2022-06-16] MEDS: THIAMINE HCL 100 MG TABLET (FP) PO SCH (21:08)
[2022-06-17] MEDS: GABAPENTIN 300 MG CAPSULE PO SCH ×3 (06:24→21:55)
[2022-06-17] MEDS: metFORMIN HCL 500 MG TABLET (FP) PO SCH (06:24)
[2022-06-17] MEDS: OLANZapine 10 MG TABLET PO SCH (06:24)
[2022-06-17] MEDS: LOPERAMIDE HCL 2 MG CAPSULE PO PRN (09:27)
[2022-06-17] MEDS: ASPIRIN 81 MG CHEWABLE TABLETS PO SCH (09:27)
[2022-06-17] MEDS: PRENATAL VITAMINS W/ FOLIC ACID TABLET (FP) PO SCH (09:27)
[2022-06-17] MEDS: APIXABAN 5 MG TABLET PO SCH ×2 (09:27→21:56)
[2022-06-17] MEDS: CALCIUM 500MG/VIT-D 200 UNITS COMBO TABLET (FP) PO SCH ×2 (09:29→21:57)
[2022-06-17] MEDS: amLODIPine BESYLATE 10 MG TABLET (FP) PO SCH (09:29)
[2022-06-17] MEDS: METHYL SALICYLATE/MENTHOL OINT 30 GM TUBE TP SCH ×2 (09:32→22:18)
[2022-06-17] MEDS: NICOTINE 7 MG/24 HOURS TOPICAL PATCH TD SCH (09:32)
[2022-06-17] MEDS: CARVEDILOL 25 MG TABLET (FP) PO SCH ×2 (11:16→21:56)
[2022-06-17] MEDS: ATORVASTATIN CA 40 MG TABLET (FP) PO SCH (21:56)
[2022-06-17] MEDS: THIAMINE HCL 100 MG TABLET (FP) PO SCH (21:56)
[2022-06-17] MEDS: ACETAMINOPHEN 325 MG TABLET (FP) PO PRN (21:56)
[2022-06-17] MEDS: OLANZapine 7.5 MG TABLET PO SCH (21:58)
[2022-06-17] MEDS: MIRTAZAPINE 15 MG TABLET (FP) PO SCH (21:58)
[2022-06-18] MEDS: OLANZapine 10 MG TABLET PO SCH (06:09)
[2022-06-18] MEDS: metFORMIN HCL 500 MG TABLET (FP) PO SCH (06:09)
[2022-06-18] MEDS: GABAPENTIN 300 MG CAPSULE PO SCH ×3 (06:09→21:05)
[2022-06-18] MEDS: METHYL SALICYLATE/MENTHOL OINT 30 GM TUBE TP SCH ×2 (11:08→21:08)
[2022-06-18] MEDS: ASPIRIN 81 MG CHEWABLE TABLETS PO SCH (11:08)
[2022-06-18] MEDS: PRENATAL VITAMINS W/ FOLIC ACID TABLET (FP) PO SCH (11:09)
[2022-06-18] MEDS: APIXABAN 5 MG TABLET PO SCH ×2 (11:09→21:06)
[2022-06-18] MEDS: NICOTINE 7 MG/24 HOURS TOPICAL PATCH TD SCH (11:09)
[2022-06-18] MEDS: CARVEDILOL 25 MG TABLET (FP) PO SCH ×2 (11:09→21:07)
[2022-06-18] MEDS: amLODIPine BESYLATE 10 MG TABLET (FP) PO SCH (11:09)
[2022-06-18] MEDS: CALCIUM 500MG/VIT-D 200 UNITS COMBO TABLET (FP) PO SCH ×2 (11:34→21:06)
[2022-06-18] MEDS: OLANZapine 7.5 MG TABLET PO SCH (21:05)
[2022-06-18] MEDS: THIAMINE HCL 100 MG TABLET (FP) PO SCH (21:06)
[2022-06-18] MEDS: ATORVASTATIN CA 40 MG TABLET (FP) PO SCH (21:06)
[2022-06-18] MEDS: MIRTAZAPINE 15 MG TABLET (FP) PO SCH (21:06)
[2022-06-19] MEDS: OLANZapine 10 MG TABLET PO SCH (06:34)
[2022-06-19] MEDS: metFORMIN HCL 500 MG TABLET (FP) PO SCH (06:34)
[2022-06-19] MEDS: GABAPENTIN 300 MG CAPSULE PO SCH ×3 (06:34→21:33)
[2022-06-19] MEDS: CARVEDILOL 25 MG TABLET (FP) PO SCH ×2 (10:17→21:35)
[2022-06-19] MEDS: ASPIRIN 81 MG CHEWABLE TABLETS PO SCH (10:17)
[2022-06-19] MEDS: APIXABAN 5 MG TABLET PO SCH ×2 (10:18→21:33)
[2022-06-19] MEDS: CALCIUM 500MG/VIT-D 200 UNITS COMBO TABLET (FP) PO SCH ×2 (10:18→21:36)
[2022-06-19] MEDS: NALTREXONE HCL 50 MG TABLET PO SCH (10:18)
[2022-06-19] MEDS: amLODIPine BESYLATE 10 MG TABLET (FP) PO SCH (10:18)
[2022-06-19] MEDS: NICOTINE 7 MG/24 HOURS TOPICAL PATCH TD SCH (10:18)
[2022-06-19] MEDS: PRENATAL VITAMINS W/ FOLIC ACID TABLET (FP) PO SCH (10:18)
[2022-06-19] MEDS: METHYL SALICYLATE/MENTHOL OINT 30 GM TUBE TP SCH ×2 (14:58→21:35)
[2022-06-19] MEDS: ATORVASTATIN CA 40 MG TABLET (FP) PO SCH (21:33)
[2022-06-19] MEDS: THIAMINE HCL 100 MG TABLET (FP) PO SCH (21:33)
[2022-06-19] MEDS: MIRTAZAPINE 15 MG TABLET (FP) PO SCH (21:33)
[2022-06-19] MEDS: OLANZapine 7.5 MG TABLET PO SCH (21:36)
[2022-06-20] MEDS: metFORMIN HCL 500 MG TABLET (FP) PO SCH (06:18)
[2022-06-20] MEDS: OLANZapine 10 MG TABLET PO SCH (06:18)
[2022-06-20] MEDS: GABAPENTIN 300 MG CAPSULE PO SCH ×3 (06:18→21:23)
[2022-06-20] MEDS: APIXABAN 5 MG TABLET PO SCH ×2 (11:00→21:24)
[2022-06-20] MEDS: ASPIRIN 81 MG CHEWABLE TABLETS PO SCH (11:00)
[2022-06-20] MEDS: amLODIPine BESYLATE 10 MG TABLET (FP) PO SCH (11:00)
[2022-06-20] MEDS: NALTREXONE HCL 50 MG TABLET PO SCH (11:00)
[2022-06-20] MEDS: NICOTINE 7 MG/24 HOURS TOPICAL PATCH TD SCH (11:01)
[2022-06-20] MEDS: CALCIUM 500MG/VIT-D 200 UNITS COMBO TABLET (FP) PO SCH ×2 (11:01→21:23)
[2022-06-20] MEDS: CARVEDILOL 25 MG TABLET (FP) PO SCH ×2 (11:01→21:23)
[2022-06-20] MEDS: METHYL SALICYLATE/MENTHOL OINT 30 GM TUBE TP SCH ×2 (11:01→21:25)
[2022-06-20] MEDS: PRENATAL VITAMINS W/ FOLIC ACID TABLET (FP) PO SCH (11:01)
[2022-06-20] MEDS: MIRTAZAPINE 15 MG TABLET (FP) PO SCH (21:23)
[2022-06-20] MEDS: ATORVASTATIN CA 40 MG TABLET (FP) PO SCH (21:23)
[2022-06-20] MEDS: OLANZapine 7.5 MG TABLET PO SCH (21:24)
[2022-06-20] MEDS: THIAMINE HCL 100 MG TABLET (FP) PO SCH (21:24)
[2022-06-21] MEDS: GABAPENTIN 300 MG CAPSULE PO SCH ×3 (06:22→21:34)
[2022-06-21] MEDS: metFORMIN HCL 500 MG TABLET (FP) PO SCH (06:22)
[2022-06-21] MEDS: OLANZapine 10 MG TABLET PO SCH (06:22)
[2022-06-21] MEDS: CALCIUM 500MG/VIT-D 200 UNITS COMBO TABLET (FP) PO SCH ×2 (09:39→21:33)
[2022-06-21] MEDS: CARVEDILOL 25 MG TABLET (FP) PO SCH ×2 (09:39→21:34)
[2022-06-21] MEDS: ASPIRIN 81 MG CHEWABLE TABLETS PO SCH (09:39)
[2022-06-21] MEDS: NALTREXONE HCL 50 MG TABLET PO SCH (09:39)
[2022-06-21] MEDS: APIXABAN 5 MG TABLET PO SCH ×2 (09:39→21:34)
[2022-06-21] MEDS: PRENATAL VITAMINS W/ FOLIC ACID TABLET (FP) PO SCH (09:39)
[2022-06-21] MEDS: METHYL SALICYLATE/MENTHOL OINT 30 GM TUBE TP SCH ×2 (09:40→21:35)
[2022-06-21] MEDS: amLODIPine BESYLATE 10 MG TABLET (FP) PO SCH (09:40)
[2022-06-21] MEDS: NICOTINE 7 MG/24 HOURS TOPICAL PATCH TD SCH (11:38)
[2022-06-21] MEDS: ATORVASTATIN CA 40 MG TABLET (FP) PO SCH (21:34)
[2022-06-21] MEDS: THIAMINE HCL 100 MG TABLET (FP) PO SCH (21:34)
[2022-06-21] MEDS: OLANZapine 7.5 MG TABLET PO SCH (21:34)
[2022-06-21] MEDS: MIRTAZAPINE 15 MG TABLET (FP) PO SCH (21:35)
[2022-06-22] MEDS: OLANZapine 10 MG TABLET PO SCH (06:50)
[2022-06-22] MEDS: metFORMIN HCL 500 MG TABLET (FP) PO SCH (06:50)
[2022-06-22] MEDS: GABAPENTIN 300 MG CAPSULE PO SCH ×3 (06:50→21:53)
[2022-06-22] MEDS: amLODIPine BESYLATE 10 MG TABLET (FP) PO SCH (11:18)
[2022-06-22] MEDS: CARVEDILOL 25 MG TABLET (FP) PO SCH ×2 (11:19→21:54)
[2022-06-22] MEDS: APIXABAN 5 MG TABLET PO SCH ×2 (11:19→21:54)
[2022-06-22] MEDS: NALTREXONE HCL 50 MG TABLET PO SCH (11:19)
[2022-06-22] MEDS: CALCIUM 500MG/VIT-D 200 UNITS COMBO TABLET (FP) PO SCH ×2 (11:19→21:53)
[2022-06-22] MEDS: PRENATAL VITAMINS W/ FOLIC ACID TABLET (FP) PO SCH (11:19)
[2022-06-22] MEDS: ASPIRIN 81 MG CHEWABLE TABLETS PO SCH (11:26)
[2022-06-22] MEDS: ACETAMINOPHEN 325 MG TABLET (FP) PO PRN (11:26)
[2022-06-22] MEDS: NICOTINE 7 MG/24 HOURS TOPICAL PATCH TD SCH (11:28)
[2022-06-22] MEDS: METHYL SALICYLATE/MENTHOL OINT 30 GM TUBE TP SCH ×2 (12:04→21:55)
[2022-06-22] MEDS: MIRTAZAPINE 15 MG TABLET (FP) PO SCH (21:54)
[2022-06-22] MEDS: ATORVASTATIN CA 40 MG TABLET (FP) PO SCH (21:54)
[2022-06-22] MEDS: OLANZapine 7.5 MG TABLET PO SCH (21:54)
[2022-06-22] MEDS: THIAMINE HCL 100 MG TABLET (FP) PO SCH (21:54)
[2022-06-23] MEDS: GABAPENTIN 300 MG CAPSULE PO SCH ×3 (06:27→21:34)
[2022-06-23] MEDS: OLANZapine 10 MG TABLET PO SCH (06:27)
[2022-06-23] MEDS: metFORMIN HCL 500 MG TABLET (FP) PO SCH (06:27)
[2022-06-23] MEDS: CALCIUM 500MG/VIT-D 200 UNITS COMBO TABLET (FP) PO SCH ×2 (10:08→21:35)
[2022-06-23] MEDS: ASPIRIN 81 MG CHEWABLE TABLETS PO SCH (10:08)
[2022-06-23] MEDS: CARVEDILOL 25 MG TABLET (FP) PO SCH ×2 (10:08→21:34)
[2022-06-23] MEDS: APIXABAN 5 MG TABLET PO SCH ×2 (10:08→21:34)
[2022-06-23] MEDS: PRENATAL VITAMINS W/ FOLIC ACID TABLET (FP) PO SCH (10:08)
[2022-06-23] MEDS: amLODIPine BESYLATE 10 MG TABLET (FP) PO SCH (10:08)
[2022-06-23] MEDS: NICOTINE 7 MG/24 HOURS TOPICAL PATCH TD SCH (10:08)
[2022-06-23] MEDS: NALTREXONE HCL 50 MG TABLET PO SCH (10:08)
[2022-06-23] MEDS: METHYL SALICYLATE/MENTHOL OINT 30 GM TUBE TP SCH ×2 (10:11→21:33)
[2022-06-23] MEDS: ATORVASTATIN CA 40 MG TABLET (FP) PO SCH (21:34)
[2022-06-23] MEDS: THIAMINE HCL 100 MG TABLET (FP) PO SCH (21:35)
[2022-06-23] MEDS: OLANZapine 7.5 MG TABLET PO SCH (21:36)
[2022-06-23] MEDS: MIRTAZAPINE 15 MG TABLET (FP) PO SCH (22:09)
[2022-06-24] MEDS: GABAPENTIN 300 MG CAPSULE PO SCH ×3 (06:40→21:28)
[2022-06-24] MEDS: OLANZapine 10 MG TABLET PO SCH (06:40)
[2022-06-24] MEDS: metFORMIN HCL 500 MG TABLET (FP) PO SCH (06:40)
[2022-06-24] MEDS: APIXABAN 5 MG TABLET PO SCH ×2 (10:41→21:28)
[2022-06-24] MEDS: PRENATAL VITAMINS W/ FOLIC ACID TABLET (FP) PO SCH (10:41)
[2022-06-24] MEDS: ASPIRIN 81 MG CHEWABLE TABLETS PO SCH (10:41)
[2022-06-24] MEDS: NALTREXONE HCL 50 MG TABLET PO SCH (10:41)
[2022-06-24] MEDS: amLODIPine BESYLATE 10 MG TABLET (FP) PO SCH (10:42)
[2022-06-24] MEDS: NICOTINE 7 MG/24 HOURS TOPICAL PATCH TD SCH (10:42)
[2022-06-24] MEDS: CALCIUM 500MG/VIT-D 200 UNITS COMBO TABLET (FP) PO SCH ×2 (10:42→21:28)
[2022-06-24] MEDS: CARVEDILOL 25 MG TABLET (FP) PO SCH ×2 (10:43→21:29)
[2022-06-24] MEDS: METHYL SALICYLATE/MENTHOL OINT 30 GM TUBE TP SCH ×2 (10:44→21:29)
[2022-06-24] MEDS: ATORVASTATIN CA 40 MG TABLET (FP) PO SCH (21:28)
[2022-06-24] MEDS: MIRTAZAPINE 15 MG TABLET (FP) PO SCH (21:28)
[2022-06-24] MEDS: OLANZapine 7.5 MG TABLET PO SCH (21:29)
[2022-06-24] MEDS: THIAMINE HCL 100 MG TABLET (FP) PO SCH (21:29)
[2022-06-25] MEDS: metFORMIN HCL 500 MG TABLET (FP) PO SCH (06:17)
[2022-06-25] MEDS: GABAPENTIN 300 MG CAPSULE PO SCH ×3 (06:17→21:35)
[2022-06-25] MEDS: OLANZapine 10 MG TABLET PO SCH (06:40)
[2022-06-25] MEDS: NALTREXONE HCL 50 MG TABLET PO SCH (09:57)
[2022-06-25] MEDS: APIXABAN 5 MG TABLET PO SCH ×2 (09:57→21:34)
[2022-06-25] MEDS: PRENATAL VITAMINS W/ FOLIC ACID TABLET (FP) PO SCH (09:57)
[2022-06-25] MEDS: amLODIPine BESYLATE 10 MG TABLET (FP) PO SCH (09:57)
[2022-06-25] MEDS: ASPIRIN 81 MG CHEWABLE TABLETS PO SCH (09:58)
[2022-06-25] MEDS: NICOTINE 7 MG/24 HOURS TOPICAL PATCH TD SCH (09:58)
[2022-06-25] MEDS: CARVEDILOL 25 MG TABLET (FP) PO SCH ×2 (09:58→21:35)
[2022-06-25] MEDS: METHYL SALICYLATE/MENTHOL OINT 30 GM TUBE TP SCH ×2 (09:58→21:36)
[2022-06-25] MEDS: ACETAMINOPHEN 325 MG TABLET (FP) PO PRN (10:00)
[2022-06-25] MEDS: hydrOXYzine PAMOATE 25 MG CAPSULE (FP) PO PRN (10:00)
[2022-06-25] MEDS: CALCIUM 500MG/VIT-D 200 UNITS COMBO TABLET (FP) PO SCH ×2 (14:12→21:35)
[2022-06-25] MEDS: OLANZapine 7.5 MG TABLET PO SCH (21:35)
[2022-06-25] MEDS: MIRTAZAPINE 15 MG TABLET (FP) PO SCH (21:35)
[2022-06-25] MEDS: ATORVASTATIN CA 40 MG TABLET (FP) PO SCH (21:35)
[2022-06-25] MEDS: THIAMINE HCL 100 MG TABLET (FP) PO SCH (21:36)
[2022-06-26] MEDS: GABAPENTIN 300 MG CAPSULE PO SCH ×3 (05:58→21:44)
[2022-06-26] MEDS: metFORMIN HCL 500 MG TABLET (FP) PO SCH (05:59)
[2022-06-26] MEDS: OLANZapine 10 MG TABLET PO SCH ×2 (05:59→09:52)
[2022-06-26] MEDS: CARVEDILOL 25 MG TABLET (FP) PO SCH ×2 (09:48→21:44)
[2022-06-26] MEDS: amLODIPine BESYLATE 10 MG TABLET (FP) PO SCH (09:48)
[2022-06-26] MEDS: METHYL SALICYLATE/MENTHOL OINT 30 GM TUBE TP SCH ×2 (09:48→21:45)
[2022-06-26] MEDS: PRENATAL VITAMINS W/ FOLIC ACID TABLET (FP) PO SCH (09:48)
[2022-06-26] MEDS: CALCIUM 500MG/VIT-D 200 UNITS COMBO TABLET (FP) PO SCH ×2 (09:48→21:44)
[2022-06-26] MEDS: NICOTINE 7 MG/24 HOURS TOPICAL PATCH TD SCH (09:49)
[2022-06-26] MEDS: ASPIRIN 81 MG CHEWABLE TABLETS PO SCH (09:49)
[2022-06-26] MEDS: APIXABAN 5 MG TABLET PO SCH ×2 (09:49→21:44)
[2022-06-26] MEDS: NALTREXONE HCL 50 MG TABLET PO SCH (09:50)
[2022-06-26] MEDS: hydrOXYzine PAMOATE 25 MG CAPSULE (FP) PO PRN (09:50)
[2022-06-26] MEDS: ACETAMINOPHEN 325 MG TABLET (FP) PO PRN (09:52)
[2022-06-26] MEDS: ATORVASTATIN CA 40 MG TABLET (FP) PO SCH (21:44)
[2022-06-26] MEDS: MIRTAZAPINE 15 MG TABLET (FP) PO SCH (21:45)
[2022-06-26] MEDS: THIAMINE HCL 100 MG TABLET (FP) PO SCH (21:45)
[2022-06-26] MEDS: OLANZapine 7.5 MG TABLET PO SCH (21:45)
[2022-06-27] MEDS: OLANZapine 10 MG TABLET PO SCH (06:18)
[2022-06-27] MEDS: GABAPENTIN 300 MG CAPSULE PO SCH ×3 (06:18→22:15)
[2022-06-27] MEDS: metFORMIN HCL 500 MG TABLET (FP) PO SCH (06:18)
[2022-06-27] MEDS: APIXABAN 5 MG TABLET PO SCH ×2 (10:00→22:15)
[2022-06-27] MEDS: NALTREXONE HCL 50 MG TABLET PO SCH (10:01)
[2022-06-27] MEDS: METHYL SALICYLATE/MENTHOL OINT 30 GM TUBE TP SCH ×2 (10:01→22:16)
[2022-06-27] MEDS: amLODIPine BESYLATE 10 MG TABLET (FP) PO SCH (10:01)
[2022-06-27] MEDS: CARVEDILOL 25 MG TABLET (FP) PO SCH ×2 (10:01→22:15)
[2022-06-27] MEDS: CALCIUM 500MG/VIT-D 200 UNITS COMBO TABLET (FP) PO SCH ×2 (10:01→22:15)
[2022-06-27] MEDS: ASPIRIN 81 MG CHEWABLE TABLETS PO SCH (10:01)
[2022-06-27] MEDS: PRENATAL VITAMINS W/ FOLIC ACID TABLET (FP) PO SCH (10:02)
[2022-06-27] MEDS: NICOTINE 7 MG/24 HOURS TOPICAL PATCH TD SCH (10:02)
[2022-06-27] MEDS: LOPERAMIDE HCL 2 MG CAPSULE PO PRN (16:58)
[2022-06-27] MEDS: THIAMINE HCL 100 MG TABLET (FP) PO SCH (22:16)
[2022-06-27] MEDS: MIRTAZAPINE 15 MG TABLET (FP) PO SCH (22:16)
[2022-06-27] MEDS: ATORVASTATIN CA 40 MG TABLET (FP) PO SCH (22:28)
[2022-06-27] MEDS: OLANZapine 7.5 MG TABLET PO SCH (22:29)
[2022-06-28] MEDS: OLANZapine 10 MG TABLET PO SCH (06:03)
[2022-06-28] MEDS: GABAPENTIN 300 MG CAPSULE PO SCH ×3 (06:03→21:33)
[2022-06-28] MEDS: metFORMIN HCL 500 MG TABLET (FP) PO SCH (06:03)
[2022-06-28] MEDS: METHYL SALICYLATE/MENTHOL OINT 30 GM TUBE TP SCH ×2 (10:29→21:36)
[2022-06-28] MEDS: ASPIRIN 81 MG CHEWABLE TABLETS PO SCH (10:29)
[2022-06-28] MEDS: PRENATAL VITAMINS W/ FOLIC ACID TABLET (FP) PO SCH (10:29)
[2022-06-28] MEDS: NALTREXONE HCL 50 MG TABLET PO SCH (10:30)
[2022-06-28] MEDS: APIXABAN 5 MG TABLET PO SCH ×2 (10:30→21:33)
[2022-06-28] MEDS: NICOTINE 7 MG/24 HOURS TOPICAL PATCH TD SCH (10:30)
[2022-06-28] MEDS: CARVEDILOL 25 MG TABLET (FP) PO SCH ×2 (10:30→21:32)
[2022-06-28] MEDS: amLODIPine BESYLATE 10 MG TABLET (FP) PO SCH (10:30)
[2022-06-28] MEDS: CALCIUM 500MG/VIT-D 200 UNITS COMBO TABLET (FP) PO SCH ×2 (11:00→21:32)
[2022-06-28] MEDS: OLANZapine 7.5 MG TABLET PO SCH (21:32)
[2022-06-28] MEDS: THIAMINE HCL 100 MG TABLET (FP) PO SCH (21:33)
[2022-06-28] MEDS: ATORVASTATIN CA 40 MG TABLET (FP) PO SCH (21:33)
[2022-06-28] MEDS: MIRTAZAPINE 15 MG TABLET (FP) PO SCH (21:33)
[2022-06-29] MEDS: GABAPENTIN 300 MG CAPSULE PO SCH ×3 (05:56→21:34)
[2022-06-29] MEDS: metFORMIN HCL 500 MG TABLET (FP) PO SCH ×2 (05:56→17:56)
[2022-06-29] MEDS: OLANZapine 10 MG TABLET PO SCH ×2 (05:57→17:57)
[2022-06-29 07:05] VITALS: TEMP 97.5
[2022-06-29] MEDS: APIXABAN 5 MG TABLET PO SCH ×2 (10:36→21:33)
[2022-06-29] MEDS: PRENATAL VITAMINS W/ FOLIC ACID TABLET (FP) PO SCH (10:36)
[2022-06-29] MEDS: amLODIPine BESYLATE 10 MG TABLET (FP) PO SCH (10:37)
[2022-06-29] MEDS: METHYL SALICYLATE/MENTHOL OINT 30 GM TUBE TP SCH ×2 (10:37→21:35)
[2022-06-29] MEDS: CARVEDILOL 25 MG TABLET (FP) PO SCH ×2 (10:37→21:35)
[2022-06-29] MEDS: ASPIRIN 81 MG CHEWABLE TABLETS PO SCH (10:37)
[2022-06-29] MEDS: NALTREXONE HCL 50 MG TABLET PO SCH (10:37)
[2022-06-29] MEDS: CALCIUM 500MG/VIT-D 200 UNITS COMBO TABLET (FP) PO SCH ×2 (10:37→21:34)
[2022-06-29] MEDS: NICOTINE 7 MG/24 HOURS TOPICAL PATCH TD SCH (10:37)
[2022-06-29] MEDS: INSULIN SLIDING SCALE (NOVOLOG) 1 VIAL SQ SCH (18:00)
[2022-06-29] MEDS ORDERED: INSULIN SLIDING SCALE (NOVOLOG) 1 VIAL SQ ONE (18:00)
[2022-06-29] MEDS: ATORVASTATIN CA 40 MG TABLET (FP) PO SCH (21:33)
[2022-06-29] MEDS: OLANZapine 7.5 MG TABLET PO SCH (21:33)
[2022-06-29] MEDS: MIRTAZAPINE 15 MG TABLET (FP) PO SCH (21:33)
[2022-06-29] MEDS: THIAMINE HCL 100 MG TABLET (FP) PO SCH (21:34)
[2022-06-30] MEDS: INSULIN SLIDING SCALE (NOVOLOG) 1 VIAL SQ SCH (06:29)
[2022-06-30] MEDS: OLANZapine 10 MG TABLET PO SCH (06:30)
[2022-06-30] MEDS: metFORMIN HCL 500 MG TABLET (FP) PO SCH (06:30)
[2022-06-30] MEDS: GABAPENTIN 300 MG CAPSULE PO SCH (06:30)
[2022-06-30 07:07] VITALS: BP 131/66; PULSE 85; RESP 18
== END 2022-06-30 08:52 | disposition home or self-care (01) | DRG 772 ==
LOC: YASAS 11:28 → Y3W 11:29
PROVIDERS: ADMIT Allergy & Immunology; ATTEND Psychiatry & Neurology Pain Medicine
PROC: HZ42ZZZ Group Counseling for Substance Abuse Treatment, Cognitive-Behavioral (ICD-10-PCS; principal; 2022-06-02)
DX: F10.20 Alcohol dependence, uncomplicated (principal); F14.20 Cocaine dependence, uncomplicated; F12.20 Cannabis dependence, uncomplicated; F17.210 Nicotine dependence, cigarettes, uncomplicated; F25.9 Schizoaffective disorder, unspecified; I10 Essential (primary) hypertension; R78.5 Finding of other psychotropic drug in blood; E11.9 Type 2 diabetes mellitus without complications; M17.12 Unilateral primary osteoarthritis, left knee; R94.5 Abnormal results of liver function studies; Z79.84 Long term (current) use of oral hypoglycemic drugs; Q98.4 Klinefelter syndrome, unspecified; Z79.01 Long term (current) use of anticoagulants; Z99.89 Dependence on other enabling machines and devices; Z88.8 Allergy status to other drugs, medicaments and biological substances; Z91.011 Allergy to milk products
CPT/HCPCS: 82962

== ENCOUNTER 2023-03-16 17:21 | Inpatient (IN) | payer OTHER ==
[2023-03-16 20:18] VITALS: BMI 27.8
[2023-03-16] MEDS ORDERED: DICYCLOMINE HCL 10 MG CAPSULE PO PRN (23:26)
[2023-03-16] MEDS ORDERED: ONDANSETRON *ODT* 4 MG TABLET SL PRN (23:26)
[2023-03-16] MEDS ORDERED: MAGNESIUM HYDROX 2400MG/30ML ORAL SUSPENSION 30 ML CUP PO PRN (23:26)
[2023-03-16] MEDS ORDERED: NALOXONE HCL (KLOXXADO) 8 MG SPRAY NS PRN (23:26)
[2023-03-16] MEDS ORDERED: ACETAMINOPHEN 325 MG TABLET (FP) PO PRN ×2 (23:26)
[2023-03-16] MEDS ORDERED: POLYETHYLENE GLYCOL (HEALTHYLAX) 3350 17 GM PACKET PO PRN (23:26)
[2023-03-16] MEDS ORDERED: BENZOCAINE/MENTHOL (CHLORASEPTIC ) LOZENGE MM PRN (23:26)
[2023-03-16] MEDS ORDERED: LOPERAMIDE HCL 2 MG CAPSULE PO PRN (23:26)
[2023-03-16] MEDS ORDERED: guaiFENesin 600 MG TABLET.ER (FP) PO PRN (23:26)
[2023-03-16] MEDS ORDERED: BENZONATATE 200 MG CAPSULE PO PRN (23:26)
[2023-03-16] MEDS ORDERED: MAG HYDROX/AL HYDROX/SIMETH 30 ML UNIT-DOSE CUP PO PRN (23:26)
[2023-03-16] MEDS ORDERED: P-EPHED 60MG/TRIPROLIDI 2.5MG TABLET PO PRN (23:26)
[2023-03-16] MEDS ORDERED: MELATONIN 5 MG TABLETS PO PRN (23:26)
[2023-03-16] MEDS ORDERED: NALOXONE HCL 0.4 MG/ML VIAL IM PRN (23:26)
[2023-03-17] MEDS: INSULIN SLIDING SCALE (NOVOLOG) 1 VIAL SQ SCH ×2 (06:36→17:06)
[2023-03-17] MEDS: APIXABAN 5 MG TABLET PO SCH ×3 (08:54→22:30)
[2023-03-17] MEDS: NICOTINE 7 MG/24 HOURS TOPICAL PATCH TD SCH (10:20)
[2023-03-17] MEDS: PRENATAL VITAMINS W/ FOLIC ACID TABLET (FP) PO SCH (10:20)
[2023-03-17] MEDS: ASPIRIN 81 MG CHEWABLE TABLETS PO SCH (10:20)
[2023-03-17 12:56] LABS: POTASSIUM 4.3 mmol/L (3.5-5.1)
[2023-03-17 13:04] LABS: CALCIUM 8.6 mg/dL (8.5-10.1)
[2023-03-17 13:05] LABS: ALBUMIN 3.5 g/dl (3.4-5.0); BLOOD UREA NITROGEN 13.5 mg/dL (7-18)
[2023-03-17 13:08] LABS: CREATININE 0.8 mg/dL (0.55-1.3)
[2023-03-17 13:10] LABS: BILIRUBIN,TOTAL 0.5 mg/dL (0.2-1)
[2023-03-17 13:11] LABS: TOT PROT 6.5 g/dl (6.4-8.2)
[2023-03-17 13:20] LABS: HEMATOCRIT 38.2 % (35.4-49); HEMOGLOBIN 13.2 GM/dL (11.7-16.9); MCH 33.6 pg (25.7-33.7); MCHC 34.6 g/dl (32.0-35.9); MEAN PLT VOLUME 9.4 fl (7.5-11.1); PLATELET COUNT 176 10^3/uL (134-434); RBC 3.93 M/mm3 (4.00-5.60); RDW 14.8 % (11.9-15.9); WHITE BLOOD COUNT 4.5 K/mm3 (4.0-10.0)
[2023-03-17 14:15] LABS: HIV INTERPRETATION NEGATIVE (NEGATIVE)
[2023-03-17] MEDS: GABAPENTIN 300 MG CAPSULE PO SCH ×2 (15:15→22:30)
[2023-03-17] MEDS: THIAMINE HCL 100 MG TABLET (FP) PO SCH (22:30)
[2023-03-17] MEDS: OLANZapine 10 MG TABLET PO SCH (22:30)
[2023-03-18] MEDS: GABAPENTIN 300 MG CAPSULE PO SCH ×3 (05:44→22:26)
[2023-03-18] MEDS: INSULIN SLIDING SCALE (NOVOLOG) 1 VIAL SQ SCH ×2 (06:48→17:23)
[2023-03-18] MEDS ORDERED: diazePAM 5 MG TABLET PO PRN (09:58)
[2023-03-18] MEDS: NICOTINE 7 MG/24 HOURS TOPICAL PATCH TD SCH (10:43)
[2023-03-18] MEDS: PRENATAL VITAMINS W/ FOLIC ACID TABLET (FP) PO SCH (10:43)
[2023-03-18] MEDS: amLODIPine BESYLATE 10 MG TABLET (FP) PO SCH (10:44)
[2023-03-18] MEDS: ASPIRIN 81 MG CHEWABLE TABLETS PO SCH (10:44)
[2023-03-18] MEDS: metFORMIN HCL 500 MG TABLET (FP) PO SCH (10:44)
[2023-03-18] MEDS: APIXABAN 5 MG TABLET PO SCH ×2 (10:44→22:27)
[2023-03-18] MEDS: diazePAM 5 MG TABLET PO SCH ×3 (10:44→22:28)
[2023-03-18] MEDS: CARVEDILOL 12.5 MG TABLET (FP) PO SCH ×2 (10:52→22:26)
[2023-03-18] MEDS ORDERED: GABAPENTIN 300 MG CAPSULE PO SCH (14:00)
[2023-03-18] MEDS: THIAMINE HCL 100 MG TABLET (FP) PO SCH (22:26)
[2023-03-18] MEDS: OLANZapine 10 MG TABLET PO SCH (22:27)
[2023-03-19] MEDS: diazePAM 5 MG TABLET PO SCH ×4 (05:41→22:45)
[2023-03-19] MEDS: GABAPENTIN 300 MG CAPSULE PO SCH ×3 (06:15→22:45)
[2023-03-19] MEDS: INSULIN SLIDING SCALE (NOVOLOG) 1 VIAL SQ SCH ×2 (06:26→17:27)
[2023-03-19] MEDS: metFORMIN HCL 500 MG TABLET (FP) PO SCH (06:26)
[2023-03-19] MEDS: PRENATAL VITAMINS W/ FOLIC ACID TABLET (FP) PO SCH (10:43)
[2023-03-19] MEDS: amLODIPine BESYLATE 10 MG TABLET (FP) PO SCH (10:43)
[2023-03-19] MEDS: CARVEDILOL 12.5 MG TABLET (FP) PO SCH ×2 (10:43→22:45)
[2023-03-19] MEDS: APIXABAN 5 MG TABLET PO SCH ×2 (10:43→22:45)
[2023-03-19] MEDS: NICOTINE 7 MG/24 HOURS TOPICAL PATCH TD SCH (10:43)
[2023-03-19] MEDS: ASPIRIN 81 MG CHEWABLE TABLETS PO SCH (10:43)
[2023-03-19] MEDS: THIAMINE HCL 100 MG TABLET (FP) PO SCH (22:45)
[2023-03-19] MEDS: OLANZapine 10 MG TABLET PO SCH (22:45)
[2023-03-20] MEDS: diazePAM 5 MG TABLET PO SCH ×2 (05:58→17:32)
[2023-03-20] MEDS: GABAPENTIN 300 MG CAPSULE PO SCH ×3 (05:58→22:30)
[2023-03-20] MEDS: INSULIN SLIDING SCALE (NOVOLOG) 1 VIAL SQ SCH ×2 (06:13→17:33)
[2023-03-20] MEDS: APIXABAN 5 MG TABLET PO SCH ×2 (10:41→22:31)
[2023-03-20] MEDS: amLODIPine BESYLATE 10 MG TABLET (FP) PO SCH (10:41)
[2023-03-20] MEDS: PRENATAL VITAMINS W/ FOLIC ACID TABLET (FP) PO SCH (10:41)
[2023-03-20] MEDS: NICOTINE 7 MG/24 HOURS TOPICAL PATCH TD SCH (10:41)
[2023-03-20] MEDS: CARVEDILOL 12.5 MG TABLET (FP) PO SCH ×2 (10:41→22:31)
[2023-03-20] MEDS: ASPIRIN 81 MG CHEWABLE TABLETS PO SCH (10:41)
[2023-03-20] MEDS: THIAMINE HCL 100 MG TABLET (FP) PO SCH (22:30)
[2023-03-20] MEDS: OLANZapine 10 MG TABLET PO SCH (22:30)
[2023-03-21] MEDS ORDERED: diazePAM 5 MG TABLET PO ONE (06:00)
[2023-03-21] MEDS: GABAPENTIN 300 MG CAPSULE PO SCH (06:28)
[2023-03-21] MEDS: INSULIN SLIDING SCALE (NOVOLOG) 1 VIAL SQ SCH (06:29)
[2023-03-21 07:30] VITALS: RESP 17
[2023-03-21] MEDS: CARVEDILOL 12.5 MG TABLET (FP) PO SCH (09:57)
[2023-03-21] MEDS: ASPIRIN 81 MG CHEWABLE TABLETS PO SCH (09:59)
[2023-03-21] MEDS: amLODIPine BESYLATE 10 MG TABLET (FP) PO SCH (09:59)
[2023-03-21] MEDS: APIXABAN 5 MG TABLET PO SCH (09:59)
[2023-03-21] MEDS: PRENATAL VITAMINS W/ FOLIC ACID TABLET (FP) PO SCH (10:00)
[2023-03-21] MEDS: NICOTINE 7 MG/24 HOURS TOPICAL PATCH TD SCH (10:03)
[2023-03-21 10:05] VITALS: BP 104/56; PULSE 81; TEMP 96.9
== END 2023-03-21 10:57 | disposition home or self-care (01) | DRG 774 ==
LOC: YASAS 17:21 → Y6N 23:50
PROVIDERS: ADMIT Allergy & Immunology; ATTEND Surgery
PROC: HZ2ZZZZ Detoxification Services for Substance Abuse Treatment (ICD-10-PCS; principal; 2023-03-16)
DX: F10.230 Alcohol dependence with withdrawal, uncomplicated (principal); F14.20 Cocaine dependence, uncomplicated; F12.20 Cannabis dependence, uncomplicated; F17.210 Nicotine dependence, cigarettes, uncomplicated; F25.9 Schizoaffective disorder, unspecified; I10 Essential (primary) hypertension; J45.909 Unspecified asthma, uncomplicated; E78.2 Mixed hyperlipidemia; I25.2 Old myocardial infarction; E11.9 Type 2 diabetes mellitus without complications; Z79.84 Long term (current) use of oral hypoglycemic drugs; M17.0 Bilateral primary osteoarthritis of knee; Z62.810 Personal history of physical and sexual abuse in childhood; Z99.89 Dependence on other enabling machines and devices; Z79.01 Long term (current) use of anticoagulants; Z88.8 Allergy status to other drugs, medicaments and biological substances; Z91.040 Latex allergy status
CPT/HCPCS: 36415; 80053; 82962; 85027; 86780; 87389; C9803-CS; U0003; U0005

== ENCOUNTER 2025-07-25 11:56 | Inpatient (IN) | payer OTHER ==
[2025-07-25 12:34] VITALS: BMI 28.0
[2025-07-25] MEDS ORDERED: ACETAMINOPHEN 325 MG TABLET (FP) PO PRN (12:53)
[2025-07-25] MEDS ORDERED: IBUPROFEN 400 MG TABLET (FP) PO PRN (12:53)
[2025-07-25] MEDS ORDERED: NICOTINE POLACRILEX 2 MG GUM BUC PRN (12:53)
[2025-07-25] MEDS ORDERED: MAG HYDROX/AL HYDROX/SIMETH 30 ML UNIT-DOSE CUP PO PRN (12:53)
[2025-07-25] MEDS ORDERED: NALOXONE (NARCAN) HCL 4 MG/0.1 ML SPRAY NS PRN (12:53)
[2025-07-25] MEDS ORDERED: MAGNESIUM HYDROX 2400MG/30ML ORAL SUSPENSION 30 ML CUP PO PRN (12:53)
[2025-07-25] MEDS ORDERED: BENZOCAINE/MENTHOL (CHLORASEPTIC ) LOZENGE MM PRN (12:53)
[2025-07-25] MEDS ORDERED: LOPERAMIDE HCL 2 MG CAPSULE PO PRN (12:53)
[2025-07-25] MEDS ORDERED: hydrOXYzine PAMOATE 25 MG CAPSULE (FP) PO PRN (12:53)
[2025-07-25] MEDS ORDERED: BISMUTH SUBSALICYLATE 524 MG/30 ML PO PRN (12:53)
[2025-07-25] MEDS ORDERED: POLYETHYLENE GLYCOL (HEALTHYLAX) 3350 17 GM PACKET PO PRN (12:53)
[2025-07-25] MEDS ORDERED: ONDANSETRON *ODT* 4 MG TABLET SL PRN (12:53)
[2025-07-25] MEDS ORDERED: BENZONATATE 200 MG CAPSULE PO PRN (12:53)
[2025-07-25] MEDS ORDERED: METHOCARBAMOL 500 MG TABLET PO PRN (12:53)
[2025-07-25] MEDS ORDERED: guaiFENesin 600 MG TABLET.ER (FP) PO PRN (12:53)
[2025-07-25] MEDS ORDERED: DICYCLOMINE HCL 10 MG CAPSULE PO PRN (12:53)
[2025-07-25] MEDS ORDERED: IBUPROFEN 600 MG TABLET (FP) PO PRN (12:53)
[2025-07-25] MEDS ORDERED: GABAPENTIN 100 MG CAPSULE ONE (14:31)
[2025-07-25] MEDS: GABAPENTIN 300 MG CAPSULE PO SCH (14:34)
[2025-07-25] MEDS: CARVEDILOL 6.25 MG TABLET (FP) PO SCH (22:08)
[2025-07-25] MEDS: ATORVASTATIN CA 40 MG TABLET (FP) PO SCH (22:09)
[2025-07-25] MEDS: MELATONIN 5 MG TABLETS PO SCH (22:09)
[2025-07-25] MEDS: BENZTROPINE MESYLATE 1 MG TABLET PO SCH (22:09)
[2025-07-25] MEDS: THIAMINE 100 MG TABLET PO SCH (22:09)
[2025-07-25] MEDS: APIXABAN 5 MG TABLET PO SCH (22:09)
[2025-07-26 10:29] LABS: MCHC 31.9 g/dl (32.3-36.5); MEAN CELL VOLUME 99.2 fl (79.0-92.2); MEAN PLT VOLUME 11.8 fl (9.4-12.4); RDW 13.7 % (12.2-16.4)
[2025-07-26] MEDS: PANTOPRAZOLE 20 MG TABLET PO SCH (10:58)
[2025-07-26] MEDS: PRENATAL VITAMINS W/ FOLIC ACID TABLET (FP) PO SCH (10:58)
[2025-07-26] MEDS: ASPIRIN 81 MG CHEWABLE TABLETS PO SCH (10:58)
[2025-07-26] MEDS: NICOTINE 21 MG/24 HOURS TOPICAL PATCH TD SCH (10:59)
[2025-07-26] MEDS: VERAPAMIL HCL 120 MG E.R. TABLET PO SCH (10:59)
[2025-07-26 11:01] LABS: GLUCOSE,RANDOM 171.0 mg/dL (74-106); TOT PROT 6.2 g/dl (6.4-8.2)
[2025-07-26 11:02] LABS: CO2 27.0 mmol/L (21-32)
[2025-07-26 11:03] LABS: ALK PHOS 80.0 U/L (40-150)
[2025-07-26 11:06] LABS: SGOT/AST 25.0 U/L (5-34); SGPT/ALT 38.0 U/L (0-55)
[2025-07-26 11:07] LABS: CREATININE 0.8 mg/dL (0.55-1.3)
[2025-07-26] MEDS ORDERED: NICOTINE POLACRILEX 2 MG GUM BUC PRN (15:05)
[2025-07-26] MEDS ORDERED: NICOTINE POLACRILEX 2 MG LOZENGE BC PRN (17:17)
[2025-07-27 09:00] VITALS: BP 118/64; PULSE 81; RESP 18; TEMP 96.2
[2025-07-28] MEDS ORDERED: NALTREXONE MICROSPHERES (VIVITROL) 380 MG DISP.SYRIN IM ONE (13:00)
== END 2025-07-27 10:18 | disposition home or self-care (01) | DRG 774 ==
LOC: YASAS 11:56 → Y3N 15:27
PROVIDERS: ADMIT Family Medicine; ATTEND Counselor Addiction (Substance Use Disorder)
PROC: HZ2ZZZZ Detoxification Services for Substance Abuse Treatment (ICD-10-PCS; principal; 2025-07-25)
DX: F10.230 Alcohol dependence with withdrawal, uncomplicated (principal); F10.220 Alcohol dependence with intoxication, uncomplicated; F14.20 Cocaine dependence, uncomplicated; F17.210 Nicotine dependence, cigarettes, uncomplicated; F12.20 Cannabis dependence, uncomplicated; F25.9 Schizoaffective disorder, unspecified; G62.9 Polyneuropathy, unspecified; I10 Essential (primary) hypertension; L21.9 Seborrheic dermatitis, unspecified; E11.9 Type 2 diabetes mellitus without complications; Z79.84 Long term (current) use of oral hypoglycemic drugs; M17.0 Bilateral primary osteoarthritis of knee; Z86.718 Personal history of other venous thrombosis and embolism; Z88.8 Allergy status to other drugs, medicaments and biological substances; Z79.01 Long term (current) use of anticoagulants
CPT/HCPCS: 36415; 71045-TC-FY; 80053; 80307; 82962; 83036; 83690; 83735; 84100; 84484; 85025; 85027; 85610; 85730; 86780; 86803; 87389; 93005; 93010; 93306-TC; 99285-25; G0378